=== PATIENT | female | born 1945 | race Caucasian/White ===

== ENCOUNTER 2017-10-07 09:52 | Inpatient (IN) | payer MEDICARE, MEDICAID ==
[2017-10-07 10:28] LABS: #Eosinphils 0.1 thou/uL (0.0-0.7); #Lymphocytes 1.7 thou/uL (1.20-3.40); #Neutrophils 8.3 thou/uL (1.40-6.50); %Basophils 0.3 % (0.0-1.0); %Lymphocytes 15.3 % (21.0-51.0); %Monocytes 8.9 % (0.0-10.0); %Neutrophils 74.4 % (42.0-75.0); Mean Corpuscular HGB CONC 33.1 g/dL (32.0-36.0); Mean Corpuscular Hemoglobin 29.5 pg (27.0-31.0); Mean Platelet Volume 7.5 fL (7.4-10.4); Platelet Count 224 thou/uL (130-400); RBC Distribution Width 13.9 % (11.5-14.5); Red Blood Cell (RBC) Count 3.72 mill/uL (4.20-5.40); White Blood Cell (WBC) Count 11.2 thou/uL (4.8-10.8)
[2017-10-07 10:50] LABS: ALT (SGPT) 11 U/L (8-55); AST (SGOT) 17 U/L (5-34); Albumin 4.1 g/dL (3.4-4.8); Alkaline Phosphatase 79 U/L (40-150); Anion Gap 13 mmol/L (10-20); BUN (Urea Nitrogen) 16 mg/dL (9.8-20.1); Bilirubin, Total 0.4 mg/dL (0.2-1.2); Calc. Creatinine Clearance 0 mL/min (70-130); Calcium 9.4 mg/dL (7.8-10.44); Carbon Dioxide 23 mmol/L (23-31); Chloride 104 mmol/L (98-107); Estimated GFR-MDRD 63; Globulin 2.7 g/dL (2.4-3.5); Glucose 140 mg/dL (83-110); Potassium 4.1 mmol/L (3.5-5.1); Protein, Total 6.8 g/dL (6.0-8.3); Sodium 136 mmol/L (136-145)
[2017-10-07] MEDS ORDERED: metroNIDAZOLE 500 MG in Premix Bag 1 BAG IVPB SCH ×2 (11:00→14:00)
[2017-10-07] MEDS ORDERED: metroNIDAZOLE 500 MG/100 ML BAG ONE (11:30)
[2017-10-07] MEDS ORDERED: Sodium Chloride 0.65% Nasal 44 ML BOT EA NARE PRN (12:36)
[2017-10-07] MEDS ORDERED: Loratadine 10 MG TAB PO PRN (12:36)
[2017-10-07] MEDS ORDERED: Ondansetron HCl/PF 4 MG/2 ML Vial IVP PRN (12:36)
[2017-10-07] MEDS ORDERED: Chloraseptic Spray 180 ml Bottle PO PRN (12:36)
[2017-10-07] MEDS ORDERED: Artificial Tears 18 DROP/0.9 ML EA EYE PRN (12:36)
[2017-10-07] MEDS ORDERED: Senokot 8.6 MG TAB PO PRN (12:36)
[2017-10-07] MEDS ORDERED: Eucerin (Mineral Oil/Petrolatum,White) 30 gm Jar TOP PRN (12:36)
[2017-10-07] MEDS ORDERED: hydrALAZINE 20 MG/ML VIAL SLOW IVP PRN (12:36)
[2017-10-07] MEDS ORDERED: Zolpidem Tartrate 5 MG TAB PO PRN (12:36)
[2017-10-07] MEDS ORDERED: Ondansetron ODT 4 MG TAB PO PRN (12:36)
[2017-10-07] MEDS ORDERED: Acetaminophen 325 MG TAB PO PRN (12:36)
[2017-10-07] MEDS ORDERED: Mag-Al 1200 mg/1200 mg/30 ML UDCUP PO PRN (12:36)
[2017-10-07] MEDS ORDERED: Milk Of Magnesia 30 ML UDCUP PO PRN (12:36)
[2017-10-07] MEDS ORDERED: Diabetic Tussin 200 MG/10 ML UDCUP PO PRN (12:36)
[2017-10-07 12:40] VITALS: BMI 25.6
[2017-10-07] MEDS ORDERED: HumaLOG 300 UNITS/3 ML VIAL SC PRN ×2 (12:40)
[2017-10-07] MEDS ORDERED: Dextrose 50% Abboject 50 ML SYRINGE SLOW IVP PRN (12:40)
[2017-10-07] MEDS ORDERED: Dextrose 5% in Water 1,000 ML IV PRN (12:40)
[2017-10-07] MEDS ORDERED: Mometasone/Formoterol 120 PUFF INHALER INH PRN (12:41)
--- NOTE | 2017-10-07 13:12 | HP ---
PRIMARY CARE PHYSICIAN: Dr. Boy Quintanilla. REASON FOR ADMISSION: Acute colitis and hematochezia. HISTORY OF PRESENT ILLNESS: A 72-year-old female who has underlying history of diabetes type 2, hype rtension, COPD, chronic respiratory failure on home oxygen who went last night to [facility] for hematochezia. The patient was having hematochezia at home yesterday afternoon. She was havin g lower abdominal severe crampy pain. Her pain was also going to back. She had a couple of times of hematochezia and that is why family member took her to emergency room last night and CT of the abdom en and pelvis was done which showed colitis. Patient was treated with IV antibiotic therapy in the e mergency room and she was discharged with a prescription of oral antibiotic therapy and outpatient fo llowup with cellophane bath mixer. The patient went to home and she had a large bloody bowel movement around 1:00 a.m. and subsequently at 4:00 a.m. and this morning around 8:00 a.m. It was significant amount and jelly-like associated w ith crampy abdominal pain. The patient was feeling nausea, vomiting, and dizziness. She was feeling exhausted and very weak. Normally, the patient take aspirin, but she was not taking aspirin for the last couple of days. The patient had a colonoscopy several years ago by Dr. Taylor. The patient also has previous history of weight loss, but recently she started gaining weight. She denies any f amily history of colon cancer. She denies any associated constipation. She denies any diarrhea. Sh e denies any recent antibiotic exposure other than, which was given last night. Last night, the patient had routine blood test, at that time her hemoglobin was stable and she did no t have any ongoing bleeding and that is why she was discharged from the ER. Today, her blood count i s pretty much stable from last night. This morning, the patient was having frequent episodes of melly tochezia and that is why she called her primary care physician, Dr. Quintanilla who advised her to go to emergency room for further evaluation. In the emergency room, patient was hemodynamically stable. The patient denies any UTI symptoms. She denies any headache, fall, syncope. She denies any chest pain, palpitation. She denies any cough, hemoptysis. REVIEW OF SYSTEMS: The following complete review of systems was negative, unless otherwise mentioned in the HPI or below: Constitutional: Weight loss or gain, ability to conduct usual activities. Skin: Rash, itching. Eyes: Double vision, pain. ENT/Mouth: Nose bleeding, neck stiffness, pain, tenderness. Cardiovascular: Palpitations, dyspnea on exertion, orthopnea. Respiratory: Shortness of breath, wheezing, cough, hemoptysis, fever or night sweats. Gastrointestinal: Poor appetite, abdominal pain, heartburn, nausea, vomiting, constipation, or diarr hea. Genitourinary: Urgency, frequency, dysuria, nocturia. Musculoskeletal: Pain, swelling. Neurologic/Psychiatric: Anxiety, depression. Allergy/Immunologic: Skin rash, bleeding tendency. Please see my HPI for pertinent positive and negative. All other review of system reviewed and negat so except as mentioned in the HPI. PAST MEDICAL HISTORY: Diabetes type 2, gastroesophageal reflux disease, dyslipidemia, COPD, hyperten juanjose, chronic respiratory failure on home oxygen. PAST SURGICAL HISTORY: Laparotomy, hysterectomy, back surgery for ruptured disk, appendicectomy, ton sillectomy. PAST PSYCHIATRIC HISTORY: Anxiety and depression. SOCIAL HISTORY: The patient lives at home. She is an ex-smoker. She quit smoking for 5 years ago. She lives at home with the family. No history of alcohol or other illicit drug abuse. FAMILY HISTORY: Grandson recently diagnosed with Crohn's disease. Mother had a stroke. Father had metastatic lung cancer. ALLERGIES: CODEINE. CURRENT HOME MEDICATIONS: Nexium 40 mg p.o. daily, Prozac 20 mg p.o. daily, quinapril 40 mg p.o. gisselle ly, amlodipine 2.5 mg p.o. daily, levocetirizine 5 mg p.o. daily, meclizine 25 mg as needed, Januvia 50 mg p.o. daily, amlodipine 2.5 mg p.o. daily, pravastatin 40 mg p.o. at bedtime, gabapentin 300 mg p.o. t.i.d., aspirin 81 mg p.o. daily, Cardizem-CD 180 mg 2 tablets in the morning. EMERGENCY ROOM COURSE: Patient is given Levaquin, Flagyl, and IV fluid. PHYSICAL EXAMINATION: VITAL SIGNS: On arrival, blood pressure 136/73, pulse 69, respiratory rate 20, temperature 98.3, sat uration 98% on room air, weight 85.2 kilograms. GENERAL: The patient is currently alert, awake, no obvious acute distress. HEENT: Head: Normocephalic, atraumatic. Eyes: Pupils round, reactive to light. Extraocular muscl e intact. ENT: Oropharynx within normal limits. Moist mucous membranes. No oral lesion, no pharyn geal erythema, no exudate. NECK: Supple, no JVD, no thyromegaly, no carotid bruit, no jugular venous distention. LUNGS: Clear to auscultation without any rhonchi or rales. CARDIAC: S1, S2 appears regular. No murmur, no gallop, no rub. ABDOMEN: Soft. The patient does have diffuse tenderness in lower abdomen, no peritoneal sign, no gu arding, no rigidity, no rebound. BACK: Unremarkable, no CVA tenderness. EXTREMITIES: Upper extremity, passive movement of all joints are normal. Lower extremity, no edema, no calf tenderness. Good distal pulsation. SKIN: No skin rash. HEMATOLOGICAL: No lymphadenopathy. PSYCHIATRIC: Normal affect. NEUROLOGIC: Nonfocal examination. SIGNIFICANT LABORATORY DATA AND IMAGING: Blood test done last night in the emergency room reviewed. Currently, CBC: WBC 11.2, hemoglobin 11.0, platelet 224. INR 1.0. BMP: Sodium 136, potassium 4.1 , chloride 104, carbon dioxide 23, anion gap 13, BUN 16, creatinine 0.89, glucose 140, calcium 9.4. LFT: AST 17, ALT 11, alkaline phosphatase 79, albumin 4.1. Cardiac enzymes negative. Urinalysis, p roteinuria. CT of the abdomen and pelvis done last night in the emergency room, which showed left co fernanda mural thickening and surrounding inflammation consistent with colitis. ASSESSMENT AND PLAN: 1. Acute left-sided colitis, most likely this patient has ischemic colitis given multiple medical pr oblems. Her pain is also out of proportion to examine. She has hematochezia. The patient's another differential is infectious etiology, but less likely, we will rule out infectious etiology as well. Another possibility is diverticular bleed, but associated pain is against of diverticular bleed, but is possible. At this point, the patient will need a GI consultation. The patient will need a colon oscopy. We will keep her on clear liquid diet. We will continue with IV fluid. We will continue em piric Levaquin and Flagyl for possible infection and send stool for infection workup. We will monito r hemoglobin and consider transfusion if hemoglobin is less than 7. 2. Diabetes type 2. Insulin as per sliding scale per protocol. Continue Januvia 50 mg p.o. daily. 3. Anxiety and depression. Continue Prozac 20 mg p.o. daily. 4. Hypertension. Continue quinapril 40 mg p.o. daily, amlodipine 2.5 mg p.o. daily and Cardizem-CD 360 mg p.o. daily. 5. Gastroesophageal reflux disease. We will continue Protonix 40 mg IV daily. 6. Dyslipidemia. We will continue pravastatin 40 mg p.o. at bedtime. 7. Chronic respiratory failure on home oxygen therapy. We will maintain oxygen saturation above 92% with oxygen. 8. Peripheral neuropathy. Continue gabapentin 300 mg p.o. 3 times daily. 9. Anemia, likely due to blood loss. We will monitor H&H and consider transfusion if hemoglobin is less than 7. 10. Chronic obstructive pulmonary disease. We will continue DuoNeb therapy q.6 hourly p.r.n. 11. D eep venous thrombosis prophylaxis. No Lovenox or antiplatelet medication because of bleeding. 12. Gastrointestinal prophylaxis. Patient is already on Protonix therapy. 13. CODE STATUS: The patient is FULL CODE. Patient's daughter is surrogate decision maker. Disposition plan based on clinical course. We are expecting patient's stay in the hospital more than 2 midnights. Plan of care discussed with the patient and family member at bedside in the emergency room.
[2017-10-07] MEDS: Sodium Chloride 0.9% 1,000 ML IV SCH ×2 (13:28→23:35)
[2017-10-07] MEDS: Fentanyl 100 MCG/2 ML VIAL SLOW IVP PRN ×2 (13:58→23:30)
[2017-10-07 14:20] LABS: Hemoglobin 9.8 g/dL (12.0-16.0); Mean Corpuscular HGB CONC 33.7 g/dL (32.0-36.0); Mean Corpuscular Hemoglobin 29.9 pg (27.0-31.0); Mean Corpuscular Volume 88.8 fL (78.0-98.0); Mean Platelet Volume 6.8 fL (7.4-10.4); Platelet Count 182 thou/uL (130-400); RBC Distribution Width 14.2 % (11.5-14.5); Red Blood Cell (RBC) Count 3.28 mill/uL (4.20-5.40); White Blood Cell (WBC) Count 10.2 thou/uL (4.8-10.8)
--- NOTE | 2017-10-07 14:21 | CON ---
DATE OF CONSULTATION: 10/07/2017 CHIEF COMPLAINT: Abdominal pain and bloody stools. HISTORY OF PRESENT ILLNESS: Ms. Saldana is a 72-year-old woman who yesterday afternoon had an abrupt on set of bloody diarrhea. She had a couple episodes at home and then went to the emergency room in [facility]. She was evaluated there and discharged home with recommendation to follow up with GI as an ou tpatient. She then had multiple other large bloody stools such that she came on back to the emergenc y room this morning. She had one episode of nausea with vomiting yesterday afternoon, that has since resolved. She has diffuse aching and constant abdominal pain and more severe cramping in the left c olon immediately before bowel movements. She has had no fever with this. She ate breakfast normally yesterday morning and just had abrupt onset of these symptoms yesterday afternoon. PAST MEDICAL HISTORY: COPD on home oxygen, diabetes mellitus type 2, gastroesophageal reflux, hyperl ipidemia, hypertension. She has a history of colon polyps with last colonoscopy over [address] Taylor in the [facility] they believe. She was apparently treated for tub erculosis in the past. PAST SURGICAL HISTORY: She had what she describes as an exploratory surgery to evaluate vaginal blee ding in the past. She has since undergone complete hysterectomy. She has had back surgery, appendec charisse, tonsillectomy and orthopedic surgery. FAMILY HISTORY: Negative for GI malignancy or pancreatic cancer. SOCIAL HISTORY: She smoked all her life. She quit smoking last year and has been using E-cigarettes intermittently since then. No drugs, no alcohol. REVIEW OF SYSTEMS: Negative x10 systems reviewed except as stated in history of present illness. ALLERGIES: CODEINE. MEDICATIONS PRIOR TO ADMISSION: Nexium, fluoxetine, quinapril, amlodipine, levocetirizine, meclizine , Januvia, amlodipine, pravastatin, gabapentin, aspirin, diltiazem. PHYSICAL EXAMINATION: VITAL SIGNS: Temperature 98.1, pulse 61, blood pressure 147/67. GENERAL: She is in no acute distress, awake and alert. EYES: Eyes have no scleral icterus. OROPHARYNX: Clear, without lesions. NECK: No cervical or supraclavicular lymphadenopathy. LUNGS: Clear to auscultation bilaterally. HEART: Regular rate and rhythm without murmur. ABDOMEN: Soft. She is tender in the lower abdomen bilaterally without guarding. Bowel sounds are p resent. EXTREMITIES: No lower extremity edema. NEUROLOGIC: Cranial nerves are grossly intact. LABORATORY: Creatinine 0.89. LFTs were normal. Albumin 4.1. INR 1.0. White blood cell count 11.2 , hemoglobin 11.0, platelets 224. IMPRESSION: Ischemic colitis. She presents with abrupt onset of bloody diarrhea and left-sided abdo kevin pain. She is on home oxygen for emphysema and review of the CT scan shows significant calcific ations of the abdominal aorta. She is on multiple blood pressure medications. CT scan shows an abru pt transition from normal wall thickness colon to thickened colon starting at the splenic flexure all the way down to the left colon to the rectum. This is in the superior mesenteric artery distributio n. Treatment will be with IV fluids. I would cover with antibiotics as well. We will still need to rule out infectious source with stool studies. She is due for a colonoscopy in light of her history of colon polyps. Colonoscopy currently will unlikely change room attendant. If she fails to improve wi th IV fluids and antibiotics, then colonoscopy can be performed to confirm the diagnosis and rule out inflammatory bowel disease; however, inflammatory bowel disease is very unlikely given the new onset of abrupt symptoms. Colonoscopy will be better served to be done in a month, such that colon polyp surveillance can be performed at the same time and a full colonoscopy to evaluate healing. She follo ws with Dr. Taylor previously and can follow up for outpatient colonoscopy in a month for that. C T scan did note presence of diverticulosis; however diverticulitis certainly would not cause this cli nical picture or distribution of inflammatory changes in the colon. RECOMMENDATIONS: 1. IV fluids. 2. She is on levofloxacin and metronidazole. She can complete a 7-day course of these antibiotics. 3. Hopefully, she will be able to discharge home in around 2-4 days depending on her response to the fluids. 4. To avoid future episodes she will need to drink plenty of fluids and avoid hypotension. She is o n multiple antihypertensive medications and will need to monitor her blood pressure.
[2017-10-07] MEDS: Gabapentin 100 MG CAP PO SCH ×2 (15:34→20:03)
[2017-10-07] MEDS: Pravastatin Sodium 40 MG TAB PO SCH (15:35)
[2017-10-07] MEDS: Alogliptin 25 MG TAB PO SCH (15:36)
[2017-10-07 18:26] LABS: Hemoglobin 9.8 g/dL (12.0-16.0)
[2017-10-07] MEDS: metroNIDAZOLE 500 MG in Premix Bag 1 BAG IVPB SCH (19:51)
[2017-10-07] MEDS: Meclizine HCl 25 MG TAB PO SCH (20:04)
[2017-10-08 00:03] LABS: Hemoglobin 9.7 g/dL (12.0-16.0)
[2017-10-08] MEDS: metroNIDAZOLE 500 MG in Premix Bag 1 BAG IVPB SCH ×3 (04:05→20:17)
[2017-10-08 04:54] LABS: #Basophils 0.1 thou/uL (0.0-0.2); #Eosinphils 0.2 thou/uL (0.0-0.7); #Lymphocytes 2.3 thou/uL (1.20-3.40); #Monocytes 0.7 thou/uL (0.11-0.59); #Neutrophils 4.4 thou/uL (1.40-6.50); %Basophils 0.8 % (0.0-1.0); %Eosinophils 2.6 % (0.0-10.0); %Lymphocytes 30.1 % (21.0-51.0); %Monocytes 9.1 % (0.0-10.0); %Neutrophils 57.4 % (42.0-75.0); Hemoglobin 9.5 g/dL (12.0-16.0); Mean Corpuscular HGB CONC 32.9 g/dL (32.0-36.0); Mean Corpuscular Hemoglobin 29.5 pg (27.0-31.0); Mean Corpuscular Volume 89.7 fL (78.0-98.0); Mean Platelet Volume 7.3 fL (7.4-10.4); Platelet Count 197 thou/uL (130-400); RBC Distribution Width 14.1 % (11.5-14.5); Red Blood Cell (RBC) Count 3.22 mill/uL (4.20-5.40); White Blood Cell (WBC) Count 7.7 thou/uL (4.8-10.8)
[2017-10-08 05:15] LABS: ALT (SGPT) 11 U/L (8-55); AST (SGOT) 14 U/L (5-34); Albumin 3.4 g/dL (3.4-4.8); Alkaline Phosphatase 64 U/L (40-150); Anion Gap 11 mmol/L (10-20); BUN (Urea Nitrogen) 7 mg/dL (9.8-20.1); Bilirubin, Total 0.3 mg/dL (0.2-1.2); Calc. Creatinine Clearance 115 mL/min (70-130); Calcium 8.2 mg/dL (7.8-10.44); Carbon Dioxide 24 mmol/L (23-31); Chloride 107 mmol/L (98-107); Estimated GFR-MDRD Greater than 90; Globulin 2.1 g/dL (2.4-3.5); Glucose 115 mg/dL (83-110); Potassium 3.8 mmol/L (3.5-5.1); Protein, Total 5.5 g/dL (6.0-8.3); Sodium 138 mmol/L (136-145)
[2017-10-08] MEDS: Saccharomyces boulardii 250 MG CAP PO SCH (08:57)
[2017-10-08] MEDS: Amlodipine 5 MG TAB PO SCH (08:57)
[2017-10-08] MEDS: Gabapentin 100 MG CAP PO SCH ×3 (08:58→20:17)
[2017-10-08] MEDS: Pantoprazole 40 MG VIAL IVP SCH (08:58)
[2017-10-08] MEDS: FLUoxetine HCl 20 MG CAP PO SCH (08:58)
[2017-10-08] MEDS: Sodium Chloride 0.9% 1,000 ML IV SCH ×3 (08:59→23:59)
[2017-10-08] MEDS ORDERED: Alogliptin 25 MG TAB PO SCH (09:00)
[2017-10-08] MEDS ORDERED: Pravastatin Sodium 40 MG TAB PO SCH (09:00)
--- NOTE | 2017-10-08 12:10 | PDOC.PN ---
- Subjective Encounter Start Date: 10/08/17 Encounter Start Time: 06:45 -: old records requested/rev Patient seen and examined. No new complaints. No overnight events - Objective Resuscitation Status: Resuscitation Status FULL:Full Resuscitation MAR Reviewed: Yes Vital Signs & Weight: Vital Signs (12 hours) Temp Pulse Resp BP BP Pulse Ox 10/08/17 08:57 69 10/08/17 08:00 97.6 F 69 16 96 10/08/17 07:33 97.6 F 69 16 148/68 H 96 10/08/17 04:00 97.5 F L 73 19 126/56 L 95 Weight Admit Weight 189 lb 1 oz Weight 189 lb 9.173 oz I&O: 10/07/17 10/08/17 10/09/17 06:59 06:59 06:59 Intake Total 3025 760 Balance 3025 760 Result Diagrams: 10/08/17 03:56 10/08/17 03:56 Additional Labs: Accuchecks 10/08/17 10/08/17 10/07/17 11:10 05:29 19:18 POC Glucose 107 140 H 138 H 10/07/17 10/07/17 15:58 13:02 POC Glucose 102 116 H Phys Exam - Physical Examination Constitutional: NAD HEENT: PERRLA, moist MMs, sclera anicteric Neck: no JVD, supple Respiratory: no wheezing, no rales, no rhonchi Cardiovascular: RRR, no significant murmur, no rub Gastrointestinal: soft, non-tender, no distention, positive bowel sounds Musculoskeletal: no edema, pulses present Neurological: non-focal, normal sensation Psychiatric: normal affect, A&O x 3 Skin: no rash, normal turgor Dx/Plan (1) Acute colitis Code(s): K52.9 - NONINFECTIVE GASTROENTERITIS AND COLITIS, UNSPECIFIED Status : Acute (2) Chronic respiratory failure with hypoxia, on home oxygen therapy Code(s): J96.11 - CHRONIC RESPIRATORY FAILURE WITH HYPOXIA; Z99.81 - DEPENDENCE ON SUPPLEMENTAL OXYGEN Status: Acute (3) Anemia, normocytic normochromic Code(s): D64.9 - ANEMIA, UNSPECIFIED Status: Chronic (4) COPD (chronic obstructive pulmonary disease) Status: Chronic (5) Diabetes type 2, controlled Code(s): E11.9 - TYPE 2 DIABETES MELLITUS WITHOUT COMPLICATIONS Status: Chronic (6) Dyslipidemia Code(s): E78.5 - HYPERLIPIDEMIA, UNSPECIFIED Status: Chronic (7) GERD (gastroesophageal reflux disease) Code(s): K21.9 - GASTRO-ESOPHAGEAL REFLUX DISEASE WITHOUT ESOPHAGITIS Status: Chronic (8) Hypertension Code(s): I10 - ESSENTIAL (PRIMARY) HYPERTENSION Status: Chronic - Plan cont current plan of care, continue antibiotics * suspected for ischemic colitis * infection work up so far negative * medication reviewed as below * symptomatic treatment * continue empiric levaquin and flagyl * GI recommendation noted * continue IVF * advance to full liquid diet * pain controlled. Review of Systems - Review of Systems Eyes: negative: Pain, Vision Change, Conjunctivae Inflammation, Eyelid Inflammation, Redness, Other ENT: negative: Ear Pain, Ear Discharge, Nose Pain, Nose Discharge, Nose Congestion, Mouth Pain, Mouth Swelling, Throat Pain, Throat Swelling, Other Respiratory: negative: Cough, Dry, Shortness of Breath, Hemoptysis, SOB with Excertion, Pleuritic Pain, Sputum, Wheezing Cardiovascular: negative: chest pain, palpitations, orthopnea, paroxysmal nocturnal dyspnea, edema, light headedness, other Gastrointestinal: Abdominal Pain. negative: Nausea, Vomiting, Diarrhea, Constipation, Melena, Hematochezia, Other Genitourinary: negative: Dysuria, Frequency, Incontinence, Hematuria, Retention , Other Musculoskeletal: negative: Neck Pain, Shoulder Pain, Arm Pain, Back Pain, Hand Pain, Leg Pain, Foot Pain, Other Skin: negative: Rash, Lesions, Zcahariah, Bruising, Other - Medications/Allergies Allergies/Adverse Reactions: Allergies Allergy/AdvReac Type Severity Reaction Status Date / Time metformin Allergy Mild Verified 10/07/17 19:01 codeine Allergy Verified 10/07/17 10:45 Medications: Current Medications Acetaminophen (Tylenol) 650 mg PO Q4H PRN PRN Reason: Headache/Fever or Pain Al Hydroxide/Mg Hydroxide (Maalox) 30 ml PO Q6H PRN PRN Reason: Heartburn or Indigestion Alogliptin Benzoate (Alogliptin) 12.5 mg PO 1500 [facility] Last Admin: 10/07/17 15:36 Dose: 12.5 mg Amlodipine Besylate (Norvasc) 2.5 mg PO DAILY [facility] Last Admin: 10/08/17 08:57 Dose: 2.5 mg Artificial Tears (Tears Naturale) 0 drop EA EYE PRN PRN PRN Reason: Dry Eyes Dextrose/Water (Dextrose 50%) 25 gm SLOW IVP PRN PRN PRN Reason: Hypoglycemia Diltiazem HCl (Cardizem Cd) 360 mg PO [facility] Last Admin: 10/07/17 20:04 Dose: 360 mg Fentanyl (Sublimaze) 25 mcg SLOW IVP Q4H PRN PRN Reason: Pain Last Admin: 10/07/17 23:30 Dose: 25 mcg Fluoxetine HCl (Prozac) 20 mg PO DAILY [facility] Last Admin: 10/08/17 08:58 Dose: 20 mg Gabapentin (Neurontin) 100 mg PO TID [facility] Last Admin: 10/08/17 08:58 Dose: 100 mg Glucagon (Glucagon) 1 mg IM PRN PRN PRN Reason: Hypoglycemia Guaifenesin (Robitussin Sf) 200 mg PO Q4H PRN PRN Reason: Cough Hydralazine HCl (Apresoline) 10 mg SLOW IVP Q4H PRN PRN Reason: Systolic BP > 180 Levofloxacin 500 mg/ Device 100 mls @ 100 mls/hr IVPB 1000 [facility] Last Admin: 10/08/17 09:36 Dose: 100 mls Sodium Chloride (Normal Saline 0.9%) 1,000 mls @ 100 mls/hr IV .Q10H [facility] Last Admin: 10/08/17 08:59 Dose: Not Given Dextrose/Water (D5w) 1,000 mls @ 0 mls/hr IV .Q0M PRN; As Directed PRN Reason: Hypoglycemia Metronidazole 500 mg/ Device 100 mls @ 100 mls/hr IVPB 0400,1200,2000 [facility] Last Admin: 10/08/17 04:05 Dose: 100 mls Insulin Human Lispro (Humalog) 0 units SC .MODERATE SLIDING SC PRN PRN Reason: Moderate Correctional Scale Insulin Human Lispro (Humalog) 0 units SC .BEDTIME SLIDING SC PRN PRN Reason: Bedtime Correctional Scale Loratadine (Claritin) 10 mg PO DAILYPRN PRN PRN Reason: Sinus Symptoms Magnesium Hydroxide (Milk Of Magnesium) 30 ml PO DAILYPRN PRN PRN Reason: Constipation Meclizine HCl (Antivert) 25 mg PO [facility] Last Admin: 10/07/17 20:04 Dose: 25 mg Mineral Oil/White Petrolatum (Eucerin Cream) 0 gm TOP BIDPRN PRN PRN Reason: Dry Skin Mometasone Furoate/Formoterol Fumar (Dulera 200 Mcg/5 Mcg Inhaler) 1 puff INH BID PRN PRN Reason: SOB &/or Wheezing Ondansetron HCl (Zofran Odt) 4 mg PO Q6H PRN PRN Reason: Nausea/Vomiting Ondansetron HCl (Zofran) 4 mg IVP Q6H PRN PRN Reason: Nausea/Vomiting Pantoprazole Sodium (Protonix) 40 mg IVP DAILY [facility] Last Admin: 10/08/17 08:58 Dose: 40 mg Phenol (Chloraseptic [place] 180 Ml Bot) 0 ml PO PRN PRN PRN Reason: Sore Throat Pravastatin Sodium (Pravachol) 40 mg PO 1500 [facility] Last Admin: 10/07/17 15:35 Dose: 40 mg Quinapril HCl (Accupril) 40 mg PO DAILY [facility] Last Admin: 10/08/17 09:04 Dose: 40 mg Saccharomyces Boulardii (Florastor) 250 mg PO DAILY [facility] Last Admin: 10/08/17 08:57 Dose: 250 mg Senna (Senokot) 2 tab PO HSPRN PRN PRN Reason: Constipation Sodium Chloride ([place] Nasal [place] 0.65%) 0 ml EA NARE QIDPRN PRN PRN Reason: Nasal Congestion Sodium Chloride (Flush - Normal Saline) 10 ml IVF Q12HR [facility] Last Admin: 10/08/17 08:59 Dose: 10 ml Sodium Chloride (Flush - Normal Saline) 10 ml IVF PRN PRN PRN Reason: Saline Flush Zolpidem Tartrate (Ambien) 5 mg PO HSPRN PRN PRN Reason: Insomnia
[2017-10-08] MEDS: Fentanyl 100 MCG/2 ML VIAL SLOW IVP PRN (12:35)
--- NOTE | 2017-10-08 14:55 | PRG ---
DATE OF SERVICE: 10/08/2017 SUBJECTIVE: Ms. Saldana had again multiple small volume bloody stools through the night. She had no st ool output for several hours yesterday afternoon. She has had no nausea or vomiting, tolerating mann r liquids well at this point. OBJECTIVE: VITAL SIGNS: Temperature is 97.6, pulse 69, blood pressure 148/68. GENERAL: She is in no acute distress, awake and alert. LUNGS: Clear to auscultation bilaterally. HEART: Regular rate and rhythm. ABDOMEN: Tender in the lower abdomen without guarding. Bowel sounds are present. EXTREMITIES: No lower extremity edema. LABORATORY DATA: Creatinine 0.61. White blood cell count 7.7, hemoglobin 9.5, platelets 197. IMPRESSION: Ischemic colitis. RECOMMENDATIONS: 1. Continue IV antibiotics and IV fluids. She is on probiotics. 2. We will recommend followup colonoscopy in around 4 weeks after resolution of the acute ischemic c olitis. She follows with Dr. Taylor as an outpatient. 3. Continue clear liquids for now. She is a little bit more distended with more bloating today.
[2017-10-08] MEDS: Alogliptin 25 MG TAB PO SCH (15:44)
[2017-10-08] MEDS: Pravastatin Sodium 40 MG TAB PO SCH (15:45)
[2017-10-08] MEDS: Meclizine HCl 25 MG TAB PO SCH (20:17)
[2017-10-09] MEDS: Sodium Chloride 0.9% 1,000 ML IV SCH (04:07)
[2017-10-09] MEDS: metroNIDAZOLE 500 MG in Premix Bag 1 BAG IVPB SCH ×3 (04:07→20:09)
[2017-10-09] MEDS: Amlodipine 5 MG TAB PO SCH (08:38)
[2017-10-09] MEDS: Gabapentin 100 MG CAP PO SCH ×3 (08:38→20:09)
[2017-10-09] MEDS: Saccharomyces boulardii 250 MG CAP PO SCH (08:38)
[2017-10-09] MEDS: Pantoprazole 40 MG VIAL IVP SCH (08:39)
[2017-10-09] MEDS: FLUoxetine HCl 20 MG CAP PO SCH (08:42)
--- NOTE | 2017-10-09 09:00 | PDOC.PN ---
- Subjective Encounter Start Date: 10/09/17 Encounter Start Time: 07:50 today she feels better, less bloating, no further hematochezia, feels hungry - Objective Resuscitation Status: Resuscitation Status FULL:Full Resuscitation MAR Reviewed: Yes Vital Signs & Weight: Vital Signs (12 hours) Temp Pulse Resp BP BP Pulse Ox 10/09/17 08:38 66 10/09/17 07:26 98.0 F 66 18 148/64 H 96 10/09/17 04:07 97.8 F 71 18 143/62 H 94 L 10/09/17 01:14 94 L 10/08/17 23:54 97.6 F 75 18 151/55 H 94 L Weight Admit Weight 189 lb 1 oz Weight 192 lb 8 oz I&O: 10/08/17 10/09/17 10/10/17 06:59 06:59 06:59 Intake Total 3025 4093 Balance 3025 4093 Result Diagrams: 10/08/17 03:56 10/08/17 03:56 Additional Labs: Accuchecks 10/09/17 10/08/17 10/08/17 05:51 20:18 16:31 POC Glucose 128 H 107 106 10/08/17 11:10 POC Glucose 107 Phys Exam - Physical Examination Constitutional: NAD HEENT: PERRLA, moist MMs, sclera anicteric Neck: no JVD, supple Respiratory: no wheezing, no rales, no rhonchi Cardiovascular: RRR, no significant murmur, no rub Gastrointestinal: soft, non-tender, no distention, positive bowel sounds Musculoskeletal: no edema, pulses present Neurological: non-focal, normal sensation, moves all 4 limbs Lymphatic: no nodes Psychiatric: normal affect, A&O x 3 Skin: no rash, normal turgor Dx/Plan (1) Acute colitis Code(s): K52.9 - NONINFECTIVE GASTROENTERITIS AND COLITIS, UNSPECIFIED Status : Acute Comment: acute ischemic colitis (2) Chronic respiratory failure with hypoxia, on home oxygen therapy Code(s): J96.11 - CHRONIC RESPIRATORY FAILURE WITH HYPOXIA; Z99.81 - DEPENDENCE ON SUPPLEMENTAL OXYGEN Status: Chronic (3) Anemia, normocytic normochromic Code(s): D64.9 - ANEMIA, UNSPECIFIED Status: Chronic (4) COPD (chronic obstructive pulmonary disease) Status: Chronic (5) Diabetes type 2, controlled Code(s): E11.9 - TYPE 2 DIABETES MELLITUS WITHOUT COMPLICATIONS Status: Chronic (6) Dyslipidemia Code(s): E78.5 - HYPERLIPIDEMIA, UNSPECIFIED Status: Chronic (7) GERD (gastroesophageal reflux disease) Code(s): K21.9 - GASTRO-ESOPHAGEAL REFLUX DISEASE WITHOUT ESOPHAGITIS Status: Chronic (8) Hypertension Code(s): I10 - ESSENTIAL (PRIMARY) HYPERTENSION Status: Chronic - Plan cont current plan of care, continue antibiotics, out of bed/ambulate, DVT proph w/SCDs * continue IVF * continue one more day empiric antibiotics * pain controlled * medication reviewed as below * symptomatic treatment * ambulate today * advance to full liquid diet today. Review of Systems - Review of Systems Eyes: negative: Pain, Vision Change, Conjunctivae Inflammation, Eyelid Inflammation, Redness, Other ENT: negative: Ear Pain, Ear Discharge, Nose Pain, Nose Discharge, Nose Congestion, Mouth Pain, Mouth Swelling, Throat Pain, Throat Swelling, Other Respiratory: negative: Cough, Dry, Shortness of Breath, Hemoptysis, SOB with Excertion, Pleuritic Pain, Sputum, Wheezing Cardiovascular: negative: chest pain, palpitations, orthopnea, paroxysmal nocturnal dyspnea, edema, light headedness, other Gastrointestinal: negative: Nausea, Vomiting, Abdominal Pain, Diarrhea, Constipation, Melena, Hematochezia, Other Genitourinary: negative: Dysuria, Frequency, Incontinence, Hematuria, Retention , Other Musculoskeletal: negative: Neck Pain, Shoulder Pain, Arm Pain, Back Pain, Hand Pain, Leg Pain, Foot Pain, Other Skin: negative: Rash, Lesions, Zachariah, Bruising, Other - Medications/Allergies Allergies/Adverse Reactions: Allergies Allergy/AdvReac Type Severity Reaction Status Date / Time metformin Allergy Mild Verified 10/07/17 19:01 codeine Allergy Verified 10/07/17 10:45 Medications: Current Medications Acetaminophen (Tylenol) 650 mg PO Q4H PRN PRN Reason: Headache/Fever or Pain Al Hydroxide/Mg Hydroxide (Maalox) 30 ml PO Q6H PRN PRN Reason: Heartburn or Indigestion Alogliptin Benzoate (Alogliptin) 12.5 mg PO 1500 [facility] Last Admin: 10/08/17 15:44 Dose: 12.5 mg Amlodipine Besylate (Norvasc) 2.5 mg PO DAILY [facility] Last Admin: 10/09/17 08:38 Dose: 2.5 mg Artificial Tears (Tears Naturale) 0 drop EA EYE PRN PRN PRN Reason: Dry Eyes Dextrose/Water (Dextrose 50%) 25 gm SLOW IVP PRN PRN PRN Reason: Hypoglycemia Diltiazem HCl (Cardizem Cd) 360 mg PO [facility] Last Admin: 10/08/17 20:17 Dose: 360 mg Fentanyl (Sublimaze) 25 mcg SLOW IVP Q4H PRN PRN Reason: Pain Last Admin: 10/08/17 12:35 Dose: 25 mcg Fluoxetine HCl (Prozac) 20 mg PO DAILY [facility] Last Admin: 10/09/17 08:42 Dose: 20 mg Gabapentin (Neurontin) 100 mg PO TID [facility] Last Admin: 10/09/17 08:38 Dose: 100 mg Glucagon (Glucagon) 1 mg IM PRN PRN PRN Reason: Hypoglycemia Guaifenesin (Robitussin Sf) 200 mg PO Q4H PRN PRN Reason: Cough Hydralazine HCl (Apresoline) 10 mg SLOW IVP Q4H PRN PRN Reason: Systolic BP > 180 Levofloxacin 500 mg/ Device 100 mls @ 100 mls/hr IVPB 1000 [facility] Last Admin: 10/08/17 09:36 Dose: 100 mls Sodium Chloride (Normal Saline 0.9%) 1,000 mls @ 100 mls/hr IV .Q10H [facility] Last Admin: 10/09/17 04:07 Dose: Not Given Dextrose/Water (D5w) 1,000 mls @ 0 mls/hr IV .Q0M PRN; As Directed PRN Reason: Hypoglycemia Metronidazole 500 mg/ Device 100 mls @ 100 mls/hr IVPB 0400,1200,2000 [facility] Last Admin: 10/09/17 04:07 Dose: 100 mls Insulin Human Lispro (Humalog) 0 units SC .MODERATE SLIDING SC PRN PRN Reason: Moderate Correctional Scale Insulin Human Lispro (Humalog) 0 units SC .BEDTIME SLIDING SC PRN PRN Reason: Bedtime Correctional Scale Loratadine (Claritin) 10 mg PO DAILYPRN PRN PRN Reason: Sinus Symptoms Magnesium Hydroxide (Milk Of Magnesium) 30 ml PO DAILYPRN PRN PRN Reason: Constipation Meclizine HCl (Antivert) 25 mg PO [facility] Last Admin: 10/08/17 20:17 Dose: 25 mg Mineral Oil/White Petrolatum (Eucerin Cream) 0 gm TOP BIDPRN PRN PRN Reason: Dry Skin Mometasone Furoate/Formoterol Fumar (Dulera 200 Mcg/5 Mcg Inhaler) 1 puff INH BID PRN PRN Reason: SOB &/or Wheezing Ondansetron HCl (Zofran Odt) 4 mg PO Q6H PRN PRN Reason: Nausea/Vomiting Ondansetron HCl (Zofran) 4 mg IVP Q6H PRN PRN Reason: Nausea/Vomiting Last Admin: 10/08/17 12:35 Dose: 4 mg Pantoprazole Sodium (Protonix) 40 mg IVP DAILY [facility] Last Admin: 10/09/17 08:39 Dose: 40 mg Phenol (Chloraseptic [place] 180 Ml Bot) 0 ml PO PRN PRN PRN Reason: Sore Throat Pravastatin Sodium (Pravachol) 40 mg PO 1500 [facility] Last Admin: 10/08/17 15:45 Dose: 40 mg Quinapril HCl (Accupril) 40 mg PO DAILY [facility] Last Admin: 10/09/17 08:39 Dose: 40 mg Saccharomyces Boulardii (Florastor) 250 mg PO DAILY [facility] Last Admin: 10/09/17 08:38 Dose: 250 mg Senna (Senokot) 2 tab PO HSPRN PRN PRN Reason: Constipation Sodium Chloride ([place] Nasal [place] 0.65%) 0 ml EA NARE QIDPRN PRN PRN Reason: Nasal Congestion Sodium Chloride (Flush - Normal Saline) 10 ml IVF Q12HR [facility] Last Admin: 10/09/17 08:39 Dose: 10 ml Sodium Chloride (Flush - Normal Saline) 10 ml IVF PRN PRN PRN Reason: Saline Flush Zolpidem Tartrate (Ambien) 5 mg PO HSPRN PRN PRN Reason: Insomnia
--- NOTE | 2017-10-09 13:45 | PRG ---
DATE OF SERVICE: 10/09/2017 SUBJECTIVE: Ms. Saldana had a better night last night. She has had decrease in the stool output and no further bleeding. She tolerated a full liquid diet well for lunch, but then did have in this mornin g and did have an increase in the stool output after that. PHYSICAL EXAMINATION: VITAL SIGNS: Temperature 98.0, pulse 66, blood pressure 148/64. GENERAL: She is in no acute distress, awake and alert. LUNGS: Clear to auscultation bilaterally. HEART: Regular rate and rhythm. ABDOMEN: Soft, a little bit more distended after taking in full liquids. Bowel sounds are present. EXTREMITIES: No lower extremity edema. She has minimal tenderness in the abdomen. IMPRESSION: 1. Ischemic colitis, clinically improving. 2. Complete a course of levofloxacin and metronidazole for 7 days. She is encouraged to maintain go od hydration and monitor blood pressure. 3. Recommend followup colonoscopy with Dr. Taylor in 4 weeks.
[2017-10-09] MEDS: Alogliptin 25 MG TAB PO SCH (15:33)
[2017-10-09] MEDS: Pravastatin Sodium 40 MG TAB PO SCH (15:34)
[2017-10-09] MEDS: Meclizine HCl 25 MG TAB PO SCH (20:09)
[2017-10-10] MEDS: metroNIDAZOLE 500 MG in Premix Bag 1 BAG IVPB SCH ×2 (04:19→12:05)
[2017-10-10] MEDS: FLUoxetine HCl 20 MG CAP PO SCH (08:50)
[2017-10-10] MEDS: Saccharomyces boulardii 250 MG CAP PO SCH (08:50)
[2017-10-10] MEDS: Amlodipine 5 MG TAB PO SCH (08:50)
[2017-10-10] MEDS: Pantoprazole 40 MG VIAL IVP SCH (08:51)
[2017-10-10] MEDS: Gabapentin 100 MG CAP PO SCH ×2 (08:52→15:26)
--- NOTE | 2017-10-10 09:58 | PDOC.PN ---
- Subjective Encounter Start Date: 10/10/17 Encounter Start Time: 08:00 Patient seen and examined. No new complaints. No overnight events - Objective Resuscitation Status: Resuscitation Status FULL:Full Resuscitation MAR Reviewed: Yes Vital Signs & Weight: Vital Signs (12 hours) Temp Pulse Resp BP BP BP Pulse Ox 10/10/17 08:52 146/66 H 10/10/17 08:50 84 146/66 H 10/10/17 08:00 97.9 F 84 20 146/66 H 94 L 10/10/17 04:19 97.5 F L 64 18 125/56 L 98 10/09/17 23:45 98.0 F 78 18 131/63 96 Weight Admit Weight 189 lb 1 oz Weight 192 lb 8 oz I&O: 10/09/17 10/10/17 10/11/17 06:59 06:59 06:59 Intake Total 4093 3015 Output Total 1600 Balance 4093 1415 Result Diagrams: 10/08/17 03:56 10/08/17 03:56 Additional Labs: Accuchecks 10/10/17 10/09/17 10/09/17 05:35 21:13 17:05 POC Glucose 135 H 118 H 93 10/09/17 11:24 POC Glucose 119 H Phys Exam - Physical Examination Constitutional: NAD HEENT: PERRLA, moist MMs, sclera anicteric Neck: no JVD, supple Respiratory: no wheezing, no rales, no rhonchi Cardiovascular: RRR, no significant murmur, no rub Gastrointestinal: soft, non-tender, no distention, positive bowel sounds Musculoskeletal: no edema, pulses present Neurological: non-focal, normal sensation, moves all 4 limbs Psychiatric: normal affect, A&O x 3 Skin: no rash, normal turgor Dx/Plan (1) Acute colitis Code(s): K52.9 - NONINFECTIVE GASTROENTERITIS AND COLITIS, UNSPECIFIED Status : Acute Comment: acute ischemic colitis (2) Chronic respiratory failure with hypoxia, on home oxygen therapy Code(s): J96.11 - CHRONIC RESPIRATORY FAILURE WITH HYPOXIA; Z99.81 - DEPENDENCE ON SUPPLEMENTAL OXYGEN Status: Chronic (3) Anemia, normocytic normochromic Code(s): D64.9 - ANEMIA, UNSPECIFIED Status: Chronic (4) COPD (chronic obstructive pulmonary disease) Status: Chronic (5) Diabetes type 2, controlled Code(s): E11.9 - TYPE 2 DIABETES MELLITUS WITHOUT COMPLICATIONS Status: Chronic (6) Dyslipidemia Code(s): E78.5 - HYPERLIPIDEMIA, UNSPECIFIED Status: Chronic (7) GERD (gastroesophageal reflux disease) Code(s): K21.9 - GASTRO-ESOPHAGEAL REFLUX DISEASE WITHOUT ESOPHAGITIS Status: Chronic (8) Hypertension Code(s): I10 - ESSENTIAL (PRIMARY) HYPERTENSION Status: Chronic - Plan cont current plan of care, plan discussed w/ family, continue antibiotics * advance diet today * if doing ok, possible discharge later today * medication reviewed as below * symptomatic treatment. Review of Systems - Review of Systems Eyes: negative: Pain, Vision Change, Conjunctivae Inflammation, Eyelid Inflammation, Redness, Other ENT: negative: Ear Pain, Ear Discharge, Nose Pain, Nose Discharge, Nose Congestion, Mouth Pain, Mouth Swelling, Throat Pain, Throat Swelling, Other Respiratory: negative: Cough, Dry, Shortness of Breath, Hemoptysis, SOB with Excertion, Pleuritic Pain, Sputum, Wheezing Cardiovascular: negative: chest pain, palpitations, orthopnea, paroxysmal nocturnal dyspnea, edema, light headedness, other Gastrointestinal: negative: Nausea, Vomiting, Abdominal Pain, Diarrhea, Constipation, Melena, Hematochezia, Other Genitourinary: negative: Dysuria, Frequency, Incontinence, Hematuria, Retention , Other Musculoskeletal: negative: Neck Pain, Shoulder Pain, Arm Pain, Back Pain, Hand Pain, Leg Pain, Foot Pain, Other Skin: negative: Rash, Lesions, Zachariah, Bruising, Other - Medications/Allergies Allergies/Adverse Reactions: Allergies Allergy/AdvReac Type Severity Reaction Status Date / Time metformin Allergy Mild Verified 10/07/17 19:01 codeine Allergy Verified 10/07/17 10:45 Medications: Current Medications Acetaminophen (Tylenol) 650 mg PO Q4H PRN PRN Reason: Headache/Fever or Pain Al Hydroxide/Mg Hydroxide (Maalox) 30 ml PO Q6H PRN PRN Reason: Heartburn or Indigestion Alogliptin Benzoate (Alogliptin) 12.5 mg PO 1500 [facility] Last Admin: 10/09/17 15:33 Dose: 12.5 mg Amlodipine Besylate (Norvasc) 2.5 mg PO DAILY [facility] Last Admin: 10/10/17 08:50 Dose: 2.5 mg Artificial Tears (Tears Naturale) 0 drop EA EYE PRN PRN PRN Reason: Dry Eyes Dextrose/Water (Dextrose 50%) 25 gm SLOW IVP PRN PRN PRN Reason: Hypoglycemia Diltiazem HCl (Cardizem Cd) 360 mg PO [facility] Last Admin: 10/09/17 20:09 Dose: 360 mg Fentanyl (Sublimaze) 25 mcg SLOW IVP Q4H PRN PRN Reason: Pain Last Admin: 10/08/17 12:35 Dose: 25 mcg Fluoxetine HCl (Prozac) 20 mg PO DAILY [facility] Last Admin: 10/10/17 08:50 Dose: 20 mg Gabapentin (Neurontin) 100 mg PO TID [facility] Last Admin: 10/10/17 08:52 Dose: 100 mg Glucagon (Glucagon) 1 mg IM PRN PRN PRN Reason: Hypoglycemia Guaifenesin (Robitussin Sf) 200 mg PO Q4H PRN PRN Reason: Cough Hydralazine HCl (Apresoline) 10 mg SLOW IVP Q4H PRN PRN Reason: Systolic BP > 180 Levofloxacin 500 mg/ Device 100 mls @ 100 mls/hr IVPB 1000 [facility] Last Admin: 10/10/17 09:00 Dose: 100 mls Dextrose/Water (D5w) 1,000 mls @ 0 mls/hr IV .Q0M PRN; As Directed PRN Reason: Hypoglycemia Metronidazole 500 mg/ Device 100 mls @ 100 mls/hr IVPB 0400,1200,2000 [facility] Last Admin: 10/10/17 04:19 Dose: 100 mls Insulin Human Lispro (Humalog) 0 units SC .MODERATE SLIDING SC PRN PRN Reason: Moderate Correctional Scale Insulin Human Lispro (Humalog) 0 units SC .BEDTIME SLIDING SC PRN PRN Reason: Bedtime Correctional Scale Loratadine (Claritin) 10 mg PO DAILYPRN PRN PRN Reason: Sinus Symptoms Magnesium Hydroxide (Milk Of Magnesium) 30 ml PO DAILYPRN PRN PRN Reason: Constipation Meclizine HCl (Antivert) 25 mg PO [facility] Last Admin: 10/09/17 20:09 Dose: 25 mg Mineral Oil/White Petrolatum (Eucerin Cream) 0 gm TOP BIDPRN PRN PRN Reason: Dry Skin Mometasone Furoate/Formoterol Fumar (Dulera 200 Mcg/5 Mcg Inhaler) 1 puff INH BID PRN PRN Reason: SOB &/or Wheezing Ondansetron HCl (Zofran Odt) 4 mg PO Q6H PRN PRN Reason: Nausea/Vomiting Ondansetron HCl (Zofran) 4 mg IVP Q6H PRN PRN Reason: Nausea/Vomiting Last Admin: 10/08/17 12:35 Dose: 4 mg Pantoprazole Sodium (Protonix) 40 mg IVP DAILY [facility] Last Admin: 10/10/17 08:51 Dose: 40 mg Phenol (Chloraseptic [place] 180 Ml Bot) 0 ml PO PRN PRN PRN Reason: Sore Throat Pravastatin Sodium (Pravachol) 40 mg PO 1500 [facility] Last Admin: 10/09/17 15:34 Dose: 40 mg Quinapril HCl (Accupril) 40 mg PO DAILY [facility] Last Admin: 10/10/17 08:52 Dose: 40 mg Saccharomyces Boulardii (Florastor) 250 mg PO DAILY [facility] Last Admin: 10/10/17 08:50 Dose: 250 mg Senna (Senokot) 2 tab PO HSPRN PRN PRN Reason: Constipation Sodium Chloride ([place] Nasal [place] 0.65%) 0 ml EA NARE QIDPRN PRN PRN Reason: Nasal Congestion Sodium Chloride (Flush - Normal Saline) 10 ml IVF Q12HR [facility] Last Admin: 10/10/17 08:52 Dose: 10 ml Sodium Chloride (Flush - Normal Saline) 10 ml IVF PRN PRN PRN Reason: Saline Flush Last Admin: 10/10/17 04:19 Dose: 10 ml Zolpidem Tartrate (Ambien) 5 mg PO HSPRN PRN PRN Reason: Insomnia
--- NOTE | 2017-10-10 11:39 | DIS ---
PRIMARY CARE PHYSICIAN: Dr. Boy Quintanilla DATE OF ADMISSION: 10/07/2017 DATE OF DISCHARGE: 10/10/2017 DISCHARGE DISPOSITION: Home. PRIMARY DISCHARGE DIAGNOSES: 1. Acute ischemic colitis. 2. Hematochezia due to problem #1. SECONDARY DISCHARGE DIAGNOSES: Hypertension, gastroesophageal reflux disease, dyslipidemia, diabetes type 2, chronic obstructive pulmonary disease, chronic respiratory failure on home oxygen, chronic n ormocytic normochromic anemia. PRIMARY PROCEDURE/OPERATION: None. RADIOLOGICAL INVESTIGATION: CT of the abdomen and pelvis which was done at the [place] [facility] which showed findings suggestive of colitis. SIGNIFICANT LABORATORY DATA: WBC 7.7, hemoglobin 9.5, platelet 197, sodium 138, potassium 3.8, BUN 7 , creatinine 0.61, calcium 8.2. LFTs normal. Stool for infection workup came back negative. DISCHARGE MEDICATIONS: Levaquin 500 mg p.o. daily for 5 days, Flagyl 500 mg p.o. t.i.d. for 5 days. Continue following medications; Norvasc 2.5 mg p.o. daily, aspirin 81 mg p.o. at bedtime, Symbicort 1 puff inhalation b.i.d., Cardizem-CD 360 mg p.o. at bedtime, Nexium 40 mg p.o. daily, Prozac 20 mg p .o. daily, gabapentin 100 mg p.o. t.i.d., cetirizine 5 mg p.o. daily, Antivert 25 mg p.o. at bedtime, pravastatin 40 mg p.o. daily, quinapril 40 mg p.o. daily, Januvia 50 mg p.o. daily. CONTRAINDICATIONS: None. CODE STATUS: FULL CODE. INPATIENT CONSULTANTS: Dr. Obdulio Muñoz was consulted while in hospital. He recommended outpatient colonoscopy. TEST RESULTS PENDING ON DISCHARGE: None. ALLERGIES: METFORMIN and CODEINE. DISCHARGE PLAN: Post hospital, the patient will follow up with primary care physician, Dr. Muñoz as instructed. HOSPITAL COURSE: A 72-year-old female with the above-mentioned medical problems who initially went t [facility] with the complaint of hematochezia. She was evaluated with a CT of the abdom en and pelvis and the patient was found with colitis. She was instructed to follow up with the [facility] care physician and edge bander operator. The patient was having more and more hematochezia and that is why she called primary care physician who advised her to go to emergency room for evaluation. In the emergency room, the patient was uncomfortable with abdominal discomfort and hematochezia and t hat is why we kept this patient in hospital for admission. We were suspecting ischemic colitis, but we also ruled out infectious etiology. Her stool study for infection was negative. We consulted gas troenterologist and they also agreed with the diagnosis of acute ischemic colitis. The patient's sto ol workup came back negative and they recommended outpatient colonoscopy after discharge. Her pain w as controlled. She was given empiric Levaquin and Flagyl while in hospital. She was given IV fluid. Upon improvement, we started clear liquid diet and advance to regular diet. Dietary instruction gi william to the patient. At this point, the patient is ambulatory, tolerating p.o. well, and without any abdominal discomfort. The patient is seen and examined at bedside today. Please see my progress note from today for furt her detail. We are advancing diet today and if patient tolerating her diet then patient possibly can be discharged later on today.
[2017-10-10 11:40] VITALS: BP 147/68; TEMP 97.8
[2017-10-10] MEDS: Pravastatin Sodium 40 MG TAB PO SCH (15:25)
[2017-10-10] MEDS: Alogliptin 25 MG TAB PO SCH (15:26)
== END 2017-10-10 16:32 | disposition home or self-care (01) | DRG 394 ==
LOC: ERS 09:52 → T4-B 12:05
PROVIDERS: ADMIT Internal Medicine; ATTEND Internal Medicine
DX: K55.039 Acute (reversible) ischemia of large intestine, extent unspecified (principal); K92.1 Melena; J96.11 Chronic respiratory failure with hypoxia; I10 Essential (primary) hypertension; K21.9 Gastro-esophageal reflux disease without esophagitis; E78.5 Hyperlipidemia, unspecified; E11.42 Type 2 diabetes mellitus with diabetic polyneuropathy; J44.9 Chronic obstructive pulmonary disease, unspecified; D64.9 Anemia, unspecified; F17.290 Nicotine dependence, other tobacco product, uncomplicated; F41.9 Anxiety disorder, unspecified; F32.9 Major depressive disorder, single episode, unspecified; Z86.010 Personal history of colon polyps; Z86.11 Personal history of tuberculosis; Z79.84 Long term (current) use of oral hypoglycemic drugs; Z99.81 Dependence on supplemental oxygen
CPT/HCPCS: 36415; 36416; 80053; 85025; 87045; 87046; 87324; 87328; 87329; 87449; 87899; 96365; A4216; C9113; J1956; J2405; J3010

== ENCOUNTER 2017-11-08 10:52 | Day surgery (SDC) | payer MEDICARE, MEDICAID ==
[2017-11-07 11:37] VITALS: BMI 25.6
[~2017-11-08 10:52] MED LIST: Lidocaine 1% PF 5 ML VIAL ONE; PROPOFOL 200 MG/20 ML VIAL ONE
[2017-11-08] MEDS ORDERED: Fleet Enema 133 ML BOT FS SCH (12:45)
--- NOTE | 2017-11-08 22:01 | OP ---
DATE OF PROCEDURE: 11/08/2017 PROCEDURE: Colonoscopy with snare polypectomy. PREOPERATIVE DIAGNOSIS: Recent bloody diarrhea and ischemic colitis. PROCEDURE IN DETAIL: Informed consent was obtained from the patient. She was sedated with total int ravenous anesthesia. The rectal exam was performed and was normal. The colonoscope was advanced to the terminal ileum without difficulty. The mucosa of the terminal ileum was normal. There was moder ate to severe sigmoid diverticulosis. A 9 mm pedunculated polyp was removed from the sigmoid colon b y snare cautery polypectomy. Two 5-mm hyperplastic appearing polyps were removed from the rectum by cold snare polypectomy. Retroflexed views in the rectum were unremarkable. There was a somewhat fix ed flexure at the distal sigmoid. Preparation quality was good. IMPRESSION: 1. A 9 mm pedunculated sigmoid polyp removed by hot snare. 2. Two 5-mm polyps removed from the rectum by cold snare. 3. Sigmoid diverticulosis. 4. Otherwise normal colonoscopy to the terminal ileum. The ischemic colitis is healed. RECOMMENDATIONS: Await histopathology. Timing of surveillance colonoscopy will be based on the biop sy results.
== END 2017-11-08 16:03 | disposition home or self-care (01) ==
LOC: SDC 10:52
PROVIDERS: ATTEND Internal Medicine Gastroenterology
PROC: 0DBP8ZX Excision of Rectum, Via Natural or Artificial Opening Endoscopic, Diagnostic (ICD-10-PCS; principal; 2017-11-08)
PROC: 0DBN8ZX Excision of Sigmoid Colon, Via Natural or Artificial Opening Endoscopic, Diagnostic (ICD-10-PCS; 2017-11-08)
DX: K92.2 Gastrointestinal hemorrhage, unspecified (principal); R19.7 Diarrhea, unspecified; D12.5 Benign neoplasm of sigmoid colon; D12.8 Benign neoplasm of rectum; K57.30 Diverticulosis of large intestine without perforation or abscess without bleeding; E78.5 Hyperlipidemia, unspecified; I10 Essential (primary) hypertension; Z86.010 Personal history of colon polyps; Z79.82 Long term (current) use of aspirin; Z79.84 Long term (current) use of oral hypoglycemic drugs; Z79.899 Other long term (current) drug therapy; Z88.5 Allergy status to narcotic agent; Z88.8 Allergy status to other drugs, medicaments and biological substances
CPT/HCPCS: 36416; 88305; J2001; J2704

== ENCOUNTER 2017-12-16 12:20 | Outpatient (CLI) | payer MEDICARE, MEDICAID ==
--- NOTE | 2017-12-16 14:10 | RAD ---
TWO VIEWS OF THE LEFT HIP: COMPARISON: None. HISTORY: Left hip and groin pain for a week. FINDINGS: Two views of the left hip show no evidence of acute fracture or dislocation. No degenerative changes are seen. IMPRESSION: Unremarkable exam. POS: [facility]
== END 2017-12-16 12:21 | disposition home or self-care (01) ==
LOC: SCSRAD 12:20
PROVIDERS: ATTEND Family Medicine
DX: R10.32 Left lower quadrant pain (principal)

== ENCOUNTER 2018-03-30 23:07 | Observation (INO) | payer MEDICARE, MEDICAID ==
[2018-03-30] MEDS ORDERED: methylPREDNISolone Sod Succ/PF 125 MG/2 ML VIAL ONE (23:22)
[2018-03-30] MEDS ORDERED: Water For Inject, Bacteriostat 30 ML ONE (23:22)
--- NOTE | 2018-03-30 23:29 | RAD ---
SINGLE VIEW OF THE CHEST: 03/30/18 COMPARISON: 09/16/12 HISTORY: Shortness of breath. FINDINGS: Single view of the chest shows a normal sized cardiomediastinal silhouette with atherosclerotic calci fications in the aorta. Increased interstitial lung markings are present. There is no evidence of con solidation, mass, or pleural effusion. IMPRESSION: No evidence of acute cardiopulmonary disease. POS: [facility]
[2018-03-30 23:33] LABS: #Basophils 0.1 thou/uL (0.0-0.2); #Eosinphils 0.3 thou/uL (0.0-0.7); #Lymphocytes 1.3 thou/uL (1.20-3.40); #Monocytes 0.7 thou/uL (0.11-0.59); #Neutrophils 4.9 thou/uL (1.40-6.50); %Eosinophils 3.6 % (0.0-10.0); %Lymphocytes 18.4 % (21.0-51.0); %Monocytes 10.2 % (0.0-10.0); %Neutrophils 66.8 % (42.0-75.0); Hemoglobin 11.9 g/dL (12.0-16.0); Mean Corpuscular HGB CONC 32.6 g/dL (32.0-36.0); Mean Corpuscular Hemoglobin 29.2 pg (27.0-31.0); Mean Corpuscular Volume 89.6 fL (78.0-98.0); Mean Platelet Volume 7.2 fL (7.4-10.4); Platelet Count 267 thou/uL (130-400); RBC Distribution Width 13.4 % (11.5-14.5); Red Blood Cell (RBC) Count 4.09 mill/uL (4.20-5.40); White Blood Cell (WBC) Count 7.3 thou/uL (4.8-10.8)
[2018-03-30 23:55] LABS: ALT (SGPT) 14 U/L (8-55); AST (SGOT) 19 U/L (5-34); Albumin 4.2 g/dL (3.4-4.8); Alkaline Phosphatase 85 U/L (40-150); Anion Gap 15 mmol/L (10-20); BUN (Urea Nitrogen) 16 mg/dL (9.8-20.1); Bilirubin, Total 0.2 mg/dL (0.2-1.2); Calc. Creatinine Clearance 0 mL/min (70-130); Calcium 9.4 mg/dL (7.8-10.44); Carbon Dioxide 24 mmol/L (23-31); Chloride 99 mmol/L (98-107); Estimated GFR-MDRD 84; Globulin 3.4 g/dL (2.4-3.5); Glucose 137 mg/dL (83-110); Potassium 4.6 mmol/L (3.5-5.1); Protein, Total 7.6 g/dL (6.0-8.3); Sodium 133 mmol/L (136-145)
[2018-03-31 00:04] LABS: Actual Bicarbonate (HCO3a) 24.2 mEq/L (22-28); Base Excess (BEa) -0.7 mEq/L (-2.0 to +3.0); CO2 Tension 40.7 mmHg (35.0-45.0); Carboxyhemoglobin (COHb) 0.1 gm% (0.0-3.0); Hemoglobin (Hb) 11.8 g/dL (12.0-16.0); O2 Tension (PaO2) 77.6 mmHg (> 70.0); pH, Arterial 7.39 (7.35-7.45)
[2018-03-31 00:05] LABS: ALV-art Gradient 71.165 (0-20); Analyzer IN Cardio ER; Calcium, Ionized 1.13 mmol/L (1.12-1.30); Potassium - ABG Lab 4.24 mmol/L (3.70-5.30); Puncture Site RRA
[2018-03-31 02:50] LABS: Troponin I Less than 0.010 ng/mL (< 0.028)
[2018-03-31 06:04] LABS: Troponin I Less than 0.010 ng/mL (< 0.028)
--- NOTE | 2018-03-31 07:54 | HP ---
CHIEF COMPLAINT: Shortness of breath. HISTORY OF PRESENT ILLNESS: This is a 72-year-old female with past medical history significant for COPD, presenting to our hospital with shortness of breath, which started on the day of admission. The patient states that she always have shortness of breath and some cough. However, her cough has now been progressively getting worse in the past 3 weeks. On the day of admission, the patient states that she was in her daughter's house and she was lying in bed, and she turned and she was not able to really catch her breath. The patient felt that "she was not going to be able to breathe and she felt like she was going to not make it if she does not come to the hospital." The patient decided to tell the daughter, so the daughter can call and bring her to the hospital. The patient also states that she was very exhausted. She was not able to stand on her feet and she also had cough with productive sputum. The patient endorses subjective fevers, shortness of breath, generalized weakness; however, denies any dizziness, headaches, chest pain, palpitations, diarrhea, constipation, abdominal pain, dysuria, hematuria, melena, or hematochezia. Of note, the patient was recently in our hospital and the patient states that she was diagnosed with acute ischemic colitis. REVIEW OF SYSTEMS: Positive for shortness of breath, cough, fevers, chills, generalized weakness. Otherwise as documented in the HPI, all other systems are reviewed and are negative. PAST MEDICAL HISTORY: Hypertension; GERD; hyperlipidemia; diabetes mellitus, type 2; COPD, on home oxygen; and normocytic anemia. FAMILY HISTORY: Reviewed and noncontributory to this visit. PAST SURGICAL HISTORY: Laparotomy, hysterectomy, back surgery for ruptured disk, appendectomy, and tonsillectomy. PSYCHIATRIC HISTORY: Anxiety and depression. SOCIAL HISTORY: The patient is a smoker. The patient states that she last smoked a year ago. The patient states that she was smoking half a pack per day for 50 years. The patient lives at home with daughter. The patient denies any alcohol use or illicit drug use. ALLERGIES: THE PATIENT IS ALLERGIC TO CODEINE. CURRENT MEDICATIONS: The patient is on; 1. Nexium. 2. Prozac. 3. Quinapril. 4. Amlodipine. 5. Levocetirizine. 6. Meclizine. 7. Januvia. 8. Amlodipine. 9. Pravastatin. 10. Gabapentin. 11. Aspirin. 12. Cardizem. PHYSICAL EXAMINATION: GENERAL: The patient is lying on her right side, have mild distress. The patient states that she is wheezing. The patient is able to speak in full sentences. However, the patient appears her stated age. Alert and oriented x3. HEENT: Normocephalic, atraumatic. Pupils are equally round and reactive to light. Extraocular movements are intact. No scleral icterus. No conjunctival pallor. Mucous membranes are dry. NECK: Trachea is midline. Full range of motion. No JVDs. The patient has no cervical lymphadenopathies. Supple. LUNGS: The patient has wheezes and crackles bilaterally at the anterior and posterior lung mcgarry. CARDIAC: Positive S1 and S2. Regular rate and rhythm. No murmurs, no gallops, no rubs are appreciated. ABDOMEN: Soft, nontender, and nondistended. Positive bowel sounds in all quadrants. EXTREMITIES: The patient has 5/5 upper extremity strength and 5/5 lower extremity strength. Good pulses bilaterally at the upper and lower extremities and no edema noted. NEUROLOGIC: Cranial nerves II through XII grossly intact. No neurologic deficits noted. SKIN: Warm, dry, and intact. PSYCH: Normal affect. Alert and oriented x3. LABORATORY DATA: 1. WBC is 7.3, hemoglobin is 11.9, hematocrit is 36.6, and platelet count is 267. 2. ABGs; pH is 7.39, pCO2 is 40.7, and pO2 is 77.6. 3. Sodium is 133, potassium is 4.6, chloride is 99, carbon dioxide of 24, anion gap of 15, BUN is 16, creatinine is 0.69, and glucose is 137. 4. Troponins are less than 0.010 x3. IMAGING DATA: Chest x-ray shows no evidence of acute cardiopulmonary disease. ASSESSMENT AND PLAN: This is a 72-year-old female, being admitted for; 1. Hypoxemic respiratory failure due to chronic obstructive pulmonary disease exacerbation. At this point, the patient has been started on DuoNeb and steroids. We will continue the patient on antibiotics. We will monitor the patient closely. We will follow up on morning labs. We will give p.r.n. pain medications and also medications for fever. 2. Hypertension. We will monitor the patient's blood pressure closely and we will administer the patient p.r.n. blood pressure medications to control blood pressures. 3. Diabetes mellitus, type 2. We will continue patient on insulin sliding scale. 4. Hyperlipidemia. We will continue the patient on home medication. 5. History of gastroesophageal reflux disease. We will continue patient with proton pump inhibitors. 6. Deep vein thrombosis and gastrointestinal prophylaxis. Job ID: [id number]
[2018-03-31] MEDS ORDERED: Albuterol Sulfate 2.5 mg/3 ml Neb NEB PRN (10:24)
[2018-03-31] MEDS ORDERED: Acetaminophen 325 MG TAB PO PRN (10:24)
[2018-03-31] MEDS ORDERED: Enoxaparin Sodium 40 MG/0.4 ML SYRINGE SC SCH (10:24)
[2018-03-31] MEDS ORDERED: Ondansetron ODT 4 MG TAB PO PRN (10:24)
[2018-03-31] MEDS ORDERED: Ondansetron PF 4 MG/2 ML Vial IVP PRN (10:24)
[2018-03-31] MEDS ORDERED: Dextrose 50% Abboject 50 ML SYRINGE SLOW IVP PRN (10:24)
[2018-03-31] MEDS ORDERED: HumaLOG 300 UNITS/3 ML VIAL SC PRN (10:24)
[2018-03-31] MEDS ORDERED: Acetaminophen 650 MG Suppository PR PRN (10:24)
[2018-03-31] MEDS ORDERED: Dextrose 5% in Water 1,000 ML IV PRN (10:24)
[2018-03-31] MEDS ORDERED: Enoxaparin Sodium 40 MG/0.4 ML SYRINGE ONE (10:51)
[2018-03-31] MEDS ORDERED: Insulin Regular 300 UNITS/3 ML VIAL ONE (10:51)
[2018-03-31] MEDS ORDERED: HumaLOG 300 UNITS/3 ML VIAL ONE (10:59)
[2018-03-31 11:43] LABS: Bilirubin Negative (Negative); Blood, Urine Negative (Negative); Clarity CLEAR (Clear); Glucose, Urine (Dipstick) >=1000 mg/dL (Negative); Leukocyte Negative (Negative); Nitrite Negative (Negative); Protein, Urine (Dipstick) Negative (Neg-Trace); Specific Gravity, Urine 1.021 (1.002-1.036); Urobilinogen 0.2 mg/dL (0.2-1.0)
[2018-03-31] MEDS ORDERED: Meclizine HCl 25 MG TAB PO PRN (11:54)
[2018-03-31] MEDS ORDERED: Gabapentin 300 MG CAP PO SCH (15:00)
[2018-03-31] MEDS ORDERED: methylPREDNISolone Sod Succ 40 MG VIAL ONE (15:16)
[2018-03-31] MEDS ORDERED: Mometasone/Formoterol 120 PUFF INHALER INH SCH (18:30)
[2018-03-31] MEDS ORDERED: Aspirin 81 mg Enteric Coated Tablet PO SCH (21:00)
[2018-04-01] MEDS ORDERED: Enoxaparin Sodium 40 MG/0.4 ML SYRINGE SC SCH (09:00)
[2018-04-01] MEDS ORDERED: PARoxetine 20 MG TAB PO SCH (09:00)
[2018-04-01] MEDS ORDERED: Amlodipine 5 MG TAB PO SCH (09:00)
[2018-04-01] MEDS ORDERED: Loratadine 10 MG TAB PO SCH (09:00)
[2018-04-01] MEDS ORDERED: Non-Formulary Item 1 EACH (Budesonide-Formoterol [Symbicort 160-4.5] 1 PUFF) INH SCH (09:00)
[2018-04-01] MEDS ORDERED: Atorvastatin Calcium 10 MG TAB PO SCH (09:00)
[2018-04-01] MEDS ORDERED: Non-Formulary Item 1 EACH (Sitagliptin Phosphate [Januvia] 50 MG) PO SCH (09:00)
[2018-04-01] MEDS ORDERED: Alogliptin 6.25 MG TAB PO SCH (09:00)
--- NOTE | 2018-04-15 23:28 | EKG ---
Test Reason : SEPSIS ALERT Blood Pressure : / mmHG Vent. Rate : 083 BPM Atrial Rate : 083 BPM P-R Int : 150 ms QRS Dur : 074 ms QT Int : 368 ms P-R-T Axes : 072 -17 049 degrees QTc Int : 432 ms Normal sinus rhythm with sinus arrhythmia Septal infarct , age undetermined Abnormal ECG Confirmed by VELIA ZHAO DO ([id number]), communications editor LAILA GASTON ([id number]) on 04/15/2018 11:28:22 PM Referred By: Confirmed By:VELIA ZHAO DO
== END 2018-03-31 15:54 | disposition home or self-care (01) ==
LOC: ERS 23:07 → ERHOLD 03-31 01:15
PROVIDERS: ADMIT Internal Medicine; ATTEND Internal Medicine
DX: J44.1 Chronic obstructive pulmonary disease with (acute) exacerbation (principal); J96.91 Respiratory failure, unspecified with hypoxia; I10 Essential (primary) hypertension; E78.5 Hyperlipidemia, unspecified; E11.9 Type 2 diabetes mellitus without complications; D64.9 Anemia, unspecified; K21.9 Gastro-esophageal reflux disease without esophagitis; F41.9 Anxiety disorder, unspecified; F32.9 Major depressive disorder, single episode, unspecified; F17.210 Nicotine dependence, cigarettes, uncomplicated; Z90.710 Acquired absence of both cervix and uterus; Z90.49 Acquired absence of other specified parts of digestive tract; Z90.89 Acquired absence of other organs; Z88.5 Allergy status to narcotic agent; Z88.8 Allergy status to other drugs, medicaments and biological substances; Z79.82 Long term (current) use of aspirin; Z79.52 Long term (current) use of systemic steroids; Z79.2 Long term (current) use of antibiotics; Z79.899 Other long term (current) drug therapy; Z98.890 Other specified postprocedural states
CPT/HCPCS: 71045; 80053; 81003; 82805; 82962; 83605; 83880; 84484 ×3; 85025; 87040; 87086; 87804 ×2; 93005; 94640 ×2; 96365; 96366; 96375; 96376; 99285; G0378; 36415; 36416; J1650; J1815; J1956; J2920; J2930; J7620

== ENCOUNTER 2018-09-09 13:43 | Inpatient (IN) | payer MEDICARE, MEDICAID ==
[2018-09-09] MEDS ORDERED: methylPREDNISolone Sod Succ/PF 125 MG/2 ML VIAL ONE (13:56)
[2018-09-09] MEDS ORDERED: Albuterol Sulfate 2.5 mg/0.5 ml Neb ONE ×2 (13:58→14:43)
--- NOTE | 2018-09-09 14:30 | RAD ---
XR Chest 1 View Portable History: [Cough] Comparison: Radiograph March 2018 Findings: Lungs are hyperinflated. Abnormal increased initial markings throughout the lungs probably of the lower lobes. No pneumothorax. No effusion. Heart size mildly enlarged. No acute osseous normality. Impression: Findings concerning for chronic interstitial lung disease such as pulmonary fibrosis.
[2018-09-09 14:32] LABS: #Basophils 0.1 thou/uL (0.0-0.2); #Eosinphils 0.1 thou/uL (0.0-0.7); #Lymphocytes 1.2 thou/uL (1.20-3.40); #Monocytes 1.2 thou/uL (0.11-0.59); %Basophils 0.5 % (0.0-1.0); %Eosinophils 0.9 % (0.0-10.0); %Lymphocytes 12.9 % (21.0-51.0); %Monocytes 12.2 % (0.0-10.0); %Neutrophils 73.5 % (42.0-75.0); Hemoglobin 10.1 g/dL (12.0-16.0); Mean Corpuscular HGB CONC 33.8 g/dL (32.0-36.0); Mean Corpuscular Hemoglobin 28.6 pg (27.0-31.0); Mean Corpuscular Volume 84.4 fL (78.0-98.0); Mean Platelet Volume 8.2 fL (7.4-10.4); Platelet Count 250 thou/uL (130-400); RBC Distribution Width 14.4 % (11.5-14.5); Red Blood Cell (RBC) Count 3.55 mill/uL (4.20-5.40); White Blood Cell (WBC) Count 9.5 thou/uL (4.8-10.8)
[2018-09-09 14:54] LABS: ALT (SGPT) 13 U/L (8-55); AST (SGOT) 17 U/L (5-34); Alkaline Phosphatase 76 U/L (40-150); Anion Gap 15 mmol/L (10-20); BUN (Urea Nitrogen) 14 mg/dL (9.8-20.1); Bilirubin, Total 0.3 mg/dL (0.2-1.2); Calc. Creatinine Clearance 0 mL/min (70-130); Calcium 9.5 mg/dL (7.8-10.44); Carbon Dioxide 24 mmol/L (23-31); Chloride 98 mmol/L (98-107); Estimated GFR-MDRD 87; Globulin 3.3 g/dL (2.4-3.5); Glucose 118 mg/dL (83-110); Lipase 9 U/L (8-78); Potassium 4.1 mmol/L (3.5-5.1); Protein, Total 7.3 g/dL (6.0-8.3); Sodium 133 mmol/L (136-145)
[2018-09-09] MEDS ORDERED: HumaLOG 300 UNITS/3 ML VIAL SC PRN (18:18)
[2018-09-09] MEDS ORDERED: Ondansetron PF 4 MG/2 ML Vial IVP PRN (18:18)
[2018-09-09] MEDS ORDERED: Ondansetron ODT 4 MG TAB PO PRN (18:18)
[2018-09-09] MEDS ORDERED: Dextrose 50% Abboject 50 ML SYRINGE SLOW IVP PRN (18:18)
[2018-09-09] MEDS ORDERED: Acetaminophen 325 MG TAB PO PRN (18:18)
[2018-09-09] MEDS ORDERED: Dextrose 5% in Water 1,000 ML IV PRN (18:18)
--- NOTE | 2018-09-09 19:05 | HP ---
CHIEF COMPLAINT: "I could not breathe." PRIMARY CARE PROVIDER: Dr. Quintanilla. HISTORY OF PRESENT ILLNESS: This is a 73-year-old female with known COPD and history of exacerbation, hospitalized here in March 2016, hypertension, dyslipidemia, diabetes mellitus type 2; chronic respiratory failure, on home oxygen at 2 L; chronic anemia, who presented to the emergency room with difficulty breathing. The patient and her daughter state the onset was about 2 days ago. She attempted to be seen by her primary care provider, however, no appointments were available until Tuesday. She notes headache, fever to 101, chest congestion, weakness, productive cough that is changed to a dark green sputum with a small amount of blood, and difficulty breathing. Due to the rapid onset of her symptoms and progressive worsening, she was brought to the emergency room. The patient and her daughter also note that today her temp has been 99 degrees, her blood sugars have been over 200, she also has chest heaviness in addition to the symptoms above. The patient reports that her breathing is usually fairly 'normal' and her nebulizer used is once a day. She did increase to 3 times per day when her breathing changed without any signficant difference. She denies sick contacts, unusual exposures, no treatments at home that were significant to change her symptoms. She denies any nausea, vomiting, or abdominal pain. In the emergency room, the patient was found to have COPD exacerbation and treated with DuoNeb x3, albuterol x2, methylprednisolone 125 mg, Levaquin 750 mg IV, and normal saline 500 mL and hospitalist called for admission. ALLERGIES: CODEINE. PAST MEDICAL HISTORY: 1. Hypertension. 2. GERD. 3. Dyslipidemia. 4. Diabetes mellitus type 2. 5. COPD. 6. Chronic respiratory failure, on home oxygen 2 L continuous and when active, increases to 3 L/minutes. 7. Normocytic anemia. 8. Restless legs. 9. Mood disorder. PAST SURGICAL HISTORY: 1. Hysterectomy. 2. Back surgery for ruptured disk. 3. Appendectomy. 4. Tonsillectomy. 5. Cataract removal, OU. FAMILY HISTORY: Significant for mother who had a stroke and father who had metastatic lung cancer. SOCIAL HISTORY: The patient quit tobacco 2 years ago, she had smoked for 50 years. She lives with her daughter. Denies any alcohol use. Her daughterShanon is her surrogate decision maker and the patient reports that she is a do not resuscitate, which her daughter supports. REVIEW OF SYSTEMS: Negative for nausea, vomiting, or abdominal pain. Positive for asthma as noted above. All remaining review of systems reviewed and negative. MEDICATIONS: 1. Nexium 40 mg daily 2. Quinapril 40 mg daily 3. Levocetirizine 5 mg daily 4. Meclizine 25 mg HS 5. Pravastatin 40 mg HS 6. Gabapentin 300 mg TID 7. Aspirin 81 mg daily 8. Symbicort 160/4.5 - 2 puffs BID - uses inconsistently 9. Taztia XT - 180 mg - 2 tabs HS 10. Amlodipine 2.5 mg HS 11. Januvia 100 mg HS 12. Glucotrol XL 5 mg daily 13. Fluoxetine 20 mg daily PHYSICAL EXAMINATION: VITAL SIGNS: Blood pressure 172/55, pulse 93, respirations 24, sats 94% on 2 L. GENERAL: The patient is awake, alert, responsive. She is speaking in shorter probably 7-8 word phrases. She is not in apparent distress. HEENT: Her tympanic membranes are translucent. Oral mucosa is pink and moist. NECK: Supple, . LYMPHATICS: No palpable cervical or supraclavicular lymphadenopathy. LUNGS: She has wheezing throughout. Fair air movement. No audible rales or rhonchi. HEART: Normal S1, S2. Regular rate and rhythm. No significant murmur. ABDOMEN: Soft with present bowel sounds. Nontender. Nondistended. EXTREMITIES: No pitting edema, clubbing, or cyanosis. SKIN: No visible rashes. VASCULAR: 2+ dorsalis pedis pulses. NEURO: No focal deficits. PSYCH: Euthymic, alert, oriented x4. NEURO: The patient does have tremor in both hands that the patient and her daughter report secondary to this illness. LABORATORY DATA: Personally reviewed. CBC; 9.5, 10.1, 29.9, 250. Chemistry; 133, 4.1, 98, 24, 14, 0.67, 118. LFTs negative. Troponin negative. BNP 86.5. Chest x-ray is personally reviewed, which shows findings concerning for chronic interstitial lung disease such as pulmonary fibrosis with hyperinflated lungs. IMPRESSION: 1. Acute on chronic hypoxic respiratory failure. 2. Chronic obstructive pulmonary disease with exacerbation and possible secondary diagnosis of pulmonary fibrosis. 3. Diabetes mellitus type 2. 4. Hypertension, uncontrolled. 5. Dyslipidemia. 6. Restless legs. 7. Mood disorder, uncharacterized. PLAN: 1. Admission to the hospital. 2. Nebulizers, we will schedule DuoNebs every 4 hours, and albuterol every 2 hours in between. Continuing the Solu-Medrol IV; Brovana and Pulmicort twice daily, nebulizer treatments, and antibiotics. Monitor amount of hematuria. 3. Pulmonology consultation given significant sx and possible secondary dx of pulmonary fibrosis. 4. Oxygen supplementation. 5. IV fluids until the patient is regularly taking p.o. 6. Continuing her home medication with hold parameters on her antihypertensives. 7. Insulin by sliding scale. Monitor blood sugars and add back januvia and glucotrol as pt is taking adequate PO. 8. Continuing her fluoxetine, low-dose aspirin, PPI. 9. We will change her home medication of meclizine to as needed. 10. DVT prophylaxis with pneumatic compression devices. 11. GI prophylaxis. The patient is on a PPI, we will continue that. 12. Code status is do not attempt resuscitation. This is per the patient and confirmed with the patient's daughter, Shanon who is her surrogate decision maker. 13. The patient is at high risk given age comorbidities and current presentation. 14. Reviewed the plan of care with the patient and her daughter. No questions or further needs at the end of evaluation. Job ID: [id number] MTDD
[2018-09-09 19:17] VITALS: BMI 27.1
[2018-09-09] MEDS: NS 0.9% w/ 20 MEQ KCL 1,000 ML/1,000 ML BAG IV SCH (20:49)
[2018-09-09] MEDS: Amlodipine 5 MG TAB PO SCH (21:56)
[2018-09-09] MEDS: Pravastatin Sodium 40 MG TAB PO SCH (21:56)
[2018-09-09] MEDS: Gabapentin 300 MG CAP PO SCH (21:58)
[2018-09-09] MEDS: HumaLOG 300 UNITS/3 ML VIAL SC PRN (22:08)
[2018-09-09] MEDS ORDERED: Arformoterol 15 MCG/2 ML NEB ONE (22:40)
[2018-09-09] MEDS ORDERED: Budesonide 0.5 MG/2 ML NEB ONE (22:40)
[2018-09-09] MEDS: Budesonide 0.5 MG/2 ML NEB INH SCH (22:50)
[2018-09-09] MEDS: Arformoterol 15 MCG/2 ML NEB NEB SCH (22:50)
[2018-09-09] MEDS: Albuterol Sulfate 2.5 mg/3 ml Neb NEB SCH ×3 (22:51→22:59)
[2018-09-10] MEDS: methylPREDNISolone Sod Succ 40 MG VIAL IVP SCH ×5 (00:06→23:28)
[2018-09-10] MEDS: Albuterol Sulfate 2.5 mg/3 ml Neb NEB SCH ×12 (03:06→20:42)
[2018-09-10] MEDS: NS 0.9% w/ 20 MEQ KCL 1,000 ML/1,000 ML BAG IV SCH (05:18)
[2018-09-10 05:57] LABS: #Lymphocytes 0.7 thou/uL (1.20-3.40); #Monocytes 0.2 thou/uL (0.11-0.59); #Neutrophils 6.7 thou/uL (1.40-6.50); %Basophils 0.1 % (0.0-1.0); %Eosinophils 0.1 % (0.0-10.0); %Lymphocytes 9.3 % (21.0-51.0); %Monocytes 1.9 % (0.0-10.0); %Neutrophils 88.5 % (42.0-75.0); Mean Corpuscular HGB CONC 31.8 g/dL (32.0-36.0); Mean Corpuscular Hemoglobin 27.3 pg (27.0-31.0); Mean Corpuscular Volume 85.8 fL (78.0-98.0); Mean Platelet Volume 7.8 fL (7.4-10.4); Platelet Count 260 thou/uL (130-400); RBC Distribution Width 14.3 % (11.5-14.5); Red Blood Cell (RBC) Count 3.28 mill/uL (4.20-5.40); White Blood Cell (WBC) Count 7.6 thou/uL (4.8-10.8)
[2018-09-10 06:24] LABS: Anion Gap 15 mmol/L (10-20); BUN (Urea Nitrogen) 11 mg/dL (9.8-20.1); Calc. Creatinine Clearance 107 mL/min (70-130); Carbon Dioxide 22 mmol/L (23-31); Chloride 101 mmol/L (98-107); Estimated GFR-MDRD 85; Glucose 282 mg/dL (83-110); Potassium 4.4 mmol/L (3.5-5.1); Sodium 134 mmol/L (136-145)
[2018-09-10] MEDS: Arformoterol 15 MCG/2 ML NEB NEB SCH ×2 (07:36→18:16)
[2018-09-10] MEDS: Budesonide 0.5 MG/2 ML NEB INH SCH ×2 (07:39→18:15)
[2018-09-10] MEDS: Gabapentin 300 MG CAP PO SCH ×3 (08:21→20:52)
[2018-09-10] MEDS: Aspirin 81 mg Enteric Coated Tablet PO SCH (08:23)
[2018-09-10] MEDS: FLUoxetine HCl 20 MG CAP PO SCH (08:23)
[2018-09-10] MEDS: Enoxaparin Sodium 40 MG/0.4 ML SYRINGE SC SCH (08:25)
--- NOTE | 2018-09-10 11:35 | PDOC.PN ---
- Subjective Encounter Start Date: 09/10/18 (f/u COPD exacerbation) Encounter Start Time: 11:33 Subjective: Pt continues to feel short of breath with activity. Denies any new sx. -: denies n/v/abd pain - Objective Resuscitation Status - Order Detail: 09/09/18 18:18 Resuscitation Status Routine Resuscitation Status: DNAR: NO Resuscitation Discussed with: by patient and confirmed with daughter Shanon in the room Vital Signs & Weight: Vital Signs (12 hours) Temp Pulse Resp BP BP Pulse Ox 09/10/18 10:15 104 H 20 96 09/10/18 08:25 152/54 H 09/10/18 08:00 100 09/10/18 07:45 97.8 F 102 H 20 152/54 H 100 09/10/18 07:36 94 18 98 09/10/18 04:00 97.6 F 96 20 144/61 H 95 09/10/18 03:54 98 09/10/18 00:00 97.9 F 92 18 149/53 H 96 Weight Weight 200 lb 6 oz I&O: 09/09/18 09/10/18 09/11/18 06:59 06:59 06:59 Intake Total 1860 Output Total 750 Balance 1110 Result Diagrams: 09/10/18 05:32 09/10/18 05:32 Additional Labs: Accuchecks 09/10/18 09/09/18 05:02 20:33 POC Glucose 273 H 304 H Phys Exam - Physical Examination Constitutional: NAD Respiratory: no rales, no rhonchi wheezing and improved air movement today Cardiovascular: RRR, no significant murmur Gastrointestinal: soft, non-tender, no distention, positive bowel sounds Musculoskeletal: no edema Neurological: non-focal some tremor or hands/arms Dx/Plan (1) Acute and chronic respiratory failure with hypoxia Code(s): J96.21 - ACUTE AND CHRONIC RESPIRATORY FAILURE WITH HYPOXIA Status: Acute (2) COPD with exacerbation Code(s): J44.1 - CHRONIC OBSTRUCTIVE PULMONARY DISEASE W (ACUTE) EXACERBATION Status: Acute (3) Diabetes mellitus Code(s): E11.9 - TYPE 2 DIABETES MELLITUS WITHOUT COMPLICATIONS Status: Chronic Qualifiers: Diabetes mellitus type: type 2 Diabetes mellitus terminal supervisor insulin use: without intermediate use (4) Anemia, normocytic normochromic Code(s): D64.9 - ANEMIA, UNSPECIFIED Status: Chronic (5) Dyslipidemia Code(s): E78.5 - HYPERLIPIDEMIA, UNSPECIFIED Status: Chronic (6) GERD (gastroesophageal reflux disease) Code(s): K21.9 - GASTRO-ESOPHAGEAL REFLUX DISEASE WITHOUT ESOPHAGITIS Status: Chronic (7) Hypertension Code(s): I10 - ESSENTIAL (PRIMARY) HYPERTENSION Status: Chronic (8) Hyponatremia Code(s): E87.1 - HYPO-OSMOLALITY AND HYPONATREMIA Status: Acute (9) Restless legs Status: Chronic (10) Mood disorder Code(s): F39 - UNSPECIFIED MOOD [AFFECTIVE] DISORDER Status: Chronic - Plan * Pt's breathing is more comfortable today - continue curretnt plan of care with steroids, abx, nebs - LABA, inhaled steroid and duoneb * Pulm consult * continue home meds * dm uncontrolled with steroids - resume januvia and glucotrol, change to moderate ISS with meals * bedside commode * discussed option of spiritual care for patient - she is having some social stressors, she declines for now. Will let the nurse know if she changes her mind * * hyponatremia - mild, monitor * pt taking adequate PO - will d/c IVF * anemia - monitor, will need outpatient eval * * dvt prophy - scd's and lovenox * gi prophy - on ppi at home, continue * code status DNAR confirmed yesterday * pt remains at high risk in current condition * reviewed plan of care wiht patient, no questions or further needs at end of eval * anticipate 5-6 day hospital stay due to severity of illness.
[2018-09-10] MEDS: HumaLOG 300 UNITS/3 ML VIAL SC PRN ×2 (12:26→21:02)
[2018-09-10] MEDS: Meclizine HCl 25 MG TAB PO PRN (20:53)
[2018-09-10] MEDS: Pravastatin Sodium 40 MG TAB PO SCH (20:53)
[2018-09-10] MEDS: Amlodipine 5 MG TAB PO SCH (20:56)
[2018-09-11] MEDS: Albuterol Sulfate 2.5 mg/3 ml Neb NEB SCH ×8 (01:00→13:49)
--- NOTE | 2018-09-11 01:50 | CON ---
DATE OF CONSULTATION: 09/10/2018 HISTORY OF PRESENT ILLNESS: Maggie Saldana is a 73-year-old female with COPD. She presented with complaints of 2 days of progressive shortness of breath. She also had subjective fever and green sputum. She subsequently came to the hospital and has been admitted. She says she is feeling better. She only uses her nebulizer at home once a day. PAST MEDICAL HISTORY: Remarkable for, 1. Hypertension. 2. Lipid disorder. 3. Reflux disease. 4. Diabetes. 5. Chronic respiratory failure with hypoxemia, on home O2. 6. Restless legs. 7. Status post hysterectomy. 8. History of ruptured disk, requiring surgery. 9. History of appendectomy and tonsillectomy. 10. History of cataract surgery bilaterally. FAMILY HISTORY: Positive for lung cancer and vascular disease. SOCIAL HISTORY: She quit smoking two years ago. She does not drink. She does not use drugs. REVIEW OF SYSTEMS: Ten point review of systems completed, otherwise negative. MEDICATIONS: Prior to admission, have been reviewed. She is feeling well. She only has as mentioned used her nebulizer once a day. PHYSICAL EXAMINATION: VITAL SIGNS: Blood pressure 155/56. She is afebrile. Heart rate is 91, respiratory rate 17, oximetry is 92. HEENT: Pupils are equal. Sclerae are anicteric. NECK: Supple. LUNGS: Remarkable for distant wheezes. HEART: Regular rhythm. S1 and S2 are distant. ABDOMEN: Soft and nontender. EXTREMITIES: Without clubbing, cyanosis, or edema. NEUROLOGIC: Nonfocal. LABORATORY DATA: White count 7.6, hemoglobin 9.0, platelets 260. Sodium 134, potassium 4.4, chloride 101, bicarb 22, BUN 11, and creatinine 0.68. Chest x- ray shows mild increased interstitial markings at the lung bases. IMPRESSION: Chronic obstructive pulmonary disease exacerbation. Current care. We will be happy to follow the other physicians caring for. This is a 50 minute consult, with greater than 50% of time spent on unit coordinating care. Job ID: [id number] MTDD
[2018-09-11] MEDS: methylPREDNISolone Sod Succ 40 MG VIAL IVP SCH ×2 (05:16→13:23)
[2018-09-11] MEDS: HumaLOG 300 UNITS/3 ML VIAL SC PRN ×4 (05:17→21:06)
[2018-09-11 05:28] LABS: #Lymphocytes 0.9 thou/uL (1.20-3.40); #Monocytes 0.5 thou/uL (0.11-0.59); #Neutrophils 8.9 thou/uL (1.40-6.50); %Basophils 0.4 % (0.0-1.0); %Monocytes 4.8 % (0.0-10.0); %Neutrophils 85.8 % (42.0-75.0); Hemoglobin 9.2 g/dL (12.0-16.0); Mean Corpuscular HGB CONC 32.8 g/dL (32.0-36.0); Mean Corpuscular Hemoglobin 28.1 pg (27.0-31.0); Mean Corpuscular Volume 85.7 fL (78.0-98.0); Mean Platelet Volume 7.7 fL (7.4-10.4); Platelet Count 277 thou/uL (130-400); RBC Distribution Width 14.4 % (11.5-14.5); Red Blood Cell (RBC) Count 3.27 mill/uL (4.20-5.40); White Blood Cell (WBC) Count 10.3 thou/uL (4.8-10.8)
[2018-09-11 05:48] LABS: Anion Gap 10 mmol/L (10-20); BUN (Urea Nitrogen) 21 mg/dL (9.8-20.1); Calc. Creatinine Clearance 104 mL/min (70-130); Calcium 9.2 mg/dL (7.8-10.44); Carbon Dioxide 28 mmol/L (23-31); Chloride 105 mmol/L (98-107); Estimated GFR-MDRD 82; Glucose 287 mg/dL (83-110); Potassium 4.4 mmol/L (3.5-5.1); Sodium 139 mmol/L (136-145)
[2018-09-11] MEDS: Arformoterol 15 MCG/2 ML NEB NEB SCH ×2 (07:31→18:25)
[2018-09-11] MEDS: Budesonide 0.5 MG/2 ML NEB INH SCH (07:34)
[2018-09-11] MEDS: Gabapentin 300 MG CAP PO SCH ×3 (08:10→21:05)
[2018-09-11] MEDS: FLUoxetine HCl 20 MG CAP PO SCH (08:10)
[2018-09-11] MEDS: Enoxaparin Sodium 40 MG/0.4 ML SYRINGE SC SCH (08:10)
[2018-09-11] MEDS: Aspirin 81 mg Enteric Coated Tablet PO SCH (08:11)
[2018-09-11] MEDS ORDERED: Albuterol Sulfate 2.5 mg/3 ml Neb NEB PRN (14:04)
--- NOTE | 2018-09-11 14:38 | PDOC.PN ---
- Subjective Encounter Start Date: 09/11/18 (f/u COPD exacerbation) Encounter Start Time: 14:36 Subjective: Pt feeling better, does get short of breath with moving to bedside -: commode. Denies cp/n/v/abd pain/diarrhea - Objective Resuscitation Status - Order Detail: 09/09/18 18:18 Resuscitation Status Routine Resuscitation Status: DNAR: NO Resuscitation Discussed with: by patient and confirmed with daughter Shanon in the room Vital Signs & Weight: Vital Signs (12 hours) Temp Pulse Resp BP BP Pulse Ox 09/11/18 13:55 91 20 98 09/11/18 11:01 88 20 99 09/11/18 08:12 130/62 09/11/18 08:00 97.9 F 91 20 130/62 98 09/11/18 07:31 89 18 97 09/11/18 04:00 97.7 F 84 20 131/67 95 Weight Admit Weight 200 lb 6 oz Weight 200 lb 6 oz I&O: 09/10/18 09/11/18 09/12/18 06:59 06:59 06:59 Intake Total 1860 600 Output Total 750 Balance 1110 600 Result Diagrams: 09/11/18 04:29 09/11/18 04:29 Additional Labs: Accuchecks 09/11/18 09/11/18 09/10/18 11:21 04:51 20:21 POC Glucose 349 H 295 H 317 H 09/10/18 15:46 POC Glucose 339 H Phys Exam - Physical Examination Constitutional: NAD Respiratory: no rales, no rhonchi improved air movement with wheezing Cardiovascular: RRR, no significant murmur Gastrointestinal: soft, non-tender, no distention, positive bowel sounds Musculoskeletal: no edema Neurological: non-focal, moves all 4 limbs Psychiatric: normal affect Dx/Plan (1) Acute and chronic respiratory failure with hypoxia Code(s): J96.21 - ACUTE AND CHRONIC RESPIRATORY FAILURE WITH HYPOXIA Status: Acute (2) COPD with exacerbation Code(s): J44.1 - CHRONIC OBSTRUCTIVE PULMONARY DISEASE W (ACUTE) EXACERBATION Status: Acute (3) Diabetes mellitus Code(s): E11.9 - TYPE 2 DIABETES MELLITUS WITHOUT COMPLICATIONS Status: Chronic Qualifiers: Diabetes mellitus type: type 2 Diabetes mellitus tank terminal gauger insulin use: without group home use (4) Anemia, normocytic normochromic Code(s): D64.9 - ANEMIA, UNSPECIFIED Status: Chronic (5) Dyslipidemia Code(s): E78.5 - HYPERLIPIDEMIA, UNSPECIFIED Status: Chronic (6) GERD (gastroesophageal reflux disease) Code(s): K21.9 - GASTRO-ESOPHAGEAL REFLUX DISEASE WITHOUT ESOPHAGITIS Status: Chronic (7) Hypertension Code(s): I10 - ESSENTIAL (PRIMARY) HYPERTENSION Status: Chronic (8) Hyponatremia Code(s): E87.1 - HYPO-OSMOLALITY AND HYPONATREMIA Status: Acute (9) Restless legs Status: Chronic (10) Mood disorder Code(s): F39 - UNSPECIFIED MOOD [AFFECTIVE] DISORDER Status: Chronic - Plan * * Improvement - able to use bedside commode, on admission was short of breath with sitting up in bed. Increase activity as tolerated * Change to oral steroids * d/c pulmicort * continue nebs and change albuterol to q2h prn, continue LABA * continue home meds * dm uncontrolled with steroids - resumed januvia and glucotrol yesterday * Add lantus 10 units at night * change to aggressive SSI with meals * change to oral steroids * bedside commode * hyponatremia -resolved * anemia - stable/monitor, will need outpatient eval * * dvt prophy - scd's and lovenox * gi prophy - on ppi at home, continue * code status DNAR confirmed yesterday * * pt remains at high risk in current condition * reviewed plan of care wiht patient, no questions or further needs at end of eval * anticipate 3-4 days and discharge to home.
[2018-09-11] MEDS ORDERED: Insulin Glargine 10 UNITS in Pre-Filled Syringe 1 EACH SC SCH (21:00)
[2018-09-11] MEDS: Amlodipine 5 MG TAB PO SCH (21:02)
[2018-09-11] MEDS: Alogliptin 25 MG TAB PO SCH (21:02)
[2018-09-11] MEDS: Pravastatin Sodium 40 MG TAB PO SCH (21:06)
[2018-09-11] MEDS: Meclizine HCl 25 MG TAB PO PRN (21:28)
[2018-09-12] MEDS ORDERED: Morphine 2 MG/ML SYRINGE SLOW IVP PRN (01:49)
[2018-09-12 02:08] LABS: #Lymphocytes 1.5 thou/uL (1.20-3.40); #Neutrophils 11.9 thou/uL (1.40-6.50); %Basophils 0.2 % (0.0-1.0); %Eosinophils 0.1 % (0.0-10.0); %Lymphocytes 10.3 % (21.0-51.0); %Monocytes 6.9 % (0.0-10.0); %Neutrophils 82.4 % (42.0-75.0); Mean Corpuscular HGB CONC 33.1 g/dL (32.0-36.0); Mean Corpuscular Hemoglobin 28.1 pg (27.0-31.0); Mean Corpuscular Volume 84.7 fL (78.0-98.0); Mean Platelet Volume 7.1 fL (7.4-10.4); Platelet Count 320 thou/uL (130-400); RBC Distribution Width 14.5 % (11.5-14.5); Red Blood Cell (RBC) Count 3.55 mill/uL (4.20-5.40); White Blood Cell (WBC) Count 14.5 thou/uL (4.8-10.8)
[2018-09-12 02:34] LABS: ALT (SGPT) 20 U/L (8-55); AST (SGOT) 22 U/L (5-34); Albumin 3.6 g/dL (3.4-4.8); Alkaline Phosphatase 72 U/L (40-150); Anion Gap 11 mmol/L (10-20); BUN (Urea Nitrogen) 24 mg/dL (9.8-20.1); Bilirubin, Total 0.2 mg/dL (0.2-1.2); Calc. Creatinine Clearance 103 mL/min (70-130); Calcium 9.2 mg/dL (7.8-10.44); Carbon Dioxide 29 mmol/L (23-31); Chloride 100 mmol/L (98-107); Estimated GFR-MDRD 81; Globulin 2.8 g/dL (2.4-3.5); Glucose 237 mg/dL (83-110); Lipase 11 U/L (8-78); Potassium 4.3 mmol/L (3.5-5.1); Protein, Total 6.4 g/dL (6.0-8.3); Sodium 136 mmol/L (136-145)
[2018-09-12] MEDS: HumaLOG 300 UNITS/3 ML VIAL SC PRN ×2 (05:34→12:46)
[2018-09-12] MEDS: Arformoterol 15 MCG/2 ML NEB NEB SCH ×2 (07:08→18:34)
--- NOTE | 2018-09-12 07:40 | CT ---
CT Abdomen Pelvis W Con History: Abdominal pain Comparison: Abdomen pelvis CT October 2017 the lung bases. Findings: Scarring and bronchiectasis within the lung bases. Liver gallbladder spleen and pancreas ar e normal. No aneurysmal dilatation of the aorta. No dilated loops of large or small bowel. Impression: Findings and impression are concordant with the preliminary report.
[2018-09-12] MEDS: Gabapentin 300 MG CAP PO SCH ×3 (08:58→20:17)
[2018-09-12] MEDS: Aspirin 81 mg Enteric Coated Tablet PO SCH (09:02)
[2018-09-12] MEDS: FLUoxetine HCl 20 MG CAP PO SCH (09:02)
[2018-09-12] MEDS: predniSONE 20 MG TAB PO SCH (09:02)
[2018-09-12] MEDS: Enoxaparin Sodium 40 MG/0.4 ML SYRINGE SC SCH (09:03)
[2018-09-12] MEDS ORDERED: guaiFENesin ER 600 MG TAB PO SCH (12:45)
[2018-09-12] MEDS ORDERED: Polyethylene Glycol 3350 17 GM Packet PO SCH (12:45)
--- NOTE | 2018-09-12 13:01 | PRG ---
DATE OF SERVICE: 09/12/2018 SERVICE: Pulmonary Medicine. INTERVAL HISTORY: The patient is doing fine from respiratory standpoint. Breathing comfortably. She is coughing and bringing up a little bit of yellow phlegm. It is clearing out. She is finding it easier to cough. She denies any current fevers, chills, nausea, vomiting, or diarrhea. Overnight, she had severe right lower quadrant abdominal discomfort. A CT scan did not show anything. She is being told that it might be a gas bubble. She takes Mucinex at home, but it is not being given here. As such, she has requested that medication. She also takes MiraLAX. PHYSICAL EXAMINATION: VITAL SIGNS: Afebrile, pulse 82, blood pressure 131/64, respirations 18, and saturation 95% on 2 L nasal cannula (she wears 2 L at home). HEENT: Normocephalic and atraumatic. Sclerae white. Conjunctivae pink. Oral mucosa is moist without lesions. LUNGS: Decent air entry. There are rhonchi present. There is a slightly prolonged expiratory phase, but I do not hear excessive wheezing. No dependent crackles are noted. HEART: Normal rate and regular. ABDOMEN: Soft, nontender, and nondistended. Bowel sounds are positive. There is no rebound or guarding present. MUSCULOSKELETAL: No cyanosis or clubbing. No pitting in the bilateral lower extremities. NEUROLOGIC: Grossly nonfocal. LABORATORY DATA: WBC 14.5, hemoglobin 10.0, platelets 320,000. Creatinine 0.71. Basic metabolic profile and liver function studies are otherwise unremarkable. Blood cultures x2 are negative. IMAGING STUDIES: CT of the abdomen and pelvis demonstrates no acute intraabdominal issue. ASSESSMENT: 1. Acute on chronic hypoxic respiratory failure, returned to baseline. 2. Chronic obstructive pulmonary disease with acute exacerbation, resolving. 3. Abdominal discomfort, resolved. 4. Leukocytosis, new onset. DISCUSSION AND PLAN: I will deescalate her antibiotics, nebulized medications, and steroids. I will initiate MiraLAX and simethicone. We will also schedule Mucinex twice daily. We will continue mobilization efforts through time. All in list to help with the walking program. Pulmonary/Critical Care will continue to follow along while the patient remains inhouse. Job ID: [id number]
[2018-09-12] MEDS ORDERED: Sodium Chloride 0.9% 1,000 ML IV SCH (16:00)
--- NOTE | 2018-09-12 16:52 | PDOC.PN ---
- Subjective Encounter Start Date: 09/12/18 (f/u COPD exac) Encounter Start Time: 16:50 Subjective: Pt c/o abdominal pain that started last night - CT scan performed. -: denies any n/v, last bm was 2 days ago and normal. Denies any chest -: pain. Has been ambulating around the room. - Objective Resuscitation Status - Order Detail: 09/09/18 18:18 Resuscitation Status Routine Resuscitation Status: DNAR: NO Resuscitation Discussed with: by patient and confirmed with daughter Shanon in the room Vital Signs & Weight: Vital Signs (12 hours) Temp Pulse Resp BP BP Pulse Ox 09/12/18 13:48 75 16 98 09/12/18 11:50 97.6 F 79 18 105/52 L 93 L 09/12/18 09:05 131/64 09/12/18 08:00 95 09/12/18 07:45 97.7 F 82 18 131/64 95 09/12/18 07:10 81 20 96 09/12/18 07:08 81 20 96 Weight Admit Weight 200 lb 6 oz Weight 200 lb 6 oz I&O: 09/11/18 09/12/18 09/13/18 06:59 06:59 06:59 Intake Total 600 720 Balance 600 720 Result Diagrams: 09/12/18 02:00 09/12/18 02:00 Additional Labs: Accuchecks 09/12/18 09/12/18 09/11/18 11:56 04:25 20:25 POC Glucose 263 H 249 H 264 H Phys Exam - Physical Examination Constitutional: NAD Respiratory: no rales, no rhonchi pt with improved air movement today - noticeably better Cardiovascular: RRR, no significant murmur Gastrointestinal: soft, non-tender, no distention, positive bowel sounds ttp along the lower ant right ribs - reproduces pain Neurological: non-focal, moves all 4 limbs Skin: no rash Dx/Plan (1) Acute and chronic respiratory failure with hypoxia Code(s): J96.21 - ACUTE AND CHRONIC RESPIRATORY FAILURE WITH HYPOXIA Status: Acute (2) COPD with exacerbation Code(s): J44.1 - CHRONIC OBSTRUCTIVE PULMONARY DISEASE W (ACUTE) EXACERBATION Status: Acute (3) Diabetes mellitus Code(s): E11.9 - TYPE 2 DIABETES MELLITUS WITHOUT COMPLICATIONS Status: Chronic Qualifiers: Diabetes mellitus type: type 2 Diabetes mellitus half-way insulin use: without termite control technician use (4) Anemia, normocytic normochromic Code(s): D64.9 - ANEMIA, UNSPECIFIED Status: Chronic (5) Dyslipidemia Code(s): E78.5 - HYPERLIPIDEMIA, UNSPECIFIED Status: Chronic (6) GERD (gastroesophageal reflux disease) Code(s): K21.9 - GASTRO-ESOPHAGEAL REFLUX DISEASE WITHOUT ESOPHAGITIS Status: Chronic (7) Hypertension Code(s): I10 - ESSENTIAL (PRIMARY) HYPERTENSION Status: Chronic (8) Hyponatremia Code(s): E87.1 - HYPO-OSMOLALITY AND HYPONATREMIA Status: Acute (9) Restless legs Status: Chronic (10) Mood disorder Code(s): F39 - UNSPECIFIED MOOD [AFFECTIVE] DISORDER Status: Chronic - Plan * * Improvement - significant improvement today - continue tx as directed by Pulmonology * continue home meds * dm uncontrolled with steroids - resumed januvia and glucotrol yesterday * Increase lantus to 15 units at bedtime * continue aggressive SSI with meals * ambulation encouraged * abd pain c/w rib pain - trial of lidoderm patch. Reviewed CT scan and negative * * Given contrast study and pt is on vivi-i, will start 1L IVF overnight * anemia - stable/monitor, will need outpatient eval * * dvt prophy - scd's and lovenox * gi prophy - on ppi at home, continue * code status DNAR confirmed yesterday * * pt remains at high risk in current condition * reviewed plan of care wiht patient, no questions or further needs at end of eval * anticipate 1-2 days and discharge to home
[2018-09-12] MEDS: Simethicone Chewable 80 MG TAB PO SCH ×3 (17:18→22:14)
[2018-09-12] MEDS: Lidocaine 5% Patch TD SCH (17:23)
[2018-09-12] MEDS: Pravastatin Sodium 40 MG TAB PO SCH (20:17)
[2018-09-12] MEDS: Amlodipine 5 MG TAB PO SCH (20:18)
[2018-09-12] MEDS: Alogliptin 25 MG TAB PO SCH (20:18)
[2018-09-12] MEDS: guaiFENesin ER 600 MG TAB PO SCH (20:19)
[2018-09-12] MEDS ORDERED: Insulin Glargine 15 UNITS in Pre-Filled Syringe SC SCH (21:00)
[2018-09-12] MEDS: Meclizine HCl 25 MG TAB PO PRN (21:06)
[2018-09-13] MEDS ORDERED: Lidocaine Patch Removal TOP SCH (05:00)
[2018-09-13] MEDS: Arformoterol 15 MCG/2 ML NEB NEB SCH (06:30)
[2018-09-13 07:00] LABS: #Eosinphils 0.1 thou/uL (0.0-0.7); #Lymphocytes 3.6 thou/uL (1.20-3.40); #Monocytes 1.7 thou/uL (0.11-0.59); #Neutrophils 7.3 thou/uL (1.40-6.50); %Basophils 0.3 % (0.0-1.0); %Eosinophils 0.4 % (0.0-10.0); %Lymphocytes 28.6 % (21.0-51.0); %Monocytes 13.3 % (0.0-10.0); %Neutrophils 57.4 % (42.0-75.0); Hemoglobin 9.8 g/dL (12.0-16.0); Mean Corpuscular HGB CONC 31.7 g/dL (32.0-36.0); Mean Corpuscular Hemoglobin 27.1 pg (27.0-31.0); Mean Corpuscular Volume 85.5 fL (78.0-98.0); Mean Platelet Volume 7.1 fL (7.4-10.4); Platelet Count 341 thou/uL (130-400); RBC Distribution Width 14.3 % (11.5-14.5); White Blood Cell (WBC) Count 12.7 thou/uL (4.8-10.8)
[2018-09-13 07:20] LABS: Anion Gap 12 mmol/L (10-20); BUN (Urea Nitrogen) 16 mg/dL (9.8-20.1); Calc. Creatinine Clearance 128 mL/min (70-130); Calcium 8.8 mg/dL (7.8-10.44); Carbon Dioxide 28 mmol/L (23-31); Chloride 101 mmol/L (98-107); Estimated GFR-MDRD Greater than 90; Glucose 75 mg/dL (83-110); Potassium 3.6 mmol/L (3.5-5.1); Sodium 137 mmol/L (136-145)
[2018-09-13 08:09] VITALS: TEMP 97.6
[2018-09-13] MEDS ORDERED: Polyethylene Glycol 3350 17 GM Packet PO SCH (09:00)
[2018-09-13] MEDS: predniSONE 20 MG TAB PO SCH (09:14)
[2018-09-13] MEDS: FLUoxetine HCl 20 MG CAP PO SCH (09:15)
[2018-09-13] MEDS: Enoxaparin Sodium 40 MG/0.4 ML SYRINGE SC SCH (09:15)
[2018-09-13] MEDS: Aspirin 81 mg Enteric Coated Tablet PO SCH (09:15)
[2018-09-13] MEDS: guaiFENesin ER 600 MG TAB PO SCH (09:15)
[2018-09-13] MEDS: Gabapentin 300 MG CAP PO SCH ×2 (09:15→16:41)
[2018-09-13] MEDS: Simethicone Chewable 80 MG TAB PO SCH ×2 (09:17→13:06)
[2018-09-13 09:35] VITALS: BP 131/64
[2018-09-13] MEDS ORDERED: HumaLOG 300 UNITS/3 ML VIAL SC PRN (11:58)
--- NOTE | 2018-09-13 12:05 | PDOC.PN ---
- Subjective Encounter Start Date: 09/13/18 (f/u acute resp failure) Encounter Start Time: 12:00 Subjective: Pt notes that pain in abd is improved, she is able to -: ambulate more. Denies any chest pain/n/v - Objective Resuscitation Status - Order Detail: 09/09/18 18:18 Resuscitation Status Routine Resuscitation Status: DNAR: NO Resuscitation Discussed with: by patient and confirmed with daughter Shanon in the room Vital Signs & Weight: Vital Signs (12 hours) Temp Pulse Resp BP BP BP BP 09/13/18 09:16 131/64 09/13/18 08:01 78 18 09/13/18 07:22 09/13/18 07:15 97.6 F 89 20 126/66 09/13/18 06:30 78 18 09/13/18 04:00 91 20 129/63 09/13/18 00:45 97.4 F L 80 20 131/70 09/13/18 00:39 85 16 Pulse Ox 09/13/18 09:16 09/13/18 08:01 95 09/13/18 07:22 95 09/13/18 07:15 94 L 09/13/18 06:30 95 09/13/18 04:00 94 L 09/13/18 00:45 09/13/18 00:39 95 Weight Admit Weight 200 lb 6 oz Weight 200 lb 6 oz I&O: 09/12/18 09/13/18 09/14/18 06:59 06:59 06:59 Intake Total 720 1400 Balance 720 1400 Result Diagrams: 09/13/18 06:33 09/13/18 06:33 Additional Labs: Accuchecks 09/13/18 09/13/18 09/12/18 11:20 05:19 20:25 POC Glucose 118 H 107 372 H 09/12/18 09/12/18 17:04 11:56 POC Glucose 112 H 263 H Phys Exam - Physical Examination Constitutional: NAD Respiratory: no rales, no rhonchi improved air movement, faint wheezing Cardiovascular: RRR, no significant murmur Gastrointestinal: soft, no distention, positive bowel sounds Musculoskeletal: no edema Neurological: non-focal, moves all 4 limbs Psychiatric: normal affect Dx/Plan (1) Acute and chronic respiratory failure with hypoxia Code(s): J96.21 - ACUTE AND CHRONIC RESPIRATORY FAILURE WITH HYPOXIA Status: Acute (2) COPD with exacerbation Code(s): J44.1 - CHRONIC OBSTRUCTIVE PULMONARY DISEASE W (ACUTE) EXACERBATION Status: Acute (3) Diabetes mellitus Code(s): E11.9 - TYPE 2 DIABETES MELLITUS WITHOUT COMPLICATIONS Status: Chronic Qualifiers: Diabetes mellitus type: type 2 Diabetes mellitus intermediate insulin use: without remote computer terminal operator use (4) Anemia, normocytic normochromic Code(s): D64.9 - ANEMIA, UNSPECIFIED Status: Chronic (5) Dyslipidemia Code(s): E78.5 - HYPERLIPIDEMIA, UNSPECIFIED Status: Chronic (6) GERD (gastroesophageal reflux disease) Code(s): K21.9 - GASTRO-ESOPHAGEAL REFLUX DISEASE WITHOUT ESOPHAGITIS Status: Chronic (7) Hypertension Code(s): I10 - ESSENTIAL (PRIMARY) HYPERTENSION Status: Chronic (8) Hyponatremia Code(s): E87.1 - HYPO-OSMOLALITY AND HYPONATREMIA Status: Resolved (9) Restless legs Status: Chronic (10) Mood disorder Code(s): F39 - UNSPECIFIED MOOD [AFFECTIVE] DISORDER Status: Chronic - Plan * Pt continues to improve - continue current recs by Pulmonology - appreciate consult * continue home meds * dm - normal blood sugar this morning, likely reflective of de-escalating steroids 2 days ago. Will d/c long acting insulin and change to moderate SSI with meals to avoid hypoglycemia. Continue home med * ambulation encouraged * abd pain c/w rib pain - pt improved with lidocaine patch - continue * * d/c IVF = performed due to contrast study 2 nights ago and pt on vivi-i, renal function normal * * anemia - stable/monitor, will need outpatient eval * * leukocytosis secondary to steroids * * dvt prophy - scd's * gi prophy - on ppi at home, continue * code status DNAR confirmed yesterday * * recommend SNF for strengthening/pulmonary rehab - d/w case management. If qualifies, I think she is ready for discharge. If she does not qualify, recommend home health
--- NOTE | 2018-09-13 15:18 | PRG ---
DATE OF SERVICE: 09/13/2018 SERVICE: Pulmonary Medicine. INTERVAL HISTORY: The patient is breathing just fine. She has had a little bit of a cough, but has no problem getting the sputum up. She is not having any dyspnea on exertion. She is also not having any conversational dyspnea. In fact, I find her quite gregarious today. She really does not want to go home. She tells me that is because she feels that she is a burden on her family. She indicates that they have been very good to her over the last several years, but feels like she is preventing them from living the life they need to live. Otherwise, there has been no interval change to her condition. PHYSICAL EXAMINATION: VITAL SIGNS: Afebrile. Pulse 89, blood pressure 131/64, respirations 18, saturation 97% on 2 L nasal cannula. GENERAL: The patient is awake and alert, in no apparent distress. LUNGS: Very good air entry without any prolonged expiratory phase or wheezing present. HEART: Normal rate and regular. ABDOMEN: Soft, nontender, nondistended. Bowel sounds are positive. MUSCULOSKELETAL: No cyanosis or clubbing. No pitting in the bilateral lower extremities. NEUROLOGIC: Grossly nonfocal. LABORATORY DATA: WBC 12.7, hemoglobin 9.8, platelets 341,000. Basic metabolic profile is otherwise unremarkable. Liver function studies were previously unremarkable. Blood sugars are under decent control and ranged from 107 to 262. Blood cultures negative x2. ASSESSMENT: 1. Acute on chronic hypoxic respiratory failure, returned to baseline. 2. Chronic obstructive pulmonary disease with acute exacerbation, resolved. 3. Abdominal discomfort, improving. 4. Leukocytosis, resolving once again with normalizing differential. DISCUSSION AND PLAN: We will continue her antibiotics, steroids, and nebulized medication. All three can be interrupted after total duration of 5 days. We will continue the MiraLAX and simethicone. Hopefully, as her coughing starts to decrease, she will have improving abdominal discomfort. This abdominal discomfort seems to be in the wall of the right mid abdomen. There are no rashes overlying this region, and there is no erythema. I do not feel any fluctuant lesion. With palpation of the abdomen, it reproduces the discomfort. There is certainly no tenderness with deep palpation, or rebound. From my perspective, she is stable for transition out of the hospital. We are looking into outpatient placement, so that she can pursue aggressive physical therapy for her deconditioned state. Job ID: [id number]
[2018-09-13] MEDS: Lidocaine 5% Patch TD SCH (16:41)
--- NOTE | 2018-09-14 05:23 | DIS ---
DATE OF ADMISSION: 09/09/2018 DATE OF DISCHARGE: 09/13/2018 SIZING SPONGER: Rajendra Gonzáles MD. MEDICATIONS: Medications are reconciled at discharge. New medications: 1. Albuterol nebulizer every 2 hours as needed. 2. Tylenol 650 mg every 6 hours as needed. 3. DuoNeb every 6 hours scheduled. 4. Lactulose 20 g daily as needed for constipation. 5. Lidoderm patch 12 hours on, 12 hours off at the site of pain which is the right lower ribs. 6. MiraLAX 17 g p.o. daily. 7. Mucinex 600 mg b.i.d. 8. Prednisone 40 mg daily for one day which is tomorrow, September 14. 9. Tramadol 50 mg every 6 hours as needed for pain. Home medications to continue: 1. Amlodipine 2.5 mg daily. 2. Aspirin 81 mg daily. 3. Symbicort 2 puffs b.i.d. 4. Diltiazem 360 mg once daily. 5. Nexium 40 mg daily. 6. Fluoxetine 40 mg daily. 7. Gabapentin 300 mg t.i.d. 8. Levocetirizine 5 mg daily. 9. Meclizine 25 mg at night as needed. 10. Myrbetriq 50 mg daily. 11. Pravastatin 40 mg daily. 12. Quinapril 40 mg daily. 13. Glipizide XL 5 mg daily. 14. Sitagliptin 100 mg at bedtime. DISCHARGE DISPOSITION: To [facility] for pulmonary rehab, PT and OT. FINAL DIAGNOSES: 1. Acute on chronic respiratory failure with hypoxia. 2. Chronic obstructive pulmonary disease exacerbation. 3. Abdominal pain, localized to the right lower ribs. SECONDARY DIAGNOSES: 1. Hypertension. 2. Chronic anemia. 3. Diabetes mellitus type 2. 4. Hyponatremia, resolved. 5. Dyslipidemia. 6. Restless legs. 7. Gastroesophageal reflux disease. 8. Mood disorder. HISTORY OF PRESENT ILLNESS: Ms. Saldana is a 73-year-old female with known COPD, on chronic oxygen therapy, who presented to the emergency room due to fever, change in productive cough, and difficulty breathing. She was found to have a severe COPD exacerbation and started on treatment for this. HOSPITAL COURSE: The patient has been managed on Levaquin and completed a 5 day course, steroids starting with IV, then transitioned to oral steroids 2 days ago, nebulizer therapy. She has tolerated this well and has progressed from being short of breath with any movement in bed to ambulating today around the room. All medications for her breathing have been in conjunction with Dr. Gonzáles of Pulmonology. The patient has made good progress and he recommends she has one more dose of prednisone and then discontinue. Given her severe exacerbation, I do think she will benefit from PT, OT, and pulmonary rehab, which is available in [place] in swing bed status. The patient was febrile on admission, but has not had any further fevers here. Abdominal pain. The patient 2 nights ago, had the acute onset of abdominal pain which she described as something popping in her right upper abdomen. She was evaluated with a CT scan with contrast which was negative. Her pain initially was treated with morphine. On my exam yesterday, her pain localized to the right lower ribs area of tenderness to palpation, which is consistent with her pain when she coughs or moves. We started a lidocaine patch and she does report improvement of this. I think managing the cough, as well as continuing to treat the pain should help this to resolve. The patient also started on bowel medications for constipation. Diabetes. The patient's blood sugars have been uncontrolled here, attributed to the steroids. Her blood sugars were in the 200s and 300s. She was started on Lantus at night, as well as sliding scale insulin during the day. With the transition over to oral steroids, her blood sugar this morning was 75. The Lantus is being discontinued, and she is on her home medications of Januvia and Glucotrol. I recommend that she is on a sliding scale insulin at the swing bed facility for monitoring. The patient was kept on her usual home medications. Her blood pressure has been well controlled here. She has continued on 2 L nasal cannula. The patient overall has significantly improved and does meet criteria for discharge [facility]. PHYSICAL EXAMINATION: Please see note on chart from today. YOUNG FINDINGS AND TEST RESULTS: Renal panel; today 137, 3.6, 101, 28, 16, 0.57, 75, with a calcium of 8.8. LFTs: T-bilirubin 0.2, AST 22, ALT 20, alkaline phosphatase 72, total protein 6.4, albumin 3.6. Troponin negative on admission, BNP 86. CBC; 12.7, 9.8, 30.8, 341, with an MCV of 85. Blood cultures x2 were negative. CT abdomen and pelvis with contrast on September 12, no acute findings to explain the pain, scarring and bronchiectasis within the lung bases. Chest x-ray on September 09, findings concerning for chronic interstitial lung disease such as pulmonary fibrosis. DIET: Heart healthy, carbohydrate consistent. ACTIVITY: Encouraged and as directed by PT and OT. CODE STATUS: Do not attempt resuscitation, which is confirmed with the patient and her daughter at the time of admission here. I reviewed with the patient this hospitalization, recommendation for transfer for pulmonary rehab, PT and OT and she is in agreement. The patient will follow up with her primary care providers after discharge from there. No questions or further needs at end of evaluation. Total time coordinating discharge is 40 minutes. Job ID: [id number] MTDD
== END 2018-09-13 17:16 | DRG 189 ==
LOC: ERS 13:43 → T4-B 16:30
PROVIDERS: ADMIT Family Medicine; ATTEND Family Medicine
DX: J96.21 Acute and chronic respiratory failure with hypoxia (principal); J44.1 Chronic obstructive pulmonary disease with (acute) exacerbation; E87.1 Hypo-osmolality and hyponatremia; Z66 Do not resuscitate; D64.9 Anemia, unspecified; I10 Essential (primary) hypertension; E11.9 Type 2 diabetes mellitus without complications; E78.5 Hyperlipidemia, unspecified; K21.9 Gastro-esophageal reflux disease without esophagitis; G25.81 Restless legs syndrome; F32.9 Major depressive disorder, single episode, unspecified; F17.290 Nicotine dependence, other tobacco product, uncomplicated; T38.0X5A Adverse effect of glucocorticoids and synthetic analogues, initial encounter; D72.829 Elevated white blood cell count, unspecified; Y92.239 Unspecified place in hospital as the place of occurrence of the external cause; R10.9 Unspecified abdominal pain; Z99.81 Dependence on supplemental oxygen; Z90.49 Acquired absence of other specified parts of digestive tract; Z79.899 Other long term (current) drug therapy; Z79.51 Long term (current) use of inhaled steroids; Z79.82 Long term (current) use of aspirin; Z79.84 Long term (current) use of oral hypoglycemic drugs
CPT/HCPCS: 36415; 36416; 71045; 74177; 80048; 80053; 83605; 83690; 83880; 84484; 85025; 87040; 93005; 94640; 96365; 96366; 96375; J1650; J1825; J1956; J2270; J2920; J2930; J3480; J7512; J7611; J7620; J7626; J8499

== ENCOUNTER 2018-12-13 10:18 | Outpatient (CLI) | payer MEDICARE, MEDICAID ==
--- NOTE | 2018-12-13 10:41 | RAD ---
EXAM: Chest 2 views: HISTORY: Dyspnea COMPARISON: 09/09/2018 FINDINGS: Mild vertical height loss of one of the mid thoracic vertebral bodies, age indeterminant. Mild stable increased markings bilaterally evidence for chronic change. Heart size:Within normal limits. Lungs:Clear of acute process. Atherosclerotic changes of the aorta. No confluent pneumonia, overt edema, pleural effusion, pneumothorax, or other significant acute proce ss. IMPRESSION: Atherosclerosis of the aorta. No acute intrathoracic disease.
== END 2018-12-13 10:19 | disposition home or self-care (01) ==
LOC: RAD 10:18
PROVIDERS: ATTEND Internal Medicine Critical Care Medicine
DX: R06.00 Dyspnea, unspecified (principal); I70.0 Atherosclerosis of aorta
CPT/HCPCS: 71046

== ENCOUNTER 2019-01-10 11:22 | Inpatient (IN) | payer MEDICARE, MEDICAID ==
[2019-01-10] MEDS ORDERED: methylPREDNISolone Sod Succ/PF 125 MG/2 ML VIAL ONE (12:06)
[2019-01-10 12:54] LABS: ALT (SGPT) 17 U/L (8-55); AST (SGOT) 14 U/L (5-34); Albumin 3.4 g/dL (3.4-4.8); Alkaline Phosphatase 76 U/L (40-110); Anion Gap 15 mmol/L (10-20); BUN (Urea Nitrogen) 26 mg/dL (9.8-20.1); Bilirubin, Total 0.3 mg/dL (0.2-1.2); Calc. Creatinine Clearance 0 mL/min (70-130); Calcium 8.7 mg/dL (7.8-10.44); Carbon Dioxide 24 mmol/L (23-31); Chloride 98 mmol/L (98-107); Estimated GFR-MDRD 43; Globulin 2.9 g/dL (2.4-3.5); Glucose 104 mg/dL (83-110); Potassium 3.5 mmol/L (3.5-5.1); Protein, Total 6.3 g/dL (6.0-8.3); Sodium 133 mmol/L (136-145)
[2019-01-10 13:04] LABS: Mean Corpuscular HGB CONC 31.3 g/dL (32.0-36.0); Mean Corpuscular Hemoglobin 25.5 pg (27.0-31.0); Mean Corpuscular Volume 81.4 fL (78.0-98.0); Mean Platelet Volume 7.4 fL (7.4-10.4); Platelet Count 224 thou/uL (130-400); Red Blood Cell (RBC) Count 3.53 mill/uL (4.20-5.40); White Blood Cell (WBC) Count 15.2 thou/uL (4.8-10.8)
--- NOTE | 2019-01-10 13:14 | CT ---
CT OF BRAIN PERFORMED WITHOUT CONTRAST ENHANCEMENT: Date: 01/10/19 HISTORY: Fall and syncope. FINDINGS: The ventricular and cisternal system shows mild atrophy. There is decreased attenuation of the perive ntricular white matter consistent with chronic ischemic white matter change. There are no signs of in tracerebral hemorrhage or extra-axial fluid collections. The mastoid air cells and visualized sinuses are clear. IMPRESSION: No acute intracranial abnormalities. POS: TPC
[2019-01-10 13:16] LABS: Anisocytosis SLIGHT = 6-15 cells (100X) (0-5/hpf); Band 10 % (5-11); Lymphocytes 5 % (21-51); MDiff Complete? YES; Monocytes 7 % (0-10); Neutrophil 78 % (42-75); Ovalocytes SLIGHT = 2-5 cells (100X) (0-1/hpf); Platelet Morphology Comment Appears Adequate
--- NOTE | 2019-01-10 13:18 | RAD ---
CHEST: Date: 01/10/19 HISTORY: Fall. Generalized weakness. COMPARISON: 09/09/18. FINDINGS: Heart size is borderline considering portable technique with atherosclerotic changes of the aorta. Ch ronic appearing lung changes are present. The bones are demineralized. IMPRESSION: Borderline heart size with chronic appearing lung change. POS: TPC
--- NOTE | 2019-01-10 13:32 | RAD ---
XR Pelvis AP STANDARD: 01/10/2019 12:49 PM CLINICAL INDICATION: Pain COMPARISON: None. FINDINGS: Fracture:No fracture. Arthropathy:Scattered degenerative changes are present Incidental findings:None of significance. IMPRESSION: 1. No acute osseous abnormality.
[2019-01-10 14:10] LABS: Bilirubin Negative (Negative); Blood, Urine Small (Negative); Clarity Hazy (Clear); Glucose, Urine (Dipstick) Negative (Negative); Leukocyte Small (Negative); Nitrite Negative (Negative); Protein, Urine (Dipstick) 100 mg/dL (Neg-Trace); Urobilinogen 0.2 mg/dL (Less than 2)
[2019-01-10 14:24] LABS: Bacteria/HPF 3+ HPF (None Seen); Squamous Epithelial 0-3 HPF (0-3)
[2019-01-10] MEDS ORDERED: Levofloxacin 500 mg/D5W 100 ml Premix Bag ONE (16:44)
[2019-01-10 20:43] VITALS: BMI 26.9
[2019-01-11] MEDS ORDERED: Bacteriostatic Water 30 ML VIAL FS PRN (01:28)
[2019-01-11] MEDS ORDERED: methylPREDNISolone Sod Succ 40 MG VIAL IVP SCH (02:00)
[2019-01-11] MEDS ORDERED: HumaLOG 300 UNITS/3 ML VIAL SC PRN ×2 (03:30)
[2019-01-11] MEDS ORDERED: Dextrose 50% Abboject 50 ML SYRINGE SLOW IVP PRN ×2 (03:30→07:55)
[2019-01-11] MEDS ORDERED: Dextrose 5% in Water 1,000 ML IV PRN ×2 (03:30→07:55)
[2019-01-11] MEDS ORDERED: Melatonin 3 MG TAB PO PRN (03:30)
[2019-01-11] MEDS ORDERED: Acetaminophen 325 MG TAB PO PRN (07:53)
[2019-01-11] MEDS ORDERED: Zolpidem Tartrate 5 MG TAB PO PRN (07:53)
[2019-01-11] MEDS ORDERED: Ondansetron ODT 4 MG TAB PO PRN (07:53)
[2019-01-11] MEDS ORDERED: Albuterol Sulfate 2.5 mg/3 ml Neb NEB PRN (07:53)
[2019-01-11] MEDS ORDERED: Non-Formulary Item 1 EACH (Esomeprazole Magnesium [Nexium] 40 MG) PO SCH (08:00)
--- NOTE | 2019-01-11 08:55 | HP ---
PRIMARY CARE PROVIDER: Boy Quintanilla MD. Referred to the [facility] by [facility]. HISTORY OF PRESENT ILLNESS: The patient presents with two major complaints. She had a flu shot 6 days ago, has developed significant shortness of breath, cough, wheezing, fever to 102, chills. She was seen in the emergency room and diagnosed with COPD exacerbation, acute respiratory failure with hypoxemia. She has also had a recent fall. She fell 4 days ago. She states she feels weak in her legs. She has decreased sensation in her legs. She has a burning pain in her legs. This has only been going on for about 2 weeks now. She has been having to use a walker to get about. PAST MEDICAL HISTORY: Extensive. She has chronic obstructive pulmonary disease from tobacco use. She has diabetes mellitus type 2, on oral hypoglycemic agents. She has gastroesophageal reflux disease, dyslipidemia. She has a history of restless legs syndrome. PAST SURGICAL HISTORY: Includes hysterectomy, lumbar spine surgery for a "ruptured disk 22 years ago," appendectomy, tonsillectomy, bilateral cataract surgery.. CURRENT MEDICATIONS: 1. Januvia 100 mg at bedtime. 2. Glucotrol 5 mg daily. 3. Quinapril 40 mg a day. 4. Pravastatin 40 mg a day. 5. Myrbetriq 50 mg a day. 6. Meclizine 25 mg at bedtime. 7. Gabapentin 300 mg 3 times a day. 8. Fluoxetine 40 mg a day. 9. Nexium 40 mg a day. 10. Diltiazem CD 360 mg a day. 11. Symbicort 160/4.5 two puffs twice a day. 12. Aspirin 81 mg a day. 13. Amlodipine 2.5 mg a day. 14. Albuterol nebulizer 2.5 mg q.4 hours p.r.n. ALLERGIES: METFORMIN AND CODEINE. SOCIAL HISTORY: DNAR, confirmed by her daughter. No longer smokes, quit 2 to 3 years ago. No alcohol use. FAMILY HISTORY: Significant for mother had a stroke, father had metastatic lung cancer. REVIEW OF SYSTEMS: GENERAL: She has no fever, headache. She does have occasional dizziness, described as vertigo. EYES: She states she has blurred vision. She needs an eye exam and new glasses. No double vision or flashing lights. EAR, NOSE, AND THROAT: No ear pain or drainage. No nasal bleeding. No trouble swallowing. CARDIAC: No chest pain, orthopnea or paroxysmal nocturnal dyspnea. RESPIRATIONS: See present illness. GASTROINTESTINAL: She was sick, had dry heaves five days ago. No hematemesis. No abdominal pain or diarrhea. GENITOURINARY: No hematuria or dysuria. MUSCULOSKELETAL: She feels numb in her legs, but has no swelling in her legs. No specific joint complaints. NEUROLOGIC: No strokes, seizures, or focal weakness except for her legs which she states have felt weak and numb for increasingly for the past 2 weeks. PSYCHIATRIC: Some anxiety, depression. Takes medications. SKIN: Easy bruising. HEME/LYMPH: No tender or swollen lymph nodes in axilla, inguinal or cervical area. PHYSICAL EXAMINATION: GENERAL: She is alert, pleasant, somewhat anxious lady. VITAL SIGNS: Blood pressure 138/60, pulse 81, respirations 18, and O2 saturation 93% on 2 L of nasal cannula, temperature 97.8. HEAD, EYES, EARS, NOSE, AND THROAT: Pupils are equal and round with implants. Extraocular moves are intact. Sclerae are white. Tympanic membranes clear. Nose clear. Throat is clear. NECK: Supple without jugular venous distention, adenopathy, or thyromegaly. CHEST: Hyper-resonant with coarse breath sounds, expiratory wheezes. HEART: Had a regular rate and rhythm. First and second heart sounds are clear. There are no appreciated murmurs or gallops. ABDOMEN: Soft. Bowel sounds are normal. There are no appreciated hepatosplenomegaly, masses, bruits. Bowel sounds are normal. EXTREMITIES: Reveal no cyanosis, clubbing, or edema. PULSES: Carotid, radial, and femoral and dorsalis pedis pulses are full and symmetric. SKIN: Warm and dry with multiple ecchymoses on arms. HEME/LYMPH: Reveals no tender or swollen lymph nodes. NEUROLOGIC: Cranial nerves 2 through 12 are intact. Deep tendon reflexes are normal to brisk in her arms, totally absent in her legs. Sensation is decreased in her legs. IMAGING STUDIES: Chest x-ray reveals hyperinflation with chronic lung changes, reviewed by me. EKG will be found and reviewed. If none is available, we will order one. LABORATORY DATA: White cell count 15.2, hemoglobin 9.0, platelet count 224,000. Sodium 133, potassium 3.5, BUN 26, creatinine 1.22. Liver function tests normal. Blood sugar 378. ADMITTING DIAGNOSES: 1. Acute respiratory failure. 2. Chronic obstructive pulmonary disease exacerbation. 3. Lumbar spinal stenosis. 4. Diabetes mellitus type 2. 5. Hypertension. 6. Acute kidney injury. 7. Dyslipidemia. 8. Anemia. PLAN: 1. Supplemental O2 nebulizers q.6h and q.3h p.r.n., Symbicort, IV steroids, IV Zithromax. For her suspected lumbar spinal stenosis based on falls, weakness in her legs, decreased sensation in her legs, past surgical history of lumbars, we will obtain an MRI. 2. Hypertensive medicines will be continued. 3. Accu-Cheks sliding scale, oral hypoglycemic agents. 4. Repeat basic metabolic profile in the morning. Job ID: [id number] addemdumlab called pos culture e coli in urine and blood-start in [facility]
[2019-01-11] MEDS: Gabapentin 300 MG CAP PO SCH ×3 (08:56→20:28)
[2019-01-11] MEDS: Amlodipine 5 MG TAB PO SCH (08:57)
[2019-01-11] MEDS: FLUoxetine HCl 20 MG CAP PO SCH (08:57)
[2019-01-11] MEDS: Enoxaparin Sodium 40 MG/0.4 ML SYRINGE SC SCH (08:58)
[2019-01-11] MEDS ORDERED: Non-Formulary Item 1 EACH (Budesonide-Formoterol [Symbicort 160-4.5] 2 PUFF) INH SCH (09:00)
[2019-01-11] MEDS ORDERED: Azithromycin 500 MG in Sodium Chloride 0.9% 250 ML 250 ML IVPB SCH (09:00)
[2019-01-11] MEDS ORDERED: Gabapentin 100 MG CAP PO SCH (09:00)
[2019-01-11] MEDS: cefTRIAXone\\ROCEPHIN 2 GM in Sodium Chloride 0.9% 100 ML IVPB SCH (11:28)
[2019-01-11] MEDS: methylPREDNISolone Sod Succ 40 MG VIAL IVP SCH ×2 (11:29→17:16)
--- NOTE | 2019-01-11 11:43 | MRI ---
EXAM: Lumbar spine MRI without contrast. HISTORY: Lumbar spinal stenosis COMPARISON: None FINDINGS: Multiplanar, multisequence MRI examination of the lumbar spine is performed. The conus medullaris region appears unremarkable. No evidence for abnormal marrow signal. Fairly extensive subcutaneous edema overlying the lumbar spine region from L1 through L5, nonspecific . T12-L1 disc level: Focal central and left paracentral protrusion with associated annular fissure with mild to moderate central canal and left lateral recess compression ventrally. L1-L2 disc level: Unremarkable. L2-L3 disc level: Diffuse disc bulging with mild central canal and lateral recess and foraminal steno sis. L3-L4 disc level: Diffuse disc bulging with moderate lateral recess and bilateral foraminal stenosis. L4-L5 disc level: Mild lateral recess and foraminal stenosis. L5-S1 disc level: Central disc osteophyte with minimal indention of the ventral thecal sac with very slight foraminal narrowing. 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 IMPRESSION: Multilevel variable severity canal, lateral recess, and foraminal stenosis as above. Other findings a s above.
[2019-01-11] MEDS: HumaLOG 300 UNITS/3 ML VIAL SC PRN ×2 (12:01→17:16)
[2019-01-11] MEDS: Mometasone/Formoterol 120 PUFF INHALER INH SCH (18:26)
[2019-01-11] MEDS: Alogliptin 25 MG TAB PO SCH (20:27)
[2019-01-11] MEDS: Aspirin 81 mg Enteric Coated Tablet PO SCH (20:27)
[2019-01-11] MEDS: Lisinopril 20 MG TAB PO SCH (20:28)
[2019-01-11] MEDS: Atorvastatin Calcium 10 MG TAB PO SCH (20:28)
[2019-01-11] MEDS ORDERED: QUINAPRIL HCL 40 MG PO SCH (21:00)
[2019-01-11] MEDS ORDERED: Pravastatin Sodium 40 MG TAB PO SCH (21:00)
[2019-01-11] MEDS ORDERED: DILTIAZEM HCL PO SCH (21:00)
[2019-01-11] MEDS ORDERED: Non-Formulary Item 1 EACH (Mirabegron [Myrbetriq] 50 MG) PO SCH (21:00)
[2019-01-11] MEDS ORDERED: Non-Formulary Item 1 EACH (Sitagliptin Phosphate [Januvia] 100 MG) PO SCH (21:00)
[2019-01-12] MEDS: methylPREDNISolone Sod Succ 40 MG VIAL IVP SCH ×3 (00:02→09:57)
[2019-01-12] MEDS: HumaLOG 300 UNITS/3 ML VIAL SC PRN ×4 (05:31→20:37)
[2019-01-12 07:18] LABS: #Lymphocytes 0.8 thou/uL (1.20-3.40); #Monocytes 0.4 thou/uL (0.11-0.59); #Neutrophils 11.3 thou/uL (1.40-6.50); %Basophils 0.1 % (0.0-1.0); %Lymphocytes 6.1 % (21.0-51.0); %Monocytes 2.8 % (0.0-10.0); Hemoglobin 8.6 g/dL (12.0-16.0); Mean Corpuscular HGB CONC 32.1 g/dL (32.0-36.0); Mean Corpuscular Hemoglobin 26.2 pg (27.0-31.0); Mean Corpuscular Volume 81.4 fL (78.0-98.0); Mean Platelet Volume 8.4 fL (7.4-10.4); Platelet Count 265 thou/uL (130-400); RBC Distribution Width 15.6 % (11.5-14.5); White Blood Cell (WBC) Count 12.4 thou/uL (4.8-10.8)
[2019-01-12] MEDS: Mometasone/Formoterol 120 PUFF INHALER INH SCH ×2 (07:31→18:31)
[2019-01-12 07:44] LABS: Anion Gap 11 mmol/L (10-20); BUN (Urea Nitrogen) 26 mg/dL (9.8-20.1); Calc. Creatinine Clearance 89 mL/min (70-130); Calcium 8.8 mg/dL (7.8-10.44); Carbon Dioxide 27 mmol/L (23-31); Chloride 103 mmol/L (98-107); Estimated GFR-MDRD 70; Glucose 313 mg/dL (83-110); Potassium 4.2 mmol/L (3.5-5.1); Sodium 137 mmol/L (136-145)
[2019-01-12] MEDS: FLUoxetine HCl 20 MG CAP PO SCH (09:55)
[2019-01-12] MEDS: Amlodipine 5 MG TAB PO SCH (09:55)
[2019-01-12] MEDS: Gabapentin 300 MG CAP PO SCH ×3 (09:56→20:25)
[2019-01-12] MEDS: Enoxaparin Sodium 40 MG/0.4 ML SYRINGE SC SCH (09:56)
[2019-01-12] MEDS: cefTRIAXone\\ROCEPHIN 2 GM in Sodium Chloride 0.9% 100 ML IVPB SCH (11:43)
--- NOTE | 2019-01-12 15:14 | PDOC.HOSPP ---
- Subjective Encounter Date: 01/12/19 Encounter Time: 13:12 Subjective: 73 y/o female with RLS, DM, GERD, and other who developed acute ill feeling and worsening SOB after flu shot associated with weakness, worsening lower extremity numbness and recurrent falls. Feeling better today. Still with numbness. SOB is better. - Objective Vital Signs & Weight: Vital Signs (12 hours) Temp Pulse Resp BP BP Pulse Ox 01/12/19 14:32 91 16 96 01/12/19 10:48 86 16 95 01/12/19 09:55 90 148/72 H 01/12/19 08:00 97 01/12/19 07:29 90 16 97 01/12/19 07:00 98 F 86 18 148/72 H 95 01/12/19 04:14 98.4 F 82 16 114/93 H 97 Weight Weight 198 lb 6.656 oz I&O: 01/11/19 01/12/19 01/13/19 06:59 06:59 06:59 Intake Total 1002 Balance 1002 Result Diagrams: 01/12/19 06:23 01/12/19 06:23 Additional Labs: Accuchecks 01/12/19 01/12/19 01/12/19 12:01 04:19 00:20 POC Glucose 364 H 351 H 402 H 01/11/19 01/11/19 19:23 15:35 POC Glucose 289 H 338 H Hospitalist ROS - Medication Medications: Active Medications Generic Name Dose Route Start Last Admin Trade Name Freq PRN Reason Stop Dose Admin Albuterol/Ipratropium 3 ml 01/11/19 14:30 01/12/19 14:32 Duoneb NEB 3 ml [id number] DELIO Administration Alogliptin Benzoate 25 mg 01/11/19 21:00 01/11/19 20:27 Alogliptin PO 25 mg HS DELIO Administration Amlodipine Besylate 2.5 mg 01/11/19 09:00 01/12/19 09:55 Norvasc PO 2.5 mg DAILY DELIO Administration Aspirin 81 mg 01/11/19 21:00 01/11/19 20:27 Ecotrin PO 81 mg HS DELIO Administration Atorvastatin Calcium 10 mg 01/11/19 21:00 01/11/19 20:28 Lipitor PO 10 mg HS DELIO Administration Diltiazem HCl 360 mg 01/11/19 21:00 01/11/19 20:27 Cardizem Cd PO 360 mg HS DELIO Administration Enoxaparin Sodium 40 mg 01/11/19 09:00 01/12/19 09:56 Lovenox SC 40 mg 0900 DELIO Administration Fluoxetine HCl 40 mg 01/11/19 09:00 01/12/19 09:55 Prozac PO 40 mg DAILY DELIO Administration Gabapentin 300 mg 01/11/19 09:00 01/12/19 14:25 Neurontin PO 300 mg TID DELIO Administration Glipizide 5 mg 01/11/19 09:00 01/12/19 09:57 Glucotrol Xl PO 5 mg DAILY DELIO Administration Ceftriaxone Sodium 2 gm/ 100 mls @ 200 mls/hr 01/11/19 11:00 01/12/19 11:43 Sodium Chloride IVPB 100 mls Q24HR DELIO Administration Lisinopril 40 mg 01/11/19 21:00 01/11/19 20:28 Zestril PO 40 mg HS DELIO Administration Methylprednisolone Sodium Succinate 40 mg 01/12/19 09:00 01/12/19 09:57 Solu-Medrol IVP 40 mg DAILY DELIO Administration Mirabegron 50 mg 01/11/19 21:00 01/11/19 20:29 Myrbetriq Er PO 50 mg HS DELIO Administration Mometasone Furoate/Formoterol Fumar 2 puff 01/11/19 18:30 01/12/19 07:31 Dulera 200 Mcg/5 Mcg Inhaler INH 2 puff BID-RT DELIO Administration Pantoprazole Sodium 40 mg 01/11/19 09:00 01/12/19 09:56 Protonix PO 40 mg DAILY DELIO Administration Sodium Chloride 10 ml 01/11/19 09:00 01/12/19 09:57 Flush - Normal Saline IVF 10 ml Q12HR DELIO Administration - Exam General Appearance: awake alert Eye: anicteric sclera ENT: normocephalic atraumatic Neck: symmetric, no JVD Heart: RRR Respiratory: no rales Respiratory - other findings: fair air entry with few scattered rhonchi Gastrointestinal: soft, non-tender, non-distended, normal bowel sounds Extremities: no cyanosis, no edema Neurological: cranial nerve grossly intact Neurological - other findings: Decreased sensation of both lower extremities up to mid thigh. Psychiatric: normal affect, A&O x 3 Hosp A/P (1) E coli bacteremia Code(s): R78.81 - BACTEREMIA Status: Acute (2) Sepsis Code(s): A41.9 - SEPSIS, UNSPECIFIED ORGANISM Status: Acute (3) Acute and chronic respiratory failure with hypoxia Code(s): J96.21 - ACUTE AND CHRONIC RESPIRATORY FAILURE WITH HYPOXIA Status: Acute (4) COPD with exacerbation Code(s): J44.1 - CHRONIC OBSTRUCTIVE PULMONARY DISEASE W (ACUTE) EXACERBATION Status: Acute (5) Diabetes mellitus Code(s): E11.9 - TYPE 2 DIABETES MELLITUS WITHOUT COMPLICATIONS Status: Chronic Qualifiers: Diabetes mellitus type: type 2 Diabetes mellitus intermission coordinator insulin use: without intermission coordinator use (6) GERD (gastroesophageal reflux disease) Code(s): K21.9 - GASTRO-ESOPHAGEAL REFLUX DISEASE WITHOUT ESOPHAGITIS Status: Chronic (7) Hypertension Code(s): I10 - ESSENTIAL (PRIMARY) HYPERTENSION Status: Chronic (8) Restless legs Status: Chronic (9) Gait instability Code(s): R26.81 - UNSTEADINESS ON FEET Status: Acute (10) Recurrent falls Code(s): R29.6 - REPEATED FALLS Status: Acute (11) UTI (urinary tract infection) Status: Acute (12) CAROL (acute kidney injury) Code(s): N17.9 - ACUTE KIDNEY FAILURE, UNSPECIFIED Status: Acute (13) Lumbar spondylosis Code(s): M47.816 - SPONDYLOSIS W/O MYELOPATHY OR RADICULOPATHY, LUMBAR REGION Status: Acute - Plan Continue antibiotics. Continue bronchodilators and steroid. decreased steroid due hyperglycemia increase insulin dose to get better glycemic control Start neurontin for presumed Diabetic neuropathy PT to mitesh Follow urine and blood cultures
[2019-01-12] MEDS: Alogliptin 25 MG TAB PO SCH (20:24)
[2019-01-12] MEDS: Aspirin 81 mg Enteric Coated Tablet PO SCH (20:24)
[2019-01-12] MEDS: Atorvastatin Calcium 10 MG TAB PO SCH (20:24)
[2019-01-12] MEDS: Lisinopril 20 MG TAB PO SCH (20:34)
[2019-01-13] MEDS: HumaLOG 300 UNITS/3 ML VIAL SC PRN ×3 (04:57→18:05)
[2019-01-13] MEDS: Mometasone/Formoterol 120 PUFF INHALER INH SCH ×2 (07:17→18:56)
[2019-01-13] MEDS: Amlodipine 5 MG TAB PO SCH (09:21)
[2019-01-13] MEDS: methylPREDNISolone Sod Succ 40 MG VIAL IVP SCH (09:24)
[2019-01-13] MEDS: FLUoxetine HCl 20 MG CAP PO SCH (09:24)
[2019-01-13] MEDS: Enoxaparin Sodium 40 MG/0.4 ML SYRINGE SC SCH (09:24)
[2019-01-13] MEDS: Gabapentin 300 MG CAP PO SCH ×3 (09:24→20:22)
[2019-01-13] MEDS: cefTRIAXone\\ROCEPHIN 2 GM in Sodium Chloride 0.9% 100 ML IVPB SCH (12:07)
--- NOTE | 2019-01-13 19:38 | PDOC.HOSPP ---
- Subjective Encounter Date: 01/13/19 Encounter Time: 19:00 Subjective: The patient reports feeling drained and weak overall. She states that she got the flu shot on Tuesday, then 2 pm she got dry heaves, fevers, chills, feels weak. She states that she can hardly walk and her legs feel like jelly while walking and she has burning pain in her legs. She did have some of these symptoms prior to flu shot but it got worst after flu shot. This has improved with gabapentin. She had some dysuria which has now resolved She reports history of ruptured S1 disc 22 years ago and had surgery for that. - Objective Vital Signs & Weight: Vital Signs (12 hours) Pulse Pulse Pulse Pulse Resp BP BP 01/13/19 18:55 111 H 22 H 01/13/19 14:30 85 20 01/13/19 14:05 94 93 80 164/70 H 01/13/19 10:10 86 16 01/13/19 09:21 78 146/71 H 01/13/19 08:00 BP Pulse Ox Pulse Ox Pulse Ox 01/13/19 18:55 97 01/13/19 14:30 95 01/13/19 14:05 146/106 H 94 L 93 L 01/13/19 10:10 98 01/13/19 09:21 01/13/19 08:00 97 Weight Weight 198 lb 6.656 oz Result Diagrams: 01/12/19 06:23 01/12/19 06:23 Additional Labs: Accuchecks 01/13/19 01/13/19 01/13/19 16:08 11:16 04:37 POC Glucose 394 H 242 H 277 H 01/13/19 01/12/19 00:45 19:41 POC Glucose 273 H 260 H Hospitalist ROS - Review of Systems Constitutional: denies: chills, sweats Eyes: denies: pain, vision change - Medication Medications: Active Medications Generic Name Dose Route Start Last Admin Trade Name Freq PRN Reason Stop Dose Admin Albuterol/Ipratropium 3 ml 01/11/19 14:30 01/13/19 18:55 Duoneb NEB 3 ml [id number] DELIO Administration Alogliptin Benzoate 25 mg 01/11/19 21:00 01/12/19 20:24 Alogliptin PO 25 mg HS DELIO Administration Amlodipine Besylate 2.5 mg 01/11/19 09:00 01/13/19 09:21 Norvasc PO 2.5 mg DAILY DELIO Administration Aspirin 81 mg 01/11/19 21:00 01/12/19 20:24 Ecotrin PO 81 mg HS DELIO Administration Atorvastatin Calcium 10 mg 01/11/19 21:00 01/12/19 20:24 Lipitor PO 10 mg HS DELIO Administration Diltiazem HCl 360 mg 01/11/19 21:00 01/12/19 20:24 Cardizem Cd PO 360 mg HS DELIO Administration Enoxaparin Sodium 40 mg 01/11/19 09:00 01/13/19 09:24 Lovenox SC 40 mg 0900 DELIO Administration Fluoxetine HCl 40 mg 01/11/19 09:00 01/13/19 09:24 Prozac PO 40 mg DAILY DELIO Administration Gabapentin 300 mg 01/11/19 09:00 01/13/19 15:25 Neurontin PO 300 mg TID DELIO Administration Glipizide 5 mg 01/11/19 09:00 01/13/19 09:24 Glucotrol Xl PO 5 mg DAILY DELIO Administration Ceftriaxone Sodium 2 gm/ 100 mls @ 200 mls/hr 01/11/19 11:00 01/13/19 12:07 Sodium Chloride IVPB 100 mls Q24HR DELIO Administration Insulin Human Lispro 0 units 01/12/19 15:11 01/13/19 18:05 Humalog SC 13 unit .AGGRESSIVE SLIDING PRN Administration Aggressive Correctional Scale Lisinopril 40 mg 01/11/19 21:00 01/12/19 20:34 Zestril PO 40 mg HS DELIO Administration Methylprednisolone Sodium Succinate 40 mg 01/12/19 09:00 01/13/19 09:24 Solu-Medrol IVP 40 mg DAILY DELIO Administration Mirabegron 50 mg 01/11/19 21:00 01/12/19 20:34 Myrbetriq Er PO 50 mg HS DELIO Administration Mometasone Furoate/Formoterol Fumar 2 puff 01/11/19 18:30 01/13/19 18:56 Dulera 200 Mcg/5 Mcg Inhaler INH 2 puff BID-RT DELIO Administration Pantoprazole Sodium 40 mg 01/11/19 09:00 01/13/19 09:24 Protonix PO 40 mg DAILY DELIO Administration Sodium Chloride 10 ml 10/10/19 09:00 01/13/19 09:25 Flush - Normal Saline IVF 10 ml Q12HR DELIO Administration - Exam Eye: PERRL, anicteric sclera ENT: normocephalic atraumatic, no oropharyngeal lesions Neck: supple, symmetric, no JVD Heart: RRR, no murmur, no gallops Respiratory: CTAB, no wheezes, no rales Gastrointestinal: soft, non-tender, non-distended Extremities: no cyanosis, no clubbing, no edema Skin: normal turgor, no lesions Neurological: cranial nerve grossly intact, normal sensation to touch Neurological - other findings: Dougie LE weakness, 3/5 LE strength. Upgoing toe left, downgoing right. Musculoskeletal: normal tone, normal strength, no muscle wasting Musculoskeletal - other findings: 2/2 patellar reflex bilaterally Psychiatric: normal affect, normal behavior, A&O x 3, oriented to person Hosp A/P (1) E coli bacteremia Code(s): R78.81 - BACTEREMIA Status: Acute (2) E. coli UTI Code(s): N39.0 - URINARY TRACT INFECTION, SITE NOT SPECIFIED; B96.20 - UNSP ESCHERICHIA COLI THE CAUSE OF DISEASES CLASSD ELSWHR Status: Acute (3) Sepsis Code(s): A41.9 - SEPSIS, UNSPECIFIED ORGANISM Status: Acute (4) Gait instability Code(s): R26.81 - UNSTEADINESS ON FEET Status: Acute (5) Lumbar spondylosis Code(s): M47.816 - SPONDYLOSIS W/O MYELOPATHY OR RADICULOPATHY, LUMBAR REGION Status: Acute (6) Leukocytosis Code(s): D72.829 - ELEVATED WHITE BLOOD CELL COUNT, UNSPECIFIED Status: Acute (7) Anemia Code(s): D64.9 - ANEMIA, UNSPECIFIED Status: Acute - Plan PT/OT, out of bed/ambulate CT head: no acute disease Chest X ray: mild cardiomegaly Lumbar spine MRI: multilevel foraminal stenosis with slight indentation of thecal sac at L5-S1 This is 73 year old female who presented with fevers chills, lower extremity weakness after getting flu shot on Tuesday, admitted for sepsis from E coli bacteremia Sepsis secondary to E coli UTI and E coli bacteremia Leukocytosis - on ceftriaxone day 3, likely need to continue for 14 days. Repeat blood cultures to assess clearance - WBC improving to 12 Lower extremity weakness - likely from spinal stenosis vs diabetic neuropathy - MRI lumbar spine showed multilevel foraminal stenosis. Has difficulty ambulating with flaccidity while walking. Will consult neurosurgery - no incontinence noted - continue PT Anemia - check B12 level - Hb 8.5 Constipation - add laxatives Code status: DNR DVT prophylaxis: lovenox
[2019-01-13] MEDS: Alogliptin 25 MG TAB PO SCH (20:21)
[2019-01-13] MEDS: Aspirin 81 mg Enteric Coated Tablet PO SCH (20:21)
[2019-01-13] MEDS: Atorvastatin Calcium 10 MG TAB PO SCH (20:22)
[2019-01-13] MEDS: Lisinopril 20 MG TAB PO SCH (20:31)
[2019-01-14] MEDS: HumaLOG 300 UNITS/3 ML VIAL SC PRN ×4 (06:03→21:36)
[2019-01-14] MEDS: Mometasone/Formoterol 120 PUFF INHALER INH SCH ×2 (07:02→18:26)
[2019-01-14 07:47] LABS: Hemoglobin 8.8 g/dL (12.0-16.0); Mean Corpuscular HGB CONC 31.8 g/dL (32.0-36.0); Mean Corpuscular Hemoglobin 26.1 pg (27.0-31.0); Mean Platelet Volume 7.7 fL (7.4-10.4); Platelet Count 314 thou/uL (130-400); RBC Distribution Width 15.9 % (11.5-14.5); Red Blood Cell (RBC) Count 3.36 mill/uL (4.20-5.40); White Blood Cell (WBC) Count 9.9 thou/uL (4.8-10.8)
[2019-01-14 08:06] LABS: Anion Gap 10 mmol/L (10-20); BUN (Urea Nitrogen) 17 mg/dL (9.8-20.1); Calc. Creatinine Clearance 103 mL/min (70-130); Calcium 8.9 mg/dL (7.8-10.44); Carbon Dioxide 32 mmol/L (23-31); Chloride 98 mmol/L (98-107); Estimated GFR-MDRD 82; Glucose 186 mg/dL (83-110); Sodium 136 mmol/L (136-145)
[2019-01-14] MEDS: Amlodipine 5 MG TAB PO SCH (09:52)
[2019-01-14] MEDS: methylPREDNISolone Sod Succ 40 MG VIAL IVP SCH (09:52)
[2019-01-14] MEDS: FLUoxetine HCl 20 MG CAP PO SCH (09:53)
[2019-01-14] MEDS: Gabapentin 300 MG CAP PO SCH ×3 (09:53→21:19)
[2019-01-14] MEDS: Polyethylene Glycol 3350 17 GM Packet PO SCH (09:54)
[2019-01-14] MEDS: Enoxaparin Sodium 40 MG/0.4 ML SYRINGE SC SCH (09:54)
[2019-01-14] MEDS ORDERED: Insulin Glargine 10 UNITS in Pre-Filled Syringe 1 EACH SC SCH (10:00)
[2019-01-14] MEDS: cefTRIAXone\\ROCEPHIN 2 GM in Sodium Chloride 0.9% 100 ML IVPB SCH (11:56)
--- NOTE | 2019-01-14 20:24 | PDOC.HOSPP ---
- Subjective Encounter Date: 01/14/19 Encounter Time: 10:00 Subjective: She is doing well. Continues to have some difficulty walking with some wobbling feelings in legs. No urine or fecal incontinence. Less burning than before. She denies abdominal pain or dysuria. She reports having a cough that has subsided - Objective Vital Signs & Weight: Vital Signs (12 hours) Temp Pulse Resp BP BP Pulse Ox 01/14/19 19:51 97.7 F 95 16 173/63 H 98 01/14/19 18:25 98 16 98 01/14/19 14:49 89 16 98 01/14/19 10:49 80 16 97 01/14/19 09:52 95 166/66 H Weight Weight 198 lb 6.656 oz Result Diagrams: 01/14/19 06:58 01/14/19 06:58 Additional Labs: Accuchecks 01/14/19 01/14/19 01/14/19 19:27 16:53 11:23 POC Glucose 343 H 374 H 233 H 01/14/19 01/13/19 05:56 20:31 POC Glucose 220 H 261 H Hospitalist ROS - Review of Systems Constitutional: denies: chills, sweats - Medication Medications: Active Medications Generic Name Dose Route Start Last Admin Trade Name Freq PRN Reason Stop Dose Admin Albuterol/Ipratropium 3 ml 01/11/19 14:30 01/14/19 18:25 Duoneb NEB 3 ml [id number] DELIO Administration Alogliptin Benzoate 25 mg 01/11/19 21:00 01/13/19 20:21 Alogliptin PO 25 mg HS DELIO Administration Amlodipine Besylate 2.5 mg 01/11/19 09:00 01/14/19 09:52 Norvasc PO 2.5 mg DAILY DELIO Administration Aspirin 81 mg 01/11/19 21:00 01/13/19 20:21 Ecotrin PO 81 mg HS DELIO Administration Atorvastatin Calcium 10 mg 01/11/19 21:00 01/13/19 20:22 Lipitor PO 10 mg HS DELIO Administration Diltiazem HCl 360 mg 01/11/19 21:00 01/13/19 20:21 Cardizem Cd PO 360 mg HS DELIO Administration Enoxaparin Sodium 40 mg 01/11/19 09:00 01/14/19 09:54 Lovenox SC 40 mg 0900 DELIO Administration Fluoxetine HCl 40 mg 01/11/19 09:00 01/14/19 09:53 Prozac PO 40 mg DAILY DELIO Administration Gabapentin 300 mg 01/11/19 09:00 01/14/19 14:39 Neurontin PO 300 mg TID DELIO Administration Ceftriaxone Sodium 2 gm/ 100 mls @ 200 mls/hr 01/11/19 11:00 01/14/19 11:56 Sodium Chloride IVPB 100 mls Q24HR DELIO Administration Insulin Human Lispro 0 units 01/12/19 15:11 01/14/19 17:13 Humalog SC 13 unit .AGGRESSIVE SLIDING PRN Administration Aggressive Correctional Scale Lisinopril 40 mg 01/11/19 21:00 01/13/19 20:31 Zestril PO 40 mg HS DELIO Administration Methylprednisolone Sodium Succinate 40 mg 01/12/19 09:00 01/14/19 09:52 Solu-Medrol IVP 40 mg DAILY DELIO Administration Mirabegron 50 mg 01/11/19 21:00 01/13/19 20:27 Myrbetriq Er PO 50 mg HS DELIO Administration Mometasone Furoate/Formoterol Fumar 2 puff 01/11/19 18:30 01/14/19 18:26 Dulera 200 Mcg/5 Mcg Inhaler INH 2 puff BID-RT DELIO Administration Pantoprazole Sodium 40 mg 01/11/19 09:00 01/14/19 09:53 Protonix PO 40 mg DAILY DELIO Administration Polyethylene Glycol 17 gm 01/14/19 09:00 01/14/19 09:54 Miralax PO Not Given DAILY [facility] Sodium Chloride 10 ml 01/11/19 09:00 01/14/19 09:55 Flush - Normal Saline IVF 10 ml Q12HR DELIO Administration - Exam Eye: PERRL, anicteric sclera ENT: normocephalic atraumatic, no oropharyngeal lesions Neck: supple, no JVD Heart: RRR, no murmur, no gallops, no rubs Respiratory: CTAB, no wheezes, no rales, no ronchi Gastrointestinal: soft, non-tender, non-distended Extremities: no cyanosis, no clubbing, no edema Skin: normal turgor, no lesions, no rashes Neurological: cranial nerve grossly intact, no focal deficits, no new deficit Hosp A/P (1) E coli bacteremia Code(s): R78.81 - BACTEREMIA Status: Acute (2) E. coli UTI Code(s): N39.0 - URINARY TRACT INFECTION, SITE NOT SPECIFIED; B96.20 - UNSP ESCHERICHIA COLI THE CAUSE OF DISEASES CLASSD ELSWHR Status: Acute (3) Sepsis Code(s): A41.9 - SEPSIS, UNSPECIFIED ORGANISM Status: Acute (4) Gait instability Code(s): R26.81 - UNSTEADINESS ON FEET Status: Acute (5) Lumbar spondylosis Code(s): M47.816 - SPONDYLOSIS W/O MYELOPATHY OR RADICULOPATHY, LUMBAR REGION Status: Acute (6) Leukocytosis Code(s): D72.829 - ELEVATED WHITE BLOOD CELL COUNT, UNSPECIFIED Status: Acute (7) Anemia Code(s): D64.9 - ANEMIA, UNSPECIFIED Status: Acute - Plan CT head: no acute disease Chest X ray: mild cardiomegaly Lumbar spine MRI: multilevel foraminal stenosis with slight indentation of thecal sac at L5-S1 This is 73 year old female who presented with fevers chills, lower extremity weakness after getting flu shot on Tuesday, admitted for sepsis from E coli bacteremia Sepsis secondary to E coli UTI and E coli bacteremia Leukocytosis - on ceftriaxone day 4. Switch to cipro for two weeks. REpeat blood cultures negative - WBC improved to 9 Lower extremity weakness - likely from spinal stenosis vs diabetic neuropathy - MRI lumbar spine showed multilevel foraminal stenosis. Has difficulty ambulating with flaccidity while walking. Will consult neurosurgery as to whether this spinal stenosis is contributing. Patient more interested in conservative management - no incontinence noted - continue PT Anemia - check B12 level - Hb 8.5 Constipation - add laxatives Code status: DNR DVT prophylaxis: lovenox
[2019-01-14] MEDS: Alogliptin 25 MG TAB PO SCH (21:17)
[2019-01-14] MEDS: Aspirin 81 mg Enteric Coated Tablet PO SCH (21:17)
[2019-01-14] MEDS: Atorvastatin Calcium 10 MG TAB PO SCH (21:19)
[2019-01-14] MEDS: Lisinopril 20 MG TAB PO SCH (21:34)
[2019-01-14] MEDS: Ciprofloxacin 500 MG TAB PO SCH (21:35)
[2019-01-14] MEDS ORDERED: Polyethylene Glycol 3350 17 GM Packet PO SCH (22:00)
[2019-01-15] MEDS: Ciprofloxacin 500 MG TAB PO SCH ×2 (06:20→21:06)
[2019-01-15] MEDS: HumaLOG 300 UNITS/3 ML VIAL SC PRN ×4 (06:21→20:05)
[2019-01-15] MEDS: Mometasone/Formoterol 120 PUFF INHALER INH SCH ×2 (07:04→18:18)
[2019-01-15] MEDS: Amlodipine 5 MG TAB PO SCH (08:39)
[2019-01-15] MEDS: Enoxaparin Sodium 40 MG/0.4 ML SYRINGE SC SCH (08:40)
[2019-01-15] MEDS: methylPREDNISolone Sod Succ 40 MG VIAL IVP SCH (08:40)
[2019-01-15] MEDS: FLUoxetine HCl 20 MG CAP PO SCH (08:40)
[2019-01-15] MEDS: Gabapentin 300 MG CAP PO SCH ×3 (08:40→20:00)
[2019-01-15] MEDS: Polyethylene Glycol 3350 17 GM Packet PO SCH (08:40)
[2019-01-15] MEDS: Insulin Glargine 10 UNITS in Pre-Filled Syringe 1 EACH SC SCH (08:41)
--- NOTE | 2019-01-15 17:19 | MRI ---
MRI THORACIC SPINE WITHOUT CONTRAST: Date: 01/15/19 INDICATION: Back pain. Bilateral leg weakness. FINDINGS: There is mild anterior wedging of the T9 vertebra which results in loss of anterior height of approxi mately 40-50%. Anterior osteophytes at this level suggest old compression. There is no evidence of ed randell within this vertebra. The other thoracic vertebra maintain normal height. Vertebral body signal i s normal throughout. Axial T2 images show small disc osteophyte centrally at the T8-T9 level flattening the anterior theca l sac without significant cord impingement. Small diffuse disc bulge at T9-T10 flattens the thecal sac and effaces the anterior subarachnoid spac e. No significant cord impingement. Posterior facet hypertrophy at T10-T11 flattens the posterior the rimma sac. Mild asymmetric disc bulge on the left at T11-T12 flattens the anterior thecal sac without c entral canal stenosis. Thoracic cord signal is normal. IMPRESSION: 1. Anterior wedge compression at T9 which appears old as described above. 2. There are disc abnormalities at T8-T9, T9-T10, and posterior hypertrophic changes at T10-T11 as d escribed above. POS: [facility]
--- NOTE | 2019-01-15 18:37 | PDOC.HOSPP ---
- Subjective Encounter Date: 01/15/19 Encounter Time: 18:00 Subjective: The patient walked with a walker today. Still hda some pain shooting down in her legs but was able to walk around the room. She is not interested in going to a rehab, wants to go home with her daughter. She denies cough, shortness of breath. - Objective Vital Signs & Weight: Vital Signs (12 hours) Temp Pulse Resp BP BP BP Pulse Ox 01/15/19 18:20 102 H 18 97 01/15/19 18:18 102 H 18 97 01/15/19 15:49 98.9 F 87 16 148/66 H 01/15/19 14:50 88 16 97 01/15/19 12:30 83 16 98 01/15/19 11:56 98.2 F 77 16 155/75 H 95 01/15/19 08:54 97 01/15/19 08:39 81 137/73 01/15/19 07:23 98.8 F 81 16 137/73 97 01/15/19 06:53 98 01/15/19 06:52 94 16 98 Weight Weight 198 lb 6.656 oz I&O: 01/14/19 01/15/19 01/16/19 06:59 06:59 06:59 Intake Total 720 Output Total 1200 Balance -480 Result Diagrams: 01/14/19 06:58 01/14/19 06:58 Additional Labs: Accuchecks 01/15/19 01/15/19 01/15/19 15:51 12:01 04:18 POC Glucose 440 H 215 H 213 H 01/14/19 19:27 POC Glucose 343 H Hospitalist ROS - Review of Systems ENT: denies: ear pain, ear discharge Respiratory: denies: cough, dry Musculoskeletal: reports: back pain, leg pain - Medication Medications: Active Medications Generic Name Dose Route Start Last Admin Trade Name Freq PRN Reason Stop Dose Admin Albuterol/Ipratropium 3 ml 01/11/19 14:30 01/15/19 18:20 Duoneb NEB 3 ml [id number] DELIO Administration Alogliptin Benzoate 25 mg 01/11/19 21:00 01/14/19 21:17 Alogliptin PO 25 mg HS DELIO Administration Amlodipine Besylate 2.5 mg 01/11/19 09:00 01/15/19 08:39 Norvasc PO 2.5 mg DAILY DELIO Administration Aspirin 81 mg 01/11/19 21:00 01/14/19 21:17 Ecotrin PO 81 mg HS DELIO Administration Atorvastatin Calcium 10 mg 01/11/19 21:00 01/14/19 21:19 Lipitor PO 10 mg HS DELIO Administration Ciprofloxacin 500 mg 01/14/19 22:00 01/15/19 06:20 Cipro PO 500 mg 0600,2200 DELIO Administration Diltiazem HCl 360 mg 01/11/19 21:00 01/14/19 21:18 Cardizem Cd PO 360 mg HS DELIO Administration Enoxaparin Sodium 40 mg 01/11/19 09:00 01/15/19 08:40 Lovenox SC 40 mg 0900 DELIO Administration Fluoxetine HCl 40 mg 01/11/19 09:00 01/15/19 08:40 Prozac PO 40 mg DAILY DELIO Administration Gabapentin 300 mg 01/11/19 09:00 01/15/19 14:39 Neurontin PO 300 mg TID DELIO Administration Insulin Glargine 10 units/ 0.1 mls @ 0 mls/hr 01/15/19 09:00 01/15/19 08:41 Miscellaneous Medication SC 0.1 mls QAM DELIO Administration Insulin Human Lispro 0 units 01/12/19 15:11 01/15/19 17:05 Humalog SC 13 unit .AGGRESSIVE SLIDING PRN Administration Aggressive Correctional Scale Insulin Human Lispro 0 units 01/14/19 20:19 01/14/19 21:36 Humalog SC 4 units .BEDTIME SLIDING SC PRN Administration BEDTIME SLIDING SCALE Protocol Lisinopril 40 mg 01/11/19 21:00 01/14/19 21:34 Zestril PO 40 mg HS DELIO Administration Methylprednisolone Sodium Succinate 40 mg 01/12/19 09:00 01/15/19 08:40 Solu-Medrol IVP 40 mg DAILY DELIO Administration Mirabegron 50 mg 01/11/19 21:00 01/14/19 21:19 Myrbetriq Er PO 50 mg HS DELIO Administration Mometasone Furoate/Formoterol Fumar 2 puff 01/11/19 18:30 01/15/19 18:18 Dulera 200 Mcg/5 Mcg Inhaler INH 2 puff BID-RT DELIO Administration Pantoprazole Sodium 40 mg 01/11/19 09:00 01/15/19 08:39 Protonix PO 40 mg DAILY DELIO Administration Polyethylene Glycol 17 gm 01/14/19 09:00 01/15/19 08:40 Miralax PO 17 gm DAILY DELIO Administration Sodium Chloride 10 ml 01/11/19 09:00 01/15/19 08:41 Flush - Normal Saline IVF 10 ml Q12HR DELIO Administration - Exam General Appearance: NAD, awake alert Eye: PERRL, anicteric sclera ENT: normocephalic atraumatic, no oropharyngeal lesions Neck: supple, symmetric, no JVD Heart: RRR, no murmur, no gallops Respiratory: CTAB, no wheezes, no rales Gastrointestinal: soft, non-tender, non-distended Extremities: no cyanosis, no clubbing, no edema Skin: normal turgor, no lesions, no rashes Neurological: cranial nerve grossly intact, normal sensation to touch, no focal deficits, no new deficit Musculoskeletal: normal strength, no muscle wasting Psychiatric: normal affect, normal behavior, A&O x 3 Hosp A/P (1) E coli bacteremia Code(s): R78.81 - BACTEREMIA Status: Acute (2) E. coli UTI Code(s): N39.0 - URINARY TRACT INFECTION, SITE NOT SPECIFIED; B96.20 - UNSP ESCHERICHIA COLI THE CAUSE OF DISEASES CLASSD ELSWHR Status: Acute (3) Sepsis Code(s): A41.9 - SEPSIS, UNSPECIFIED ORGANISM Status: Acute (4) Gait instability Code(s): R26.81 - UNSTEADINESS ON FEET Status: Acute (5) Lumbar spondylosis Code(s): M47.816 - SPONDYLOSIS W/O MYELOPATHY OR RADICULOPATHY, LUMBAR REGION Status: Acute (6) Leukocytosis Code(s): D72.829 - ELEVATED WHITE BLOOD CELL COUNT, UNSPECIFIED Status: Acute (7) Anemia Code(s): D64.9 - ANEMIA, UNSPECIFIED Status: Acute - Plan CT head: no acute disease Chest X ray: mild cardiomegaly Lumbar spine MRI: multilevel foraminal stenosis with slight indentation of thecal sac at L5-S1 Thoracic spine MRI: anterior wedge compression at T9 which appears old. Disc abnormalities at T8-T9, T9-T10 and posterior hypertrophic changes at T10-T11 This is 73 year old female who presented with fevers chills, lower extremity weakness after getting flu shot on Tuesday, admitted for sepsis from E coli bacteremia Sepsis secondary to E coli UTI and E coli bacteremia Leukocytosis - got ceftriaxone for four days, ciprofloxacin for two weeks total, curently day 5. REpeat blood cultures negative - WBC improved to 9 Lower extremity weakness - likely from spinal stenosis vs diabetic neuropathy - MRI lumbar spine showed multilevel foraminal stenosis. Has difficulty ambulating with flaccidity while walking. NEurosurgery suggested MRI thoracic spine which looks okay. They do not think this is contributing to her weakness. Patient is not interested in surgery either. - no incontinence noted - continue PT Anemia - B12 level yamile - Hb 8.5 Constipation - continue miralax Code status: DNR DVT prophylaxis: lovenox
[2019-01-15 19:35] VITALS: TEMP 98.6
[2019-01-15] MEDS: Lisinopril 20 MG TAB PO SCH (20:00)
[2019-01-15] MEDS: Alogliptin 25 MG TAB PO SCH (20:00)
[2019-01-15] MEDS: Atorvastatin Calcium 10 MG TAB PO SCH (20:00)
[2019-01-15] MEDS: Aspirin 81 mg Enteric Coated Tablet PO SCH (20:00)
[2019-01-16] MEDS: Ciprofloxacin 500 MG TAB PO SCH (05:09)
[2019-01-16] MEDS: HumaLOG 300 UNITS/3 ML VIAL SC PRN ×3 (05:10→17:05)
[2019-01-16 06:06] LABS: Hemoglobin 9.8 g/dL (12.0-16.0); Mean Corpuscular HGB CONC 32.4 g/dL (32.0-36.0); Mean Corpuscular Hemoglobin 26.8 pg (27.0-31.0); Mean Corpuscular Volume 82.7 fL (78.0-98.0); Mean Platelet Volume 7.6 fL (7.4-10.4); Platelet Count 415 thou/uL (130-400); RBC Distribution Width 16.3 % (11.5-14.5); Red Blood Cell (RBC) Count 3.65 mill/uL (4.20-5.40); White Blood Cell (WBC) Count 10.5 thou/uL (4.8-10.8)
[2019-01-16 06:27] LABS: Anion Gap 13 mmol/L (10-20); BUN (Urea Nitrogen) 21 mg/dL (9.8-20.1); Calc. Creatinine Clearance 95 mL/min (70-130); Calcium 8.8 mg/dL (7.8-10.44); Carbon Dioxide 25 mmol/L (23-31); Chloride 99 mmol/L (98-107); Estimated GFR-MDRD 75; Glucose 228 mg/dL (83-110); Potassium 4.1 mmol/L (3.5-5.1); Sodium 133 mmol/L (136-145)
[2019-01-16] MEDS: Mometasone/Formoterol 120 PUFF INHALER INH SCH (06:37)
[2019-01-16] MEDS: FLUoxetine HCl 20 MG CAP PO SCH (08:14)
[2019-01-16] MEDS: Gabapentin 300 MG CAP PO SCH ×2 (08:15→14:32)
[2019-01-16] MEDS: Amlodipine 5 MG TAB PO SCH (08:15)
[2019-01-16] MEDS: methylPREDNISolone Sod Succ 40 MG VIAL IVP SCH (08:17)
[2019-01-16] MEDS: Polyethylene Glycol 3350 17 GM Packet PO SCH (08:19)
[2019-01-16] MEDS: Insulin Glargine 10 UNITS in Pre-Filled Syringe 1 EACH SC SCH (08:20)
[2019-01-16] MEDS: Enoxaparin Sodium 40 MG/0.4 ML SYRINGE SC SCH (08:20)
[2019-01-16 08:23] VITALS: BP 153/69
--- NOTE | 2019-01-16 11:39 | PQF ---
DATE: 01-16-19 ATTN: DR. BECKY GARCIA Please exercise your independent, professional judgment in responding to the clarification form. Clinical indicators are provided on the bottom of this form for your review Diagnosis: ACUTE SEPSIS Present on Admission (POA): [ X] Yes [ ] No [ ] Unable to determine Coding guidelines require hospitals to identify whether a diagnosis was present on admission (POA) or not. To accurately assign the appropriate POA indicator, this information must be clearly documented within the medical record. CLINICAL INDICATORS - SIGNS / SYMPTOMS / LABS: H&P 01-11-19: ACUTE RESPIRATORY FAILURE, COPD EXACERBATION, LUMBAR SPINAL STENOSIS, DM 2, HTN, CAROL, DYSLIPIDEMIA, ANEMIA PN 01-12-19: E COLI BACTEREMIA, ACUTE SEPSIS, ACUTE AND CHRONIC RESPIRATORY FAILURE WITH HYPOXIA, COPD EXAC, DM 2 WBC: 01-10-19: 15.2 01-12-19: 12.4 RR: ER 01-11-19: 22, 22 PULSE ER 01-11-19: 109 01-13-19: 111 RISK FACTORS: H&P: FLU SHOT 6 DAYS AGO, FEVER, CHILLS, HX OF COPD FROM TOBACCO, DM 2, GERD, RLS TREATMENT: ER 01-11-19: LEVAQUIN IV, IVF NS (This form is maintained as a part of the permanent medical record) 2014 [email or web address] All Rights Reserved [email or web address] Office: [phone] DANIE
--- NOTE | 2019-01-17 04:38 | DIS ---
DATE OF ADMISSION: 01/11/2019 DATE OF DISCHARGE: 01/16/2019 ADMITTING DIAGNOSES: 1. Acute respiratory failure secondary to chronic obstructive pulmonary disease exacerbation. 2. Lumbar spinal stenosis. DISCHARGE DIAGNOSES: 1. Sepsis secondary to Escherichia coli urinary tract infection and Escherichia coli bacteremia. 2. Acute on chronic hypoxic respiratory failure secondary to chronic obstructive pulmonary disease exacerbation. 3. Lower extremity weakness secondary to spinal stenosis versus diabetic neuropathy. 4. Anemia. 5. Constipation. SECONDARY DISCHARGE DIAGNOSES: 1. Chronic obstructive pulmonary disease. 2. Depression. 3. Diabetes. 4. Allergies. 5. Vertigo. 6. Hyperlipidemia. 7. Gastroesophageal reflux disease. 8. Restless legs syndrome. CONSULTATIONS: None. PROCEDURES: No major interventions. HISTORY AND HOSPITAL COURSE: Sepsis secondary to Escherichia coli urinary tract infection and Escherichia coli bacteremia: The patient presented with significant fever, shortness of breath, cough and chills after receiving a flu shot. The patient's blood cultures on admission were positive for Escherichia coli in 2/2 bottles. Her urine culture was also positive for Escherichia coli. The patient 's chest x-ray on admission showed no evidence of pneumonia. The patient was initially started on ceftriaxone IV and received 4 days of this. She was then switched to ciprofloxacin on 01/15. Currently, she is on day 5 of antibiotics. Repeat blood cultures on 01/13 were negative. The patient will need to continue ciprofloxacin for a total of 10 more days to complete 14-day course of antibiotics. Acute on chronic hypoxic respiratory failure secondary to COPD exacerbation: The patient on admission had significant shortness of breath, cough, and wheezing on admission. Chest x-ray showed no evidence of pneumonia. The patient received prednisone IV for total of 5 days. She was also continued on supplemental O2 nebulizers q.6 hours and was also treated with ceftriaxone for potential infection. Patient completed course of antibiotics and steroids and is back on her chronic 2L nasal cannula. Lower extremity weakness: The patient reported that after receiving her flu shot, she felt that her legs felt flaccid while walking and reported a burning pain in both of her legs. MRI of her lumbar spine showed multilevel foraminal stenosis, anterior wedge compression at T9 and slight indentation of her thecal sac at L5-S1. Neurosurgery was contacted; however, they did not think that her MRI findings were contributing to her weakness. The patient did not have any bowel or bladder incontinence and stated that she was not interested in having surgery because she has had surgery in the past. Physical Therapy saw her and recommended that the patient go to a rehab; however, the patient declined. Therefore, she was discharged home. The patient was prescribed a walker with Medicare per daughter's request due to difficulty lifting her mother which I thought was appropriate. She will continue outpatient PT. Anemia: The patient had hemoglobin of 9.8/30.1 on the day of discharge. Her vitamin B12 levels were normal. She should have a repeat CBC as an outpatient with her PCP. Type 2 diabetes: The patient will resume her outpatient glipizide and Januvia. GERD: continue Nexium. COPD: continue Symbicort and albuterol nebulizer Hyperlipidemia: continue pravastatin. Hypertension: continue quinapril, diltiazem, amlodipine T The patient will also continue her home aspirin. PERTINENT IMAGIN. CT brain: Showed no acute intracranial abnormalities. 2. Chest x-ray, 01/10: Borderline high side with chronic-appearing lung changes. 3. Pelvic x-ray: no acute osseous abnormality. 4. 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 Refer to full MRI report for details. 5. Thoracic spine MRI: Shows anterior wedge compression at T9, which appears old and disk abnormalities at T8-T9, T9-T10, and posterior hypertrophic changes at T10-T11. PHYSICAL EXAMINATION: On day of discharge; VITAL SIGNS: Temperature 98.6, heart rate 86, respiratory rate 16, O2 saturation 98% on 2L nasal cannula. GENERAL: The patient is sitting up in the chair, alert, oriented x3 with good sense of humor. She is on 2L of oxygen. CVS: Regular rate and rhythm, no murmurs, rubs, or gallops. LUNGS: Clear to auscultation bilaterally. ABDOMEN: Positive bowel sounds, soft, nontender, nondistended. EXTREMITIES: The patient has 5/5 strength to plantar flexion of both lower extremities. She had full range of motion of her lower extremities and ambulating with a walker. PERTINENT LABORATORY DATA: White blood cell count was 15.2 on 01/10 and decreased to 10.5 on 01/16. Hemoglobin was 9.8/30.1 on 01/16, platelet count was elevated at 415. BMP showed a sodium of 133 on the day of discharge. Blood sugars ranged from 253 to 392 on the day of discharge; however, the patient was receiving IV steroids. Therefore, this will likely go down with discontinuation of steroids. CONDITION UPON DISCHARGE: The patient is alert and oriented, and tolerating a regular diet. She is ambulating with a walker. She requires outpatient PT and OT. ACTIVITY: As tolerated. DIET: regular diet FOLLOWUP: PCP in 1 week. She should have a repeat CBC and BMP as an outpatient. Follow up for anemia and hyponatremia. CODE STATUS: DNR/DNI. MEDICATIONS AT DISCHARGE: 1. Albuterol 2.5 mg nebulizer p.r.n. 2. Amlodipine 2.5 mg p.o. daily. 3. Aspirin 81 mg p.o. at bedtime. 4. Symbicort 2 puffs inhalation b.i.d. 5. Ciprofloxacin 500 mg p.o. b.i.d. for 19 tablets. 6. Diltiazem 180 mg 2 capsules p.o. at bedtime. 7. Nexium 40 mg p.o. q.a.m. 8. Fluoxetine 40 mg p.o. daily. 9. Gabapentin 300 mg p.o. t.i.d. 10. Glipizide 5 mg p.o. daily. 11. Levocetirizine 5 mg p.o. at bedtime. 12. Meclizine 25 mg p.o. at bedtime. 13. Mirabegron 50 mg p.o. at bedtime. 14. Pravastatin 40 mg p.o. at bedtime. 15. Quinapril 40 mg p.o. at bedtime. 16. Januvia 100 mg p.o. at bedtime. Job ID: [id number] [facility]
== END 2019-01-16 17:22 | disposition home or self-care (01) | DRG 871 ==
LOC: SCSER 11:22 → T4-A 19:34 → OBSVTOIN 01-11 07:53
PROVIDERS: ADMIT Family Medicine; ATTEND Family Medicine
DX: A41.51 Sepsis due to Escherichia coli [E. coli] (principal); J96.21 Acute and chronic respiratory failure with hypoxia; N17.9 Acute kidney failure, unspecified; N39.0 Urinary tract infection, site not specified; Z66 Do not resuscitate; K21.9 Gastro-esophageal reflux disease without esophagitis; E78.5 Hyperlipidemia, unspecified; E78.00 Pure hypercholesterolemia, unspecified; I10 Essential (primary) hypertension; J43.9 Emphysema, unspecified; F32.9 Major depressive disorder, single episode, unspecified; G25.81 Restless legs syndrome; M48.061 Spinal stenosis, lumbar region without neurogenic claudication; D64.9 Anemia, unspecified; R29.6 Repeated falls; M47.816 Spondylosis without myelopathy or radiculopathy, lumbar region; E11.40 Type 2 diabetes mellitus with diabetic neuropathy, unspecified; K59.00 Constipation, unspecified; Z87.891 Personal history of nicotine dependence; Z90.49 Acquired absence of other specified parts of digestive tract; Z88.5 Allergy status to narcotic agent; Z79.82 Long term (current) use of aspirin; Z79.51 Long term (current) use of inhaled steroids; Z79.899 Other long term (current) drug therapy; Z79.84 Long term (current) use of oral hypoglycemic drugs; Z86.11 Personal history of tuberculosis; Z90.710 Acquired absence of both cervix and uterus; Z88.8 Allergy status to other drugs, medicaments and biological substances; E11.65 Type 2 diabetes mellitus with hyperglycemia; R26.81 Unsteadiness on feet; B96.20 Unspecified Escherichia coli [E. coli] as the cause of diseases classified elsewhere
CPT/HCPCS: 36415; 36416; 51701; 70450; 71045; 72146; 72148; 72170; 80048; 80053; 81003; 81015; 82607; 83605; 84484; 85025; 85027; 87040; 87077; 87086; 87149; 87186; 93005; 94640; 94760; 96361; 96365; 96366; 96375; A4353; J0456; J0696; J1650; J1815; J1956; J2920; J2930; J3490; J7050; J7611; J7620

== ENCOUNTER 2019-08-08 10:28 | Outpatient (CLI) | payer MEDICARE, MEDICAID ==
--- NOTE | 2019-08-08 12:20 | RAD ---
RADIOGRAPH CHEST 2 VIEWS: DATE: 08/08/2019 HISTORY: 74-year-old female with dyspnea. Follow-up COPD. FINDINGS: There is hyperinflation of the lungs, consistent with COPD. There is no evidence of air space densit y, pneumothorax, or pulmonary edema. There is no cardiomegaly or pleural effusion. IMPRESSION: 1. No acute cardiopulmonary findings. 2. Emphysema. carol [] POS: JIN
[2019-08-08 14:13] LABS: #Basophils 0.2 thou/uL (0.0-0.2); #Eosinphils 0.3 thou/uL (0.0-0.7); #Lymphocytes 2.7 thou/uL (1.20-3.40); #Neutrophils 8.5 thou/uL (1.40-6.50); %Basophils 1.3 % (0.0-1.0); %Eosinophils 2.6 % (0.0-10.0); %Monocytes 8.3 % (0.0-10.0); %Neutrophils 66.8 % (42.0-75.0); Mean Corpuscular HGB CONC 31.3 g/dL (32.0-36.0); Mean Corpuscular Hemoglobin 26.3 pg (27.0-31.0); Mean Corpuscular Volume 84.2 fL (78.0-98.0); Platelet Count 328 thou/uL (130-400); RBC Distribution Width 16.4 % (11.5-14.5); Red Blood Cell (RBC) Count 4.17 mill/uL (4.20-5.40); White Blood Cell (WBC) Count 12.7 thou/uL (4.8-10.8)
[2019-08-08 14:26] LABS: Hemoglobin A1c 7.5 % (4.0-6.0)
[2019-08-08 14:39] LABS: ALT (SGPT) 12 U/L (8-55); AST (SGOT) 9 U/L (5-34); Albumin 3.9 g/dL (3.4-4.8); Alkaline Phosphatase 68 U/L (40-110); Anion Gap 13 mmol/L (10-20); BUN (Urea Nitrogen) 17 mg/dL (9.8-20.1); Bilirubin, Total 0.4 mg/dL (0.2-1.2); Calc. Creatinine Clearance 0 mL/min (70-130); Calcium 9.2 mg/dL (7.8-10.44); Carbon Dioxide 28 mmol/L (23-31); Cardiac Risk 2.1 (Less than 4.5); Chloride 97 mmol/L (98-107); Cholesterol 153 mg/dl (< 200 Desired); Estimated GFR-MDRD 76; Glucose 156 mg/dL (83-110); HDL Cholesterol 74 mg/dL (>60 Neg Risk); LDL Cholesterol, Calculated 52 mg/dL; Potassium 4.6 mmol/L (3.5-5.1); Protein, Total 5.9 g/dL (6.0-8.3); Sodium 133 mmol/L (136-145); Triglycerides 135 mg/dL (Less than 150)
[2019-08-08 14:51] LABS: Bilirubin Negative (Negative); Blood, Urine 1+ (Negative); Clarity Turbid (Clear); Glucose, Urine (Dipstick) 70 mg/dL (Negative); Leukocyte 500 Leu/uL (Negative); Nitrite Negative (Negative); Protein, Urine (Dipstick) 30 mg/dL (Neg-Trace); Renal Epithelial 0-3 HPF (None Seen); Transitional Epithelial 0-3 HPF (None Seen); Urobilinogen Normal mg/dL (Less than 2); WBC/HPF 21-50 HPF (0-3)
[2019-08-08 14:52] LABS: Bacteria/HPF 1+ HPF (None Seen)
== END 2019-08-08 10:29 | disposition home or self-care (01) ==
LOC: SCSRAD 10:28
PROVIDERS: ATTEND Family Medicine
DX: R30.0 Dysuria (principal); E11.49 Type 2 diabetes mellitus with other diabetic neurological complication; J43.9 Emphysema, unspecified
CPT/HCPCS: 36415; 71046; 80053; 80061; 81001; 83036; 85025; 87086

== ENCOUNTER 2019-10-14 07:13 | Emergency (ER) | payer MEDICARE, OTHER ==
[2019-10-14 07:42] LABS: #Basophils 0.1 thou/uL (0.0-0.2); #Eosinphils 0.2 thou/uL (0.0-0.7); #Lymphocytes 1.5 thou/uL (1.20-3.40); %Basophils 1.3 % (0.0-1.0); %Eosinophils 2.2 % (0.0-10.0); %Lymphocytes 16.7 % (21.0-51.0); %Monocytes 11.6 % (0.0-10.0); %Neutrophils 68.1 % (42.0-75.0); Hemoglobin 10.5 g/dL (12.0-16.0); Mean Corpuscular HGB CONC 31.6 g/dL (32.0-36.0); Mean Corpuscular Hemoglobin 26.9 pg (27.0-31.0); Mean Corpuscular Volume 85.3 fL (78.0-98.0); Mean Platelet Volume 7.8 fL (7.4-10.4); Platelet Count 265 thou/uL (130-400); Red Blood Cell (RBC) Count 3.88 mill/uL (4.20-5.40); White Blood Cell (WBC) Count 8.8 thou/uL (4.8-10.8)
[2019-10-14] MEDS ORDERED: methylPREDNISolone Sod Succ/PF 125 MG/2 ML VIAL ONE (07:53)
[2019-10-14] MEDS ORDERED: Albuterol 200 PUFF (6.7GM INHALER) ONE (07:55)
[2019-10-14 08:03] LABS: ALT (SGPT) 13 U/L (8-55); AST (SGOT) 11 U/L (5-34); Albumin 3.6 g/dL (3.4-4.8); Alkaline Phosphatase 63 U/L (40-110); Anion Gap 12 mmol/L (10-20); BUN (Urea Nitrogen) 15 mg/dL (9.8-20.1); Bilirubin, Total 0.2 mg/dL (0.2-1.2); Calc. Creatinine Clearance 0 mL/min (70-130); Calcium 8.7 mg/dL (7.8-10.44); Carbon Dioxide 27 mmol/L (23-31); Chloride 99 mmol/L (98-107); Estimated GFR-MDRD 83; Globulin 2.3 g/dL (2.4-3.5); Glucose 188 mg/dL (83-110); Potassium 4.3 mmol/L (3.5-5.1); Protein, Total 5.9 g/dL (6.0-8.3); Sodium 134 mmol/L (136-145)
--- NOTE | 2019-10-14 08:18 | RAD ---
RADIOGRAPH CHEST 1 VIEW: DATE: 10/14/2019 HISTORY: 74-year-old female with dyspnea FINDINGS: There is hyperinflation of the lungs, consistent with COPD. There is no evidence of airspace density, pulmonary edema, cardiomegaly, or pneumothorax. The lateral costophrenic angles are not effaced. IMPRESSION: 1) No acute pulmonary findings. 2) emphysema.
--- NOTE | 2019-10-14 10:37 | CT ---
CT ABDOMEN WITH CONTRAST CT PELVIS WITH CONTRAST: DATE: 10/14/2019 HISTORY: 74-year-old female with left lower quadrant abdominal pain. COMPARISON: 09/12/2018 TECHNIQUE: IV injection of iodinated contrast media: administered. Oral contrast media:Not administered FINDINGS: Centrilobular emphysema noted at lung bases. No consolidation or pleural effusion. No cardiomegaly. Heavy atherosclerotic calcification of nonaneurysmal abdominal aorta and iliac arteries. Normal urinary bladder, bilateral kidneys, liver, pancreas, spleen, and adrenals. Surgically absent uterus and appendix. Multiple sigmoid colonic diverticula. No signs of diverticulitis. No ascites, small bowel dilation, or pneumoperitoneum. Diffuse osteopenia. Broad indentation of inferior endplate of L1 vertebral body, new since prior study. Severe disc space narrowing at L5-S1 with vacuum disc phenomenon representing degenerative disc disea se. Moderately large volume of colonic stool in cecum, ascending colon, hepatic flexure, and proximal two thirds of transverse colon. Splenic flexure and the rest of the more distal colon, are c ollapsed. No major interval change other than L1 vertebra. IMPRESSION: 1) no acute findings. 2) centrilobular emphysema. 3) status post appendectomy and hysterectomy. 4) compression fracture of inferior endplate of L1 vertebra, of indeterminate age, but which occurred sometime after the previous CT of 09/12/2018 and previous lumbar spine MRI of 01/11/2019
[2019-10-14] MEDS ORDERED: Ketorolac Tromethamine 30 MG/ML VIAL ONE (11:43)
[2019-10-14] MEDS ORDERED: Iopamidol-370 76% 500 ML 1 ML ONE (15:06)
== END 2019-10-14 12:33 | disposition home or self-care (01) ==
LOC: ERS 07:13
DX: J44.1 Chronic obstructive pulmonary disease with (acute) exacerbation (principal); M48.56XA Collapsed vertebra, not elsewhere classified, lumbar region, initial encounter for fracture; I10 Essential (primary) hypertension; E78.5 Hyperlipidemia, unspecified; E11.9 Type 2 diabetes mellitus without complications; K21.9 Gastro-esophageal reflux disease without esophagitis; F32.9 Major depressive disorder, single episode, unspecified; F17.200 Nicotine dependence, unspecified, uncomplicated; Z79.899 Other long term (current) drug therapy; Z79.82 Long term (current) use of aspirin; Z79.84 Long term (current) use of oral hypoglycemic drugs
CPT/HCPCS: 36415; 71045; 74177; 80053; 84484; 85025; 93005; 96374; 96375; J1885; J2930; Q9967

== ENCOUNTER 2020-01-17 12:47 | Outpatient (CLI) | payer MEDICARE, MEDICAID ==
--- NOTE | 2020-01-17 15:10 | MRI ---
MRI LUMBAR SPINE NONCONTRAST: DATE: 01/17/2020 HISTORY: 74-year-old female with low back pain. G 89.4, chronic pain syndrome S 32.010-, compression fracture of L1 vertebra, sequela M 51.9, lumbar disc disease M 48.061, degenerative lumbar spinal stenosis. COMPARISON: 01/11/2019 FINDINGS: There are 5 lumbar-type vertebrae. Conus medullaris terminates at L1-2. T12-L1:Moderate sized central and bilateral paracentral extruded disc herniation indents ventral surf vivi of thecal sac, decreasing the cross-sectional area of the spinal canal by approximately 25%. Posterior annular fissure. No neural foraminal stenosis. No interval change. L1-2:Broad indentation of inferior endplate of L1 with irregularity of margins, and inferior endplate bone marrow edema, with minimal bony retropulsion, is new since 01/11/2019 MRI. This was present on CT abdomen and pelvis of 10/14/2019. Mild endplate indentation of ventral aspect of thecal sac. No high-grade central spinal canal stenosis. Bilateral mild to moderate facet DJD. Worsening of now moderate bilateral neural foraminal stenosis. New broad band of bone marrow edema throughout the uppe r half of the L2 vertebral body. New mild, shallow broad indentation of superior endplate of L2, with mild loss of height, and minimal bony retropulsion. L2-3:Disc bulge. Small central disc extrusion with superior and inferior migration of disc material. This, along with new retropulsion of superior endplate of L3 focally centrally, indents the ventral aspect of the thecal sac, causing mild central spinal canal stenosis at the disc level, and also mild central spinal canal stenosis at the pedicle level of L3. New broad band of bone marrow edema throughout the upper half of the L3 vertebral body. New mild, shallow broad indentation of superior e ndplate of L3, with mild loss of height. L3-4:Interval development of mild to moderate disc space narrowing, especially posteriorly, with new or worsening central and bilateral paracentral broad-based disc herniation with slight superior migration of disc material. This, together with mild to moderate bilateral facet DJD, results in now mild to moderate central spinal canal stenosis. Mild bilateral neural foraminal stenosis. L4-5:Disc space maintained. Mild disc bulge. Mild to moderate facet DJD bilaterally. Mild bilateral n eural foraminal stenosis. No high-grade central spinal canal stenosis. L5-S1:Severe disc space narrowing. Modic type I and type II endplate marrow changes. Diffuse disc bul ge. Superimposed central small disc extrusion occupies anterior epidural fat but only minimally indents thecal sac, and abuts the left S1 nerve root. There is No significant central spinal canal st enosis. No high-grade neural foraminal stenosis. Mild bilateral facet DJD. No interval change. IMPRESSION: 1) several osteoporotic mild compression/burst fractures, new since the previous MRI of 01/11/2019 as follows: 2) subacute mild compression/burst fracture inferior endplate of L1. 3) subacute or acute mild compression/burst fracture of superior endplate of L2. 4) subacute or acute mild compression/burst fracture of superior endplate of L3. 5) interval worsening of degenerative disc disease at L3-4, with interval worsening of broad-based mi ld disc herniation, resulting in mild to moderate central spinal canal stenosis at that level. 6) no severe central spinal canal stenosis at any level.
== END 2020-01-17 12:48 | disposition home or self-care (01) ==
LOC: SCSMRI 12:47
PROVIDERS: ATTEND Family Medicine
DX: S32.011S Stable burst fracture of first lumbar vertebra, sequela (principal); M51.9 Unspecified thoracic, thoracolumbar and lumbosacral intervertebral disc disorder; M48.061 Spinal stenosis, lumbar region without neurogenic claudication; G89.4 Chronic pain syndrome; S32.021A Stable burst fracture of second lumbar vertebra, initial encounter for closed fracture; S32.031A Stable burst fracture of third lumbar vertebra, initial encounter for closed fracture; M51.36 Other intervertebral disc degeneration, lumbar region; M51.26 Other intervertebral disc displacement, lumbar region
CPT/HCPCS: 72148

== ENCOUNTER 2020-07-14 05:53 | Day surgery (SDC) | payer MEDICARE, MEDICAID ==
[2020-07-11 11:58] VITALS: BMI 25.7
[2020-07-14] MEDS ORDERED: PROPOFOL 200 MG/20 ML VIAL ONE (08:09)
[2020-07-14] MEDS ORDERED: Lidocaine 1% PF 5 ML VIAL ONE (08:09)
[2020-07-14] MEDS ORDERED: HYDROcodone/Acetaminophen 5/325 mg Tablet ONE (08:46)
== END 2020-07-14 09:34 | disposition home or self-care (01) ==
LOC: SDC 05:53
PROVIDERS: ATTEND Internal Medicine Gastroenterology
PROC: 0DB98ZX Excision of Duodenum, Via Natural or Artificial Opening Endoscopic, Diagnostic (ICD-10-PCS; principal; 2020-07-14)
DX: D50.9 Iron deficiency anemia, unspecified (principal); J44.9 Chronic obstructive pulmonary disease, unspecified; K21.9 Gastro-esophageal reflux disease without esophagitis; I10 Essential (primary) hypertension; E78.5 Hyperlipidemia, unspecified; E11.9 Type 2 diabetes mellitus without complications; F03.90 Unspecified dementia, unspecified severity, without behavioral disturbance, psychotic disturbance, mood disturbance, and anxiety; E66.3 Overweight; Z68.25 Body mass index [BMI] 25.0-25.9, adult; Z79.82 Long term (current) use of aspirin; Z79.84 Long term (current) use of oral hypoglycemic drugs; Z79.899 Other long term (current) drug therapy; Z88.5 Allergy status to narcotic agent; Z88.8 Allergy status to other drugs, medicaments and biological substances
CPT/HCPCS: 88305; J2704

== ENCOUNTER 2020-11-15 08:19 | Emergency (ER) | payer MEDICARE, MEDICAID ==
[2020-11-15] MEDS ORDERED: Albuterol Sulfate 2.5 mg/3 ml Neb ONE ×2 (08:38→08:39)
[2020-11-15 09:06] LABS: #Basophils 0.1 thou/uL (0.0-0.2); #Eosinphils 0.1 thou/uL (0.0-0.7); #Lymphocytes 2.1 thou/uL (1.20-3.40); #Neutrophils 6.1 thou/uL (1.40-6.50); %Basophils 0.7 % (0.0-1.0); %Eosinophils 1.2 % (0.0-10.0); %Lymphocytes 21.9 % (21.0-51.0); %Neutrophils 65.2 % (42.0-75.0); Mean Corpuscular Hemoglobin 33.1 pg (27.0-31.0); Mean Platelet Volume 7.4 fL (7.4-10.4); Platelet Count 229 thou/uL (130-400); RBC Distribution Width 11.4 % (11.5-14.5); Red Blood Cell (RBC) Count 3.32 mill/uL (4.20-5.40); White Blood Cell (WBC) Count 9.3 thou/uL (4.8-10.8)
[2020-11-15] MEDS ORDERED: Ipratropium Bromide 2.5 ml Neb ONE (09:10)
[2020-11-15 09:17] LABS: ALT (SGPT) 12 U/L (8-55); AST (SGOT) 12 U/L (5-34); Alkaline Phosphatase 78 U/L (40-110); Anion Gap 11 mmol/L (10-20); BUN (Urea Nitrogen) 14 mg/dL (9.8-20.1); Bilirubin, Total 0.4 mg/dL (0.2-1.2); Calc. Creatinine Clearance 0 mL/min (70-130); Calcium 9.6 mg/dL (7.8-10.44); Carbon Dioxide 33 mmol/L (23-31); Chloride 98 mmol/L (98-107); Globulin 2.5 g/dL (2.4-3.5); Glucose 145 mg/dL (83-110); Lipase 13 U/L (8-78); Potassium 4.4 mmol/L (3.5-5.1); Protein, Total 6.5 g/dL (5.8-8.1); Sodium 138 mmol/L (136-145)
[2020-11-15] MEDS ORDERED: Ondansetron PF 4 MG/2 ML Vial ONE (09:18)
[2020-11-15] MEDS ORDERED: Aspirin Chewable 81 MG TAB ONE (09:18)
[2020-11-15] MEDS ORDERED: methylPREDNISolone Sod Succ/PF 125 MG/2 ML VIAL ONE (09:18)
[2020-11-15] MEDS ORDERED: Morphine 4 MG/ML VIAL ONE (09:18)
[2020-11-15 10:51] LABS: Bacteria/HPF 2+ HPF (None Seen); Bilirubin Negative (Negative); Blood, Urine 1+ (Negative); Clarity Extra Turbid (Clear); Glucose, Urine (Dipstick) Normal (Negative); Ketone, Urine Negative (Negative); Leukocyte 500 Leu/uL (Negative); Nitrite 2+ (Negative); Protein, Urine (Dipstick) 30 mg/dL (Neg-Trace); Squamous Epithelial None Seen HPF (0-3); Urobilinogen Normal mg/dL (Less than 2); WBC/HPF Greater than 50 HPF (0-3); pH, Urine 6.5 (5.0-9.0)
[2020-11-15] MEDS ORDERED: Iopamidol-370 76% 500 ML 1 ML ONE (10:51)
[2020-11-15 10:52] LABS: Specific Gravity, Urine 1.046 (1.002-1.036)
[2020-11-15] MEDS ORDERED: cefTRIAXone\\ROCEPHIN 1 GM VIAL ONE (11:57)
== END 2020-11-15 13:58 | disposition home or self-care (01) ==
LOC: ERS 08:19
DX: N39.0 Urinary tract infection, site not specified (principal); E04.1 Nontoxic single thyroid nodule; J44.1 Chronic obstructive pulmonary disease with (acute) exacerbation; R10.13 Epigastric pain; R10.11 Right upper quadrant pain; R11.0 Nausea; I10 Essential (primary) hypertension; E78.00 Pure hypercholesterolemia, unspecified; E11.9 Type 2 diabetes mellitus without complications; K21.9 Gastro-esophageal reflux disease without esophagitis; Z87.891 Personal history of nicotine dependence; Z79.84 Long term (current) use of oral hypoglycemic drugs; Z79.82 Long term (current) use of aspirin
CPT/HCPCS: 36415; 51701; 71045; 71275; 74174; 80053; 81003; 81015; 83605; 83690; 83880; 84484; 85025; 87040; 87077; 87086; 87186; 93005; 94640; 96365; 96375; J0696; J2270; J2405; J2930; J7611; Q9967

== ENCOUNTER 2021-02-12 09:17 | Emergency (ER) | payer MEDICARE, MEDICAID ==
[2021-02-12 10:00] LABS: #Eosinphils 0.1 thou/uL (0.0-0.7); #Lymphocytes 1.1 thou/uL (1.20-3.40); #Monocytes 0.8 thou/uL (0.11-0.59); #Neutrophils 4.1 thou/uL (1.40-6.50); %Basophils 0.2 % (0.0-1.0); %Eosinophils 2.4 % (0.0-10.0); %Lymphocytes 17.9 % (21.0-51.0); %Neutrophils 66.5 % (42.0-75.0); Hemoglobin 10.7 g/dL (12.0-16.0); Mean Corpuscular HGB CONC 32.3 g/dL (32.0-36.0); Mean Corpuscular Hemoglobin 31.5 pg (27.0-31.0); Mean Corpuscular Volume 97.3 fL (78.0-98.0); Mean Platelet Volume 6.6 fL (7.4-10.4); Platelet Count 279 thou/uL (130-400); RBC Distribution Width 11.1 % (11.5-14.5); Red Blood Cell (RBC) Count 3.41 mill/uL (4.20-5.40); White Blood Cell (WBC) Count 6.2 thou/uL (4.8-10.8)
[2021-02-12 10:26] LABS: ALT (SGPT) 9 U/L (8-55); AST (SGOT) 11 U/L (5-34); Albumin 3.4 g/dL (3.4-4.8); Alkaline Phosphatase 72 U/L (40-110); Anion Gap 12 mmol/L (10-20); BUN (Urea Nitrogen) 10 mg/dL (9.8-20.1); Bilirubin, Total 0.3 mg/dL (0.2-1.2); Calc. Creatinine Clearance 0 mL/min (70-130); Calcium 9.2 mg/dL (7.8-10.44); Carbon Dioxide 34 mmol/L (23-31); Chloride 92 mmol/L (98-107); Globulin 2.5 g/dL (2.4-3.5); Glucose 138 mg/dL (83-110); Lipase 11 U/L (8-78); Potassium 3.8 mmol/L (3.5-5.1); Protein, Total 5.9 g/dL (5.8-8.1); Sodium 134 mmol/L (136-145)
[2021-02-12 11:56] LABS: Bilirubin Negative (Negative); Blood, Urine Negative (Negative); Glucose, Urine (Dipstick) Negative (Negative); Ketone, Urine Trace mg/dL (Negative); Leukocyte Negative (Negative); Nitrite Negative (Negative); Protein, Urine (Dipstick) Negative (Neg-Trace); Urobilinogen 0.2 mg/dL (Less than 2)
[2021-02-12 11:58] LABS: Clarity Clear (Clear)
[2021-02-12 11:59] LABS: Bacteria/HPF None Seen HPF (None Seen); RBC/HPF 0-3 HPF (0-3); WBC/HPF 0-3 HPF (0-3)
== END 2021-02-12 12:25 | disposition home or self-care (01) ==
LOC: ERS 09:17
DX: K57.32 Diverticulitis of large intestine without perforation or abscess without bleeding (principal); I10 Essential (primary) hypertension; E11.9 Type 2 diabetes mellitus without complications; K21.9 Gastro-esophageal reflux disease without esophagitis; Z87.891 Personal history of nicotine dependence; Z79.82 Long term (current) use of aspirin; Z79.84 Long term (current) use of oral hypoglycemic drugs; Z79.899 Other long term (current) drug therapy
CPT/HCPCS: 36415; 74177; 80053; 81003; 83605; 83690; 85025; 93005